=== PATIENT | male | born 1965 | race Caucasian/White ===

== ENCOUNTER 2018-10-16 19:34 | Outpatient (CLI) | payer OTHER | END 2018-10-16 19:35 | disposition short-term general hospital (02) | LOC: EMS 19:34 | PROVIDERS: ATTEND Surgery | DX: R11.2 Nausea with vomiting, unspecified (principal) | CPT/HCPCS: A0425; A0427 ==

== ENCOUNTER 2020-09-17 15:09 | Outpatient (CLI) | payer OTHER | END 2020-09-17 15:10 | disposition home or self-care (01) | LOC: COV 15:09 | PROVIDERS: ATTEND Family Medicine | DX: Z20.822 Contact with and (suspected) exposure to COVID-19 (principal) ==

== ENCOUNTER 2021-08-07 13:48 | Emergency (ER) | payer OTHER ==
--- NOTE | 2021-08-07 14:07 | ED Physician Documentation ---
History of Present Illness - Stated complaint Stated Complaint: N/V, SOA - Chief complaint Chief Complaint: Abd Pain - Additonal information Additional information: Patient is a 55-year-old male presenting to the emergency department with chief complaints of anxiety, shortness of breath, nausea, vomiting. Endorses for history of PTSD. had bad migraine a few days ago. since that time has been feeling increasingly anxious, as though all of his "muscles are tightening up". States that ordinarily he manages his anxiety and PTSD at home with yoga and deep breathing exercises however these have not been working for him. He does report that he follows with a psychiatrist who practices out of [facility] and that he is currently tapering down off a course of antidepressants. has not been able to follow-up with his psychiatrist for the last several weeks because "my doctor had a stroke". Reports also on occasion takes trazodone for insomnia but has not needed this for several weeks. Denies any fever, chills, chest pain, shortness of breath, abdominal pain, use of alcohol, recreational substances, suicidal ideation, homicidal ideation, auditory or visual hallucinations. Review of Systems Constitutional: denies: Fever Eyes: denies: Loss of vision Ears: denies: Loss of hearing Nose: denies: Rhinorrhea / runny nose Throat: denies: Dental pain / toothache Cardiac: denies: Chest pain / pressure Respiratory: denies: Dyspnea : denies: Dysuria Skin: denies: Rash Musculoskeletal: denies: Neck pain Psychiatric: reports: Anxiety, Other (PTSD) PD PAST MEDICAL HISTORY - Allergies Allergies/Adverse Reactions: Allergies Allergy/AdvReac Type Severity Reaction Status Date / Time No Known Drug Allergies Allergy Verified 08/07/21 13:58 PD ED PE NORMAL - Vitals Vital signs reviewed: Yes - General General: Other (Pt with anxious affect, taking gasping heaving breaths. ) - HEENT HEENT: Atraumatic, PERRL, Pharynx benign, Dentition benign - Neck Neck: Supple, no meningeal sign, No JVD, No bruit - Cardiac Cardiac: RRR - Respiratory Respiratory: Clear bilaterally - Abdomen Abdomen: Normal bowel sounds, Soft - Male Male : Deferred - Rectal Rectal: Deferred PD ED PE EXPANDED - Psych Psych: Anxious Results - Vitals Vitals: Vital Signs - 24 hr 08/07/21 08/07/21 13:58 16:25 Temperature 37.0 C Heart Rate 94 69 Respiratory 26 H 14 Rate Blood Pressure 132/87 H 108/66 O2 Saturation 95 100 Oxygen O2 Source Room air - Labs Labs: Laboratory Tests 08/07/21 08/07/21 14:02 14:02 WBC 13.3 H RBC 5.37 Hgb 16.2 Hct 48.5 MCV 90.3 MCH 30.2 MCHC 33.4 RDW 12.6 Plt Count 225 MPV 9.7 Neut # (Auto) 10.3 H Lymph # (Auto) 1.9 Forrest # (Auto) 0.9 Eos # (Auto) 0.0 Baso # (Auto) 0.0 Absolute Nucleated RBC 0.00 Nucleated RBC % 0.0 Sodium 139 Potassium 4.0 Chloride 102 Carbon Dioxide 26 Anion Gap 11.0 BUN 18 Creatinine 1.1 Estimated GFR (MDRD) 70 L Glucose 136 H Calcium 9.9 Total Bilirubin 0.7 AST 42 ALT 49 Alkaline Phosphatase 67 Total Protein 7.0 Albumin 4.5 Globulin 2.5 Albumin/Globulin Ratio 1.8 Lipase 26 PD MEDICAL DECISION MAKING - ED course Complexity details: reviewed results, d/w patient ED course: Patient is 55-year-old male with known history PTSD, anxiety, polysubstance abuse issues that are presenting to the emergency department with acute anxiety. Patient had a low level tachycardia and an obviously anxious affect on arrival to the emergency department. Despite his agitationHe however denied any suicidal or homicidal ideation, auditory visual hallucinations and demonstrated reasonable ability to direct himself. He otherwise showed clear decision-making capacity while in the emergency department. IV access was obtained and he was given Haldol, Benadryl for agitation. I did obtain an EKG which demonstrated a normal QTC as well as some basic labs which are within normal limits are nonactionable. On reevaluation he continued to endorse for feeling somewhat agitated and offered him evaluation with social work however he declined this intervention, stating that he wanted to go home to continue following up with his outpatient psychiatrist and psychologist. At this time he does continue to demonstrate clear decision-making capacity and I will discharge for outpatient with follow-up however he was encouraged to return to the emergency department for any new or worsening symptoms. Departure - Departure Disposition: 01 Home, Self Care Clinical Impression: Anxiety, PTSD (post-traumatic stress disorder) Condition: Fair Instructions: ED Stress React Comments: Minus to care for you today at [facility]. Please continue to work towards follow-up with both your psychiatrist and your psychologist. If it anytime you change your mind and would like to be seen by the mental health nursing home social worker available in our emergency [id number] was welcome to return. If it anytime you develop any new or worsening symptoms or have thoughts of self-harm please do not hesitate to come back. Discharge Date/Time: 08/07/21 16:26
[2021-08-07 14:09] LABS: BASOPHILS % (AUTO) 0.3 %; EOSINOPHILS % (AUTO) 0.2 %; HCT - HEMATOCRIT 48.5 % (42.0-52.0); HGB - HEMOGLOBIN 16.2 g/dL (14.0-18.0); LYMPHOCYTES # (AUTO) 1.9 10^3/uL (1.5-3.5); LYMPHOCYTES % (AUTO) 14.6 %; MEAN CORPUSCULAR HEMOGLOBIN 30.2 pg (27.0-31.0); MEAN CORPUSCULAR HGB CONC 33.4 g/dL (32.0-36.0); MEAN CORPUSCULAR VOLUME 90.3 fL (80.0-94.0); MEAN PLATELET VOLUME 9.7 fL (7.4-11.4); MONOCYTES # (AUTO) 0.9 10^3/uL (0.0-1.0); MONOCYTES % (AUTO) 6.4 %; NEUTROPHILS # (AUTO) 10.3 10^3/uL (1.5-6.6); PLT - PLATELET COUNT 225 10^3/uL (130-450); RED BLOOD COUNT 5.37 10^6/uL (4.70-6.10); RED CELL DISTRIBUTION WIDTH 12.6 % (12.0-15.0); WHITE BLOOD COUNT 13.3 x10^3/uL (4.8-10.8)
[2021-08-07] MEDS: HALOPERIDOL 5 MG/ML VIAL IM STA (14:16)
[2021-08-07] MEDS: diphenhydrAMINE INJ 50 MG/ML VIAL IVP STA (14:16)
[2021-08-07] MEDS: SODIUM CHLORIDE 0.9% 1,000 ML IV STA (14:16)
[2021-08-07 14:23] LABS: ALBUMIN 4.5 g/dL (3.2-5.5); ALBUMIN/GLOBULIN RATIO 1.8 (1.0-2.2); BILIRUBIN,TOTAL 0.7 mg/dL (0.2-1.0); CALCIUM 9.9 mg/dL (8.5-10.3); CREATININE 1.1 mg/dL (0.6-1.2)
[2021-08-07 16:26] VITALS: BP 108/66
== END 2021-08-07 16:26 | disposition home or self-care (01) ==
LOC: ED 13:48
DX: F41.9 Anxiety disorder, unspecified (principal); F43.10 Post-traumatic stress disorder, unspecified
CPT/HCPCS: 36415; 80053; 83690; 85025; 93005; 96361; 96372; 96374; 99284; J1200

== ENCOUNTER 2021-08-16 08:00 | Outpatient (CLI) | payer OTHER | END 2021-08-16 23:59 | disposition home or self-care (01) | LOC: LAB.S 08:00 | PROVIDERS: ATTEND Physician Assistant Medical | DX: R11.2 Nausea with vomiting, unspecified (principal); Z20.822 Contact with and (suspected) exposure to COVID-19 | CPT/HCPCS: 87275; 87276 ==

== ENCOUNTER 2021-08-16 13:14 | Inpatient (IN) | payer OTHER ==
[2021-08-16] MEDS ORDERED: LACTATED RINGERS 2,109.21 ML IV STA (13:33)
[2021-08-16] MEDS ORDERED: HALOPERIDOL 5 MG/ML VIAL IVP ONE (13:34)
--- NOTE | 2021-08-16 13:37 | ED Physician Documentation ---
History of Present Illness - Stated complaint Stated Complaint: FEVER,BODY PX - Chief complaint Chief Complaint: General - History obtained from History obtained from: Patient - Additonal information Additional information: This is a medically healthy 55-year-old gentleman with history of PTSD who was seen last week for panicky symptoms. He was doing well for a few days after that but over the last 3 days or so has had body aches, headache, light sensitivity, neck stiffness, joint aches, vomiting. There is no associated sore throat, runny nose, cough, or diarrhea. No sick contacts. He has been immunized against Covid. He was seen at the urgent care and given some medications which were not too helpful and then came here for further evaluation and treatment. Review of Systems Ten Systems: 10 systems reviewed and negative Constitutional: reports: Fever, Chills, Myalgias, Fatigue Ears: denies: Loss of hearing, Ear pain Nose: denies: Rhinorrhea / runny nose Throat: denies: Sore throat Cardiac: denies: Chest pain / pressure, Palpitations Respiratory: denies: Dyspnea, Cough PD PAST MEDICAL HISTORY - Past Medical History Psych: Anxiety - Allergies Allergies/Adverse Reactions: Allergies Allergy/AdvReac Type Severity Reaction Status Date / Time No Known Drug Allergies Allergy Verified 08/07/21 13:58 - Social History Does the pt smoke?: No Smoking Status: Never smoker Does the pt drink ETOH?: Yes - Immunizations Immunizations are current?: No - POLST Patient has POLST: No PD ED PE NORMAL - Vitals Vital signs reviewed: Yes - General General: Alert and oriented X 3, Other (He is noted to be hypotensive which is repeated on multiple readings in both arms and both arms are equivalent. He is mildly anxious and photophobic. Not septic appearing.) - Neck Neck: Supple, no meningeal sign (There is absolutely no nuchal rigidity.) - Cardiac Cardiac: RRR, No murmur - Respiratory Respiratory: No respiratory distress, Clear bilaterally - Abdomen Abdomen: Normal bowel sounds, Soft, Non tender - Back Back: No CVA TTP, No spinal TTP - Derm Derm: Normal color, Warm and dry, No rash - Extremities Extremities: No edema, No calf tenderness / cord - Neuro Neuro: Alert and oriented X 3, Normal speech Eye Opening: Spontaneous Motor: Obeys Commands Verbal: Oriented GCS Score: 15 - Psych Psych: Normal mood, Normal affect Results - Vitals Vitals: Vital Signs - 24 hr 08/16/21 08/16/21 08/16/21 13:20 13:34 13:45 Temperature 36.6 C Heart Rate 74 67 66 Respiratory 18 12 11 L Rate Blood Pressure 80/40 L 84/51 L 78/54 L O2 Saturation 98 100 100 08/16/21 08/16/21 08/16/21 13:53 14:04 14:27 Temperature Heart Rate 65 63 73 Respiratory 13 16 15 Rate Blood Pressure 84/51 L 80/58 L 92/53 L O2 Saturation 100 100 95 08/16/21 08/16/21 08/16/21 14:30 15:00 15:55 Temperature Heart Rate 66 67 69 Respiratory 11 L 16 10 L Rate Blood Pressure 88/52 L 95/56 L 96/50 L O2 Saturation 99 97 100 08/16/21 08/16/21 08/16/21 16:15 16:57 17:00 Temperature Heart Rate 66 72 70 Respiratory 23 16 14 Rate Blood Pressure 86/49 L 94/55 L 94/53 L O2 Saturation 100 97 96 Oxygen O2 Source Room air - Labs Labs: Microbiology 08/16/21 16:07 CSF Culture - Preliminary Cerebral Spinal Fluid Laboratory Tests 08/16/21 08/16/21 08/16/21 13:28 13:40 13:40 WBC 7.9 RBC 4.53 L Hgb 13.8 L Hct 40.4 L MCV 89.2 MCH 30.5 MCHC 34.2 RDW 12.8 Plt Count 84 L MPV 10.4 Reticulocyte % (Auto) Neut # (Auto) Not Reportable Lymph # (Auto) Not Reportable Gove # (Auto) Not Reportable Eos # (Auto) Not Reportable Baso # (Auto) Not Reportable Absolute Nucleated RBC Not Reportable Total Counted 100 Band Neuts % (Manual) 0 Abnorm Lymph % (Manual) 0 Nucleated RBC % Not Reportable Neutrophils # (Manual) 7.0 H Lymphocytes # (Manual) 0.6 L Monocytes # (Manual) 0.2 Eosinophils # (Manual) 0.1 Basophils # (Manual) 0.0 Differential Comment MANUAL DIFFERENTIAL Manual Slide Review Indicated WBC Morphology NORMAL APPEARANCE Platelet Estimate DECREASED (<130,000) Platelet Morphology NORMAL SONU RBC Morph Micro Appear NORMAL APPEARANCE ESR Absolute Retic PT INR APTT Fibrinogen D-Dimer Sodium 126 L Potassium 3.2 L Chloride 91 L Carbon Dioxide 24 Anion Gap 11.0 BUN 20 Creatinine 1.4 H Estimated GFR (MDRD) 53 L Glucose 145 H Lactic Acid Calcium 8.6 Total Bilirubin 2.1 H Direct Bilirubin Indirect Bilirubin AST 58 H ALT 54 Alkaline Phosphatase 58 Lactate Dehydrogenase Total Creatine Kinase C-Reactive Protein Total Protein 6.3 L Albumin 3.4 Globulin 2.9 Albumin/Globulin Ratio 1.2 TSH Cortisol Urine Color Urine Clarity Urine pH Ur Specific Bellflower Urine Protein Urine Glucose (UA) Urine Ketones Urine Occult Blood Urine Nitrite Urine Bilirubin Urine Urobilinogen Ur Leukocyte Esterase Urine RBC Urine WBC Ur Squamous Epith Cells Urine Bacteria Urine Culture Comments CSF Color CSF Clarity Xanthrochromic CSF WBC CSF RBC CSF Cell Count Tube # CSF Glucose CSF Total Protein Nasal Adenovirus (PCR) NOT DETECTED Nasal B. parapertussis DNA (PCR) NOT DETECTED Nasal Coronavir 229E PCR NOT DETECTED Nasal Coronavir HKU1 PCR NOT DETECTED Nasal Coronavir NL63 PCR NOT DETECTED Nasal Coronavir OC43 PCR NOT DETECTED Nasal Enterovir/Rhinovir PCR NOT DETECTED Nasal Influenza B PCR NOT DETECTED Nasal Influenza A PCR NOT DETECTED Nasal Parainfluen 1 PCR NOT DETECTED Nasal Parainfluen 2 PCR NOT DETECTED Nasal Parainfluen 3 PCR NOT DETECTED Nasal Parainfluen 4 PCR NOT DETECTED Nasal RSV (PCR) NOT DETECTED Nasal B.pertussis DNA PCR NOT DETECTED Nasal C.pneumoniae (PCR) NOT DETECTED Lukas Human Metapneumo PCR NOT DETECTED Nasal M.pneumoniae (PCR) NOT DETECTED Nasal SARS-CoV-2 (PCR) NOT DETECTED Ethyl Alcohol 08/16/21 08/16/21 08/16/21 13:40 13:40 13:40 WBC RBC Hgb Hct MCV MCH MCHC RDW Plt Count MPV Reticulocyte % (Auto) Neut # (Auto) Lymph # (Auto) Gove # (Auto) Eos # (Auto) Baso # (Auto) Absolute Nucleated RBC Total Counted Band Neuts % (Manual) Abnorm Lymph % (Manual) Nucleated RBC % Neutrophils # (Manual) Lymphocytes # (Manual) Monocytes # (Manual) Eosinophils # (Manual) Basophils # (Manual) Differential Comment Manual Slide Review WBC Morphology Platelet Estimate Platelet Morphology RBC Morph Micro Appear ESR Absolute Retic PT INR APTT Fibrinogen D-Dimer Sodium Potassium Chloride Carbon Dioxide Anion Gap BUN Creatinine Estimated GFR (MDRD) Glucose Lactic Acid 2.0 Calcium Total Bilirubin Direct Bilirubin Indirect Bilirubin AST ALT Alkaline Phosphatase Lactate Dehydrogenase Total Creatine Kinase 80 C-Reactive Protein 21.3 H Total Protein Albumin Globulin Albumin/Globulin Ratio TSH 1.17 Cortisol 28.1 Urine Color Urine Clarity Urine pH Ur Specific Bellflower Urine Protein Urine Glucose (UA) Urine Ketones Urine Occult Blood Urine Nitrite Urine Bilirubin Urine Urobilinogen Ur Leukocyte Esterase Urine RBC Urine WBC Ur Squamous Epith Cells Urine Bacteria Urine Culture Comments CSF Color CSF Clarity Xanthrochromic CSF WBC CSF RBC CSF Cell Count Tube # CSF Glucose CSF Total Protein Nasal Adenovirus (PCR) Nasal B. parapertussis DNA (PCR) Nasal Coronavir 229E PCR Nasal Coronavir HKU1 PCR Nasal Coronavir NL63 PCR Nasal Coronavir OC43 PCR Nasal Enterovir/Rhinovir PCR Nasal Influenza B PCR Nasal Influenza A PCR Nasal Parainfluen 1 PCR Nasal Parainfluen 2 PCR Nasal Parainfluen 3 PCR Nasal Parainfluen 4 PCR Nasal RSV (PCR) Nasal B.pertussis DNA PCR Nasal C.pneumoniae (PCR) Lukas Human Metapneumo PCR Nasal M.pneumoniae (PCR) Nasal SARS-CoV-2 (PCR) Ethyl Alcohol 08/16/21 08/16/21 08/16/21 14:26 14:38 14:39 WBC RBC 4.27 L Hgb Hct MCV MCH MCHC RDW Plt Count MPV Reticulocyte % (Auto) 0.73 Neut # (Auto) Lymph # (Auto) Gove # (Auto) Eos # (Auto) Baso # (Auto) Absolute Nucleated RBC Total Counted Band Neuts % (Manual) Abnorm Lymph % (Manual) Nucleated RBC % Neutrophils # (Manual) Lymphocytes # (Manual) Monocytes # (Manual) Eosinophils # (Manual) Basophils # (Manual) Differential Comment Manual Slide Review WBC Morphology Platelet Estimate Platelet Morphology RBC Morph Micro Appear ESR 20 Absolute Retic 0.031 PT INR APTT Fibrinogen D-Dimer Sodium Potassium Chloride Carbon Dioxide Anion Gap BUN Creatinine Estimated GFR (MDRD) Glucose Lactic Acid Calcium Total Bilirubin Direct Bilirubin Indirect Bilirubin AST ALT Alkaline Phosphatase Lactate Dehydrogenase Total Creatine Kinase C-Reactive Protein Total Protein Albumin Globulin Albumin/Globulin Ratio TSH Cortisol Urine Color Urine Clarity Urine pH Ur Specific Bellflower Urine Protein Urine Glucose (UA) Urine Ketones Urine Occult Blood Urine Nitrite Urine Bilirubin Urine Urobilinogen Ur Leukocyte Esterase Urine RBC Urine WBC Ur Squamous Epith Cells Urine Bacteria Urine Culture Comments CSF Color CSF Clarity Xanthrochromic CSF WBC CSF RBC CSF Cell Count Tube # CSF Glucose CSF Total Protein Nasal Adenovirus (PCR) Nasal B. parapertussis DNA (PCR) Nasal Coronavir 229E PCR Nasal Coronavir HKU1 PCR Nasal Coronavir NL63 PCR Nasal Coronavir OC43 PCR Nasal Enterovir/Rhinovir PCR Nasal Influenza B PCR Nasal Influenza A PCR Nasal Parainfluen 1 PCR Nasal Parainfluen 2 PCR Nasal Parainfluen 3 PCR Nasal Parainfluen 4 PCR Nasal RSV (PCR) Nasal B.pertussis DNA PCR Nasal C.pneumoniae (PCR) Lukas Human Metapneumo PCR Nasal M.pneumoniae (PCR) Nasal SARS-CoV-2 (PCR) Ethyl Alcohol < 5.0 08/16/21 08/16/21 08/16/21 14:39 14:39 14:39 WBC RBC Hgb Hct MCV MCH MCHC RDW Plt Count MPV Reticulocyte % (Auto) Neut # (Auto) Lymph # (Auto) Gove # (Auto) Eos # (Auto) Baso # (Auto) Absolute Nucleated RBC Total Counted Band Neuts % (Manual) Abnorm Lymph % (Manual) Nucleated RBC % Neutrophils # (Manual) Lymphocytes # (Manual) Monocytes # (Manual) Eosinophils # (Manual) Basophils # (Manual) Differential Comment Manual Slide Review WBC Morphology Platelet Estimate Platelet Morphology RBC Morph Micro Appear ESR Absolute Retic PT 16.4 H INR 1.5 H APTT 28.6 Fibrinogen 510 H D-Dimer 817.5 H Sodium Potassium Chloride Carbon Dioxide Anion Gap BUN Creatinine Estimated GFR (MDRD) Glucose Lactic Acid Calcium Total Bilirubin 2.0 H Direct Bilirubin 0.4 Indirect Bilirubin 1.6 AST ALT Alkaline Phosphatase Lactate Dehydrogenase 171 Total Creatine Kinase C-Reactive Protein Total Protein Albumin Globulin Albumin/Globulin Ratio TSH Cortisol Urine Color Urine Clarity Urine pH Ur Specific Bellflower Urine Protein Urine Glucose (UA) Urine Ketones Urine Occult Blood Urine Nitrite Urine Bilirubin Urine Urobilinogen Ur Leukocyte Esterase Urine RBC Urine WBC Ur Squamous Epith Cells Urine Bacteria Urine Culture Comments CSF Color CSF Clarity Xanthrochromic CSF WBC CSF RBC CSF Cell Count Tube # CSF Glucose CSF Total Protein Nasal Adenovirus (PCR) Nasal B. parapertussis DNA (PCR) Nasal Coronavir 229E PCR Nasal Coronavir HKU1 PCR Nasal Coronavir NL63 PCR Nasal Coronavir OC43 PCR Nasal Enterovir/Rhinovir PCR Nasal Influenza B PCR Nasal Influenza A PCR Nasal Parainfluen 1 PCR Nasal Parainfluen 2 PCR Nasal Parainfluen 3 PCR Nasal Parainfluen 4 PCR Nasal RSV (PCR) Nasal B.pertussis DNA PCR Nasal C.pneumoniae (PCR) Lukas Human Metapneumo PCR Nasal M.pneumoniae (PCR) Nasal SARS-CoV-2 (PCR) Ethyl Alcohol 08/16/21 08/16/21 15:58 16:07 WBC RBC Hgb Hct MCV MCH MCHC RDW Plt Count MPV Reticulocyte % (Auto) Neut # (Auto) Lymph # (Auto) Gove # (Auto) Eos # (Auto) Baso # (Auto) Absolute Nucleated RBC Total Counted Band Neuts % (Manual) Abnorm Lymph % (Manual) Nucleated RBC % Neutrophils # (Manual) Lymphocytes # (Manual) Monocytes # (Manual) Eosinophils # (Manual) Basophils # (Manual) Differential Comment Manual Slide Review WBC Morphology Platelet Estimate Platelet Morphology RBC Morph Micro Appear ESR Absolute Retic PT INR APTT Fibrinogen D-Dimer Sodium Potassium Chloride Carbon Dioxide Anion Gap BUN Creatinine Estimated GFR (MDRD) Glucose Lactic Acid Calcium Total Bilirubin Direct Bilirubin Indirect Bilirubin AST ALT Alkaline Phosphatase Lactate Dehydrogenase Total Creatine Kinase C-Reactive Protein Total Protein Albumin Globulin Albumin/Globulin Ratio TSH Cortisol Urine Color YELLOW Urine Clarity HAZY Urine pH 6.0 Ur Specific Bellflower 1.020 Urine Protein 30 H Urine Glucose (UA) NEGATIVE Urine Ketones NEGATIVE Urine Occult Blood MODERATE H Urine Nitrite NEGATIVE Urine Bilirubin NEGATIVE Urine Urobilinogen 2 H Ur Leukocyte Esterase NEGATIVE Urine RBC 6-10 H Urine WBC 0-3 Ur Squamous Epith Cells NONE SEEN Urine Bacteria None Seen Urine Culture Comments NOT INDICATED CSF Color COLORLESS CSF Clarity CLEAR Xanthrochromic ABSENT CSF WBC 1 CSF RBC 3 H CSF Cell Count Tube # CSF TUBE# 3 CSF Glucose 78 H CSF Total Protein 40 Nasal Adenovirus (PCR) Nasal B. parapertussis DNA (PCR) Nasal Coronavir 229E PCR Nasal Coronavir HKU1 PCR Nasal Coronavir NL63 PCR Nasal Coronavir OC43 PCR Nasal Enterovir/Rhinovir PCR Nasal Influenza B PCR Nasal Influenza A PCR Nasal Parainfluen 1 PCR Nasal Parainfluen 2 PCR Nasal Parainfluen 3 PCR Nasal Parainfluen 4 PCR Nasal RSV (PCR) Nasal B.pertussis DNA PCR Nasal C.pneumoniae (PCR) Lukas Human Metapneumo PCR Nasal M.pneumoniae (PCR) Nasal SARS-CoV-2 (PCR) Ethyl Alcohol - Rads (name of study) CT of the head, chest PE protocol, and abdomen are all negative Radiology: EMP read contemporaneously Procedures - Lumbar Puncture Position: Laying right side Location: L3-L4, Midline approach Anesthesia: Local lidocaine CSF: Clear Other: Sterile prep and drape, Patient tolerated well, No complications, Bleeding PD MEDICAL DECISION MAKING - ED course ED course: 55-year-old gentleman with what sounds like a viral illness, he is well- appearing and there is no nuchal rigidity. That said he is hypotensive albeit not tachycardic. His medications are reviewed, not on any beta-blockers or other AV nicky blocking agents that would cause blunting of a reflex tachycardia. He remained hypotensive and still without any reflex tachycardia despite 2 L of IV crystalloid. Labs are quite interesting, since being seen here 10 days ago his white count has gone down from 13,002 7000, hemoglobin down from 16,002 13.816-13.8 despite the fact that he should be hemoconcentrated, and platelets have dropped significantly from well into the normal range to 84. His bilirubin is up a bit which was normal at the last visit, this led to consideration for hemolysis, but his LDH is normal. Also led to the thought of DIC and he does have elevated INR, fibrinogen, and D-dimer. CT of the head, angiography of the chest, and abdomen and pelvis were normal. This was followed by an LP which was unremarkable. At that point sed rate, CRP, CK, TSH were added on. Discussed the case with Dr. Kim for observation given persistent hypotension at 5:15 PM. We discussed whether or not to start antibiotics for possible sepsis. His white count is normal but he remains hypotensive with an elevated CRP and he had a fever at home so it seems reasonable to start antibiotics pending cultures. - Critical Care Time(min): 45 Time Includes: Direct patient care, Review records, Reassess patient, Document care, Coordinate care, Medical consult, Family consult for tx dec Data interpretation: Labs, Pulse ox Procedures included in critical care time: Peripheral IV Procedures excluded from critical care time: Lumbar puncture Departure - Departure Disposition: ED Place in Observation Clinical Impression: Fever, KIM (acute kidney injury), Hyponatremia, Hypotension, Thrombocytopenia Condition: Stable Discharge Date/Time: 08/16/21 18:50
[2021-08-16 13:48] LABS: BASOPHILS % (AUTO) 0.3 %; HCT - HEMATOCRIT 40.4 % (42.0-52.0); HGB - HEMOGLOBIN 13.8 g/dL (14.0-18.0); LYMPHOCYTES % (AUTO) 3.8 %; MEAN CORPUSCULAR HEMOGLOBIN 30.5 pg (27.0-31.0); MEAN CORPUSCULAR HGB CONC 34.2 g/dL (32.0-36.0); MEAN CORPUSCULAR VOLUME 89.2 fL (80.0-94.0); MEAN PLATELET VOLUME 10.4 fL (7.4-11.4); MONOCYTES % (AUTO) 3.5 %; NEUTROPHILS % (AUTO) 92.1 %; PLT - PLATELET COUNT 84 10^3/uL (130-450); RED BLOOD COUNT 4.53 10^6/uL (4.70-6.10); RED CELL DISTRIBUTION WIDTH 12.8 % (12.0-15.0); WHITE BLOOD COUNT 7.9 x10^3/uL (4.8-10.8)
[2021-08-16 14:00] LABS: ALBUMIN 3.4 g/dL (3.2-5.5); ALBUMIN/GLOBULIN RATIO 1.2 (1.0-2.2); BILIRUBIN,TOTAL 2.1 mg/dL (0.2-1.0); CALCIUM 8.6 mg/dL (8.5-10.3); CREATININE 1.4 mg/dL (0.6-1.2); POTASSIUM 3.2 mmol/L (3.5-5.0); TOTAL PROTEIN 6.3 g/dL (6.7-8.2)
[2021-08-16 14:42] LABS: SLIDE REVIEW? Indicated
[2021-08-16 14:43] LABS: ABNORMAL LYMPHS % (MANUAL) 0 %; BAND NEUTROPHILS % (MANUAL) 0 %
[2021-08-16 14:43] LABS: B. PARAPERTUSSIS- RESP PCR PAN NOT DETECTED; B. PERTUSSIS- RESP PCR PANEL NOT DETECTED; C. PNEUMONIAE- RESP PCR PANEL NOT DETECTED; CORONAVIRUS 229E-RESP PCR NOT DETECTED; CORONAVIRUS HKU1-RESP PCR NOT DETECTED; CORONAVIRUS NL63-RESP PCR NOT DETECTED; CORONAVIRUS OC43-RESP PCR NOT DETECTED; HUMAN METAPNEUMOVIRUS NOT DETECTED; INFLUENZA A- RESP PCR PANEL NOT DETECTED; INFLUENZA B - RESP PCR PANEL NOT DETECTED; M. PNEUMONIAE- RESP PCR PANEL NOT DETECTED; PARAINFLUENZA VIRUS 1 NOT DETECTED; PARAINFLUENZA VIRUS 2 NOT DETECTED; PARAINFLUENZA VIRUS 3 NOT DETECTED; PARAINFLUENZA VIRUS 4 NOT DETECTED; RHINOVIRUS/ENTEROVIRUS NOT DETECTED; RSV- RESP PCR PANEL NOT DETECTED; SARS-CoV-2 -RESP PCR PANEL NOT DETECTED
[2021-08-16 14:44] LABS: EOSINOPHILS # (MANUAL) 0.1 10^3/uL (0-0.7); LYMPHOCYTES # (MANUAL) 0.6 10^3/uL (1.5-3.5); LYMPHOCYTES % (MANUAL) 7 %; MONOCYTES # (MANUAL) 0.2 10^3/uL (0.0-1.0)
[2021-08-16 14:46] LABS: PLATELET ESTIMATE, MANUAL DECREASED (<130,000) (NORMAL)
[2021-08-16 14:47] LABS: PLATELET MORPHOLOGY NORMAL APP (NORMAL); RBC MORPHOLOGY (MULTIPLE) NORMAL APPEARANCE (NORMAL); WBC MORPHOLOGY (MULTIPLE) NORMAL APPEARANCE (NORMAL)
[2021-08-16 14:48] LABS: DIFFERENTIAL COMMENT MANUAL DIFFERENTIAL
[2021-08-16 14:48] LABS: ABSOLUTE RETICS # AUTO 0.031 10^6/uL (0.020-0.110); RED BLOOD COUNT 4.27 10^6/uL (4.70-6.10); RETICULOCYTE COUNT % (AUTO) 0.73 % (0.5-2.3)
[2021-08-16 14:53] LABS: INR 1.5 (0.8-1.2); PT - PROTHROMBIN TIME 16.4 secs (9.9-12.6)
[2021-08-16 15:00] LABS: BILIRUBIN,DIRECT 0.4 mg/dL (0.1-0.5); BILIRUBIN,INDIRECT 1.6 mg/dL
[2021-08-16] MEDS ORDERED: HYDROmorphone 1 MG/ML CARPUJECT IVP STA (15:04)
[2021-08-16 15:06] LABS: PARTIAL THROMBOPLASTIN TIME 28.6 secs (24.9-33.3)
[2021-08-16] MEDS ORDERED: IOPAMIDOL-300 100 ML VIAL ONE ×2 (15:18→16:08)
[2021-08-16 15:32] LABS: D-DIMER 817.5 ng/mL (200.0-255.0)
[2021-08-16 16:04] LABS: BILIRUBIN,URINE NEGATIVE (NEGATIVE); CLARITY,URINE HAZY (CLEAR); GLUCOSE, URINE (UA) NEGATIVE (NEGATIVE); KETONES,URINE (UA) NEGATIVE (NEGATIVE); LEUKOCYTE ESTERASE, URINE NEGATIVE (NEGATIVE); NITRITE,URINE NEGATIVE (NEGATIVE); OCCULT BLOOD,URINE MODERATE (NEGATIVE); PROTEIN,URINE 30 mg/dL (NEGATIVE); UROBILINOGEN,URINE 2 E.U./dL (NORMAL)
--- NOTE | 2021-08-16 16:07 | CT Report ---
PROCEDURE: HEAD WO INDICATIONS: headache TECHNIQUE: Noncontrast 4.5 mm thick angled axial sections acquired from the foramen magnum to the vertex. For r adiation dose reduction, the following was used: automated exposure control, adjustment of mA and/or kV according to patient size. COMPARISON: None. FINDINGS: Image quality: Excellent. CSF spaces: Basal cisterns are patent. No extra-axial fluid collections. Ventricles are normal in size and shape. Brain: No midline shift. No intracranial masses or hemorrhage. Baldwin-white matter interface is norm al. Skull and face: Calvarium and visualized facial bones are intact, without suspicious lesions. Sinuses: Visualized sinuses and mastoids are clear. IMPRESSION: No acute intracranial abnormality. Reviewed by: Elbert Jackson MD on 08/16/2021 4:06 PM [facility] Approved by: Elbert Jackson MD on 08/16/2021 4:06 PM [facility] Station ID: [id number]
--- NOTE | 2021-08-16 16:08 | XRAY Report ---
PROCEDURE: Chest 1 View X-Ray INDICATIONS: FUO TECHNIQUE: 2 AP views of the chest was acquired. COMPARISON: None. FINDINGS: Surgical changes and devices: None. Lungs and pleura: No pleural effusions or pneumothorax. Lungs are clear. Mediastinum: Mediastinal contours appear normal. Heart size is normal. Bones and chest wall: No suspicious bony lesions. Overlying soft tissues appear unremarkable. IMPRESSION: No acute cardiopulmonary abnormality. Reviewed by: Elbert Jackson MD on 08/16/2021 4:06 PM [facility] Approved by: Elbert Jackson MD on 08/16/2021 4:06 PM [facility] Station ID: [id number]
[2021-08-16 16:11] LABS: BACTERIA,URINE None Seen /HPF (None Seen); SQUAMOUS EPITHELIAL CELL,UR NONE SEEN (<= Few); WBC,URINE 0-3 /HPF (0-3)
--- NOTE | 2021-08-16 16:12 | CT Report ---
PROCEDURE: Abdomen/Pelvis W INDICATIONS: IV only, FUO CONTRAST: IV CONTRAST: Isovue 300 ml: 100 PO CONTRAST: *NO PO CONTRAST TECHNIQUE: After the administration of intravenous contrast, 5 mm thick sections acquired from the diaphragms to the symphysis. 5 mm thick coronal and sagittal reformats were acquired. For radiation dose reducti on, the following was used: automated exposure control, adjustment of mA and/or kV according to rasheed ent size. COMPARISON: None. FINDINGS: Image quality: Excellent. ABDOMEN: Lung bases: Mild atelectasis is seen in the lung bases. Scattered small cysts are seen in the lower l obes. Heart size is normal. Solid organs: Small nonspecific hypodensities are seen in both lobes of the liver that may represent cysts. Gallbladder is unremarkable. Biliary system is non dilated. Pancreas enhances normally. Spl een is within normal limits in size. No adrenal nodules. Kidneys demonstrate normal size and enhance ment, without hydronephrosis. Peritoneum and bowel: Scattered diverticula are seen in the colon without signs of acute diverticulit is. The appendix is not well-visualized, but no acute inflammatory changes are seen near the cecal ti p. Nodes and vessels: No retroperitoneal or mesenteric adenopathy by size criteria. Aorta and inferior vena cava are normal in size. Miscellaneous: No ventral hernias. PELVIS: Genitourinary: Bladder wall thickness is normal. Miscellaneous: No inguinal hernias or adenopathy. Bones: No suspicious bony lesions. No vertebral body compression fractures. IMPRESSION: No acute abnormality identified in the abdomen or pelvis. No source of fever identified. Reviewed by: Elbert Jackson MD on 08/16/2021 4:11 PM PST Approved by: Elbert Jackson MD on 08/16/2021 4:11 PM PST Station ID: [id number]
[2021-08-16 16:25] LABS: CLARITY,CSF CLEAR (CLEAR); COLOR,CSF COLORLESS (COLORLESS); CSF TUBE # CSF TUBE# 3; CSF XANTHOCHROMIA ABSENT (ABSENT); RED BLOOD CELL,CSF 3 /mm^3 (0-1); WHITE BLOOD CELL,CSF 1 /mm^3 (0-5)
[2021-08-16] MEDS ORDERED: IOPAMIDOL-300 100 ML VIAL IVP ONE (16:29)
--- NOTE | 2021-08-16 16:31 | CT Report ---
PROCEDURE: ANGIO CHEST W/WO INDICATIONS: high dimer CONTRAST: IV CONTRAST: Isovue 300 ml: 60 PO CONTRAST: *NO PO CONTRAST TECHNIQUE: After the administration of intravenous contrast, 2 mm axial images were acquired from the pulmonary apices to the posterior costophrenic angles during the arterial phase. In addition, 1 mm lung kernel and 5 mm soft tissue kernel reconstructions were performed. 3-dimensional coronal oblique maximum int ensity projection (MIP) reformats, 8 mm axial MIP, and 5 mm coronal and sagittal MPR reformats were t hen performed through the thorax. For radiation dose reduction, the following was used: automated exp osure control, adjustment of mA and/or kV according to patient size. COMPARISON: Chest radiographs 08/16/2021 FINDINGS: Image quality: Excellent. Pulmonary arteries: Pulmonary arteries are normal in size, and demonstrate no intraluminal filling d efects to suggest central pulmonary embolism. Lungs and pleura: There is mild dependent atelectasis in the lung bases. Small nonspecific cysts are seen in both lungs, predominantly in the lower lobes. No acute consolidation. No pleural effusions or pneumothorax. Central and peripheral airways are patent. Mediastinum: Heart size is normal, without pericardial effusion. No mediastinal or hilar adenopathy . Thoracic aorta is normal in caliber and enhancement. Esophagus is normal in caliber, without hiat al hernia. Bones and chest wall: No suspicious bony lesions. Ribs and thoracic spine appear intact throughout. No axillary or supraclavicular adenopathy. The thyroid is normal in size. Abdomen: Visualized upper abdominal solid organs appear normal in the early arterial phase of enhanc ement. IMPRESSION: 1.No acute pulmonary embolus. 2.No acute abnormality is seen in the chest. Reviewed by: Elbert Jackson MD on 08/16/2021 4:29 PM PST Approved by: Elbert Jackson MD on 08/16/2021 4:29 PM PST Station ID: [id number]
[2021-08-16 16:36] LABS: CSF - GLUCOSE 78 mg/dL (45-70); TOTAL PROTEIN,CSF 40 mg/dL (15-45)
[2021-08-16 17:02] LABS: CORTISOL 28.1 ug/dL
[2021-08-16 17:07] LABS: THYROID STIMULATING HORMONE 1.17 uIU/mL (0.34-5.60)
[2021-08-16 17:10] LABS: CRP - C-REACTIVE PROTEIN 21.3 mg/dL (0-1.0)
[2021-08-16] MEDS ORDERED: cefTRIAXone 2 GM in SODIUM CHLORIDE 0.9% MINIBAG 100 ML IV STA (17:15)
[2021-08-16] MEDS ORDERED: VANCOMYCIN INJ 1.5 GM in SODIUM CHLORIDE 0.9% 500 ML IV STA (17:15)
[2021-08-16] MEDS ORDERED: ONDANSETRON 4 MG/2 ML VIAL IVP PRN (17:21)
[2021-08-16] MEDS ORDERED: POTASSIUM CHLORIDE 20 MEQ TABLET PO STA (17:29)
--- NOTE | 2021-08-16 17:31 | HISTORY & PHYSICAL EXAMINATION ---
Chief Complaint - Chief Complaint Chief Complaint: generalized weakness History of Present Illness - Admitted From Admitted From:: ER - History Obtained From Records Reviewed: [facility] History obtained from: pt and ER notes Exam Limitations: no - History of Present Illness HPI Comment/Other: This is a 55-year-old gentleman with a medical history significant of anxiety, PTSD, panicky symptoms, alcohol abuse and quitted alcohol one year ago who present ER complain of headache, neck pain, whole body ache and feeling of sick ness. He report he had fever at 100.6 with chill at home. He has poor appetite, did not drink enough fluid. over the last 3 days he had body aches, headache behind his bilateral eye, light sensitivity, neck pain, joint aches, nausea, vomiting, malaise. He report he has hx of sepsis without known infection resource. He usually run low blood pressure at home about 100/60. His PCP tried medicated for him for his low blood pressure, but he could not tolerate the medication, he did not remember the medication name. pt report he has no sick contacts. He has been immunized against Covid. Pt denies chest pain, shortness of breath. In ER pt was found to have low blood pressure and Afebrile. Initially his BP is 80/40, after IVF, his BP blood is upto 94/53. WBC and lactic acid is at normal arrange. Because pt complain of headache and neck pain, pt had Lumbar puncture and CSF staining and culture. WBC is 1, and glucose is 78. CSF preliminary culture show no organism found, no WBC. CTA of chest, CT of head and abdomen and CXR all are negative for acute process. ER start with Antibiotics Rocephin and vancomycin and started with intravenous IV fluids 2 liters. Given above medical conditions, medical team was consulted for admission. Discussed the care goal with the patient, patient hope to have full code. History - Past Medical History Psych: reports: Anxiety - Family & Social History Social History Notes: Patient Report he quit alcohol 1 year ago, he denies cigarette smoking or drug issue - POLST Patient has POLST: No Meds/Allgy - Allergies Allergies/Adverse Reactions: Allergies Allergy/AdvReac Type Severity Reaction Status Date / Time No Known Drug Allergies Allergy Verified 08/07/21 13:58 Review of Systems - Constitutional Constitutional: reports: Fatigue, Fever, Chills, Malaise, Weakness, Poor appetite - Eyes Eyes: denies: Pain, Blurred vision, Field loss, Vision loss - Ears, Nose & Throat Ears, Nose & Throat: denies: Ear pain, Sore throat - Cardiovascular Cariovascular: denies: Palpitations, Chest pain, Lightheadedness, Syncope, Exertional dyspnea - Respiratory Respiratory: denies: Cough, Sputum production, SOB at rest, SOB with exertion - Gastrointestinal Gastrointestinal: reports: Diarrhea, Nausea, Vomiting. denies: Abdominal pain - Genitourinary Genitourinary: denies: Dysuria - Musculoskeletal Musculoskeletal: reports: Muscle aches - Integumentary Integumentary: denies: Rash - Neurological Neurological: reports: General weakness, Headache. denies: Focal weakness, Dizziness, Numbness, Abnormal gait, Seizures, Incoordination, Slurred speech - Psychiatric Psychiatric: reports: Anxiety Exam - Vital Signs Vital Signs: Vital Signs x48h Temp Pulse Resp BP Pulse Ox 08/16/21 17:00 70 14 94/53 L 96 08/16/21 16:57 72 16 94/55 L 97 08/16/21 16:15 66 23 86/49 L 100 08/16/21 15:55 69 10 L 96/50 L 100 08/16/21 15:00 67 16 95/56 L 97 08/16/21 14:30 66 11 L 88/52 L 99 08/16/21 14:27 73 15 92/53 L 95 08/16/21 14:04 63 16 80/58 L 100 08/16/21 13:53 65 13 84/51 L 100 08/16/21 13:45 66 11 L 78/54 L 100 08/16/21 13:34 67 12 84/51 L 100 08/16/21 13:20 36.6 C 74 18 80/40 L 98 - Physical Exam General Appearance: positive: Alert, Mild distress. negative: Lethargic Eyes Bilateral: positive: Normal inspection, No lid inflammation ENT: positive: ENT inspection nml. negative: Purulent nasal drainage, Oral lesions Neck: positive: Nml inspection, Trachea midline. negative: Stiff neck, Tracheal deviation Respiratory: positive: Chest non-tender, No respiratory distress, Breath sounds nml. negative: Wheezes Cardiovascular: positive: Regular rate & rhythm. negative: Tachycardia, Bradycardia, Systolic murmur Peripheral Pulses: positive: 2+ Abdomen: positive: Non-tender, Nml bowel sounds, No distention. negative: Tenderness Back: positive: Nml inspection Skin: positive: Color nml, Warm, Dry. negative: Cyanosis Extremities: positive: Non-tender, Full ROM, Nml appearance Neurologic/Psychiatric: positive: Oriented x3, Motor nml, Sensation nml, Mood/affect nml. negative: Weakness, Sensory loss, Facial droop, Slurred/abnml speech, Depressed mood/affect Conclusion/Plan - Problem List (1) Hypotension Conclusion/Plan: Patient had hypotension 80/40 at ER initially, pt report he has lower degree fever and chill at home. Covid is negative. pt had hx of sepsis. pt had CSF preliminary culture and staining done which is negative for infection. CT of head, chest, abdomen and CXR were Unremarkable. Patient had a blood culture done in the ER, ER already started with vancomycin and Rocephin and IVF, will continue until r/o after blood culture. 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 he report his headache is behind of eyes, acute on chronic headache, hx of PTSD, it is likely migraine. we will have sumatriptan once for pt to see if control his headche. CT of head and CSF study are negative for acute process. (3) KIM (acute kidney injury) Conclusion/Plan: creatinine 1.4 today, usually his creatinine is at normal arrange, pt report loss of appetite and did not drink of enough fluid. pt report he had nausea and vomiting at home. IVF and lab monitor. avoid nephrotoxins (4) Hyponatremia Conclusion/Plan: sodium is 126 now. pt report he had N/V at home and did not drink enough fluid. it is likely hypovolumia and hyponatremia, IVF of NS and Na level lab monitor, and slowly raise Na level. (5) PTSD (post-traumatic stress disorder) Conclusion/Plan: pt seem stable, will resume home after his meds are confirmed - Lab Results Fish Bones: 08/16/21 13:40 08/16/21 13:40 Core Measures - Anticipated LOS I expect patient to be DC'd or transferred within 96 hours.: Yes - DVT/VTE - Prophylaxis VTE/DVT Device ordered at admit?: Yes VTE/DVT Prophylaxis med ordered at admit?: Yes
[2021-08-16] MEDS ORDERED: LORazepam 2 MG/ML VIAL IVP STA (17:55)
[2021-08-16] MEDS ORDERED: SODIUM CHLORIDE 0.9% 1,000 ML IV SCH ×2 (18:00)
[2021-08-16] MEDS ORDERED: cefTRIAXone 2 GM VIAL ONE (18:03)
[2021-08-16] MEDS ORDERED: SUMAtriptan 25 MG TABLET PO STA (18:16)
[2021-08-16 18:40] LABS: MUDS CUTOFF CONCENTRATIONS CUTOFF CONC BELOW:
[2021-08-16] MEDS: ACETAMINOPHEN 325 MG TABLET PO PRN (19:01)
[2021-08-16] MEDS: oxyCODONE 5 MG TABLET PO PRN (19:02)
[2021-08-16 19:05] LABS: AMPHETAMINE SCREEN,URINE NEGATIVE (NEGATIVE); BENZODIAZEPINES SCREEN, URINE NEGATIVE (NEGATIVE); COCAINE SCREEN URINE NEGATIVE (NEGATIVE); METHAMPHETAMINES SCREEN, URINE NEGATIVE (NEGATIVE); OPIATE SCREEN, URINE NEGATIVE (NEGATIVE); THC CANNABINOID SCREEN, URINE NEGATIVE (NEGATIVE); TRICYCLIC ANTIDEPRESSANT,URINE NEGATIVE (NEGATIVE)
[2021-08-16 19:06] LABS: BARBITURATE SCREEN,UR NEGATIVE (NEGATIVE); METHADONE SCREEN, URINE NEGATIVE (NEGATIVE); OXYCODONE SCREEN, URINE NEGATIVE (NEGATIVE); PROPOXYPHENE SCREEN, URINE NEGATIVE (NEGATIVE)
[2021-08-16] MEDS ORDERED: VANCOMYCIN 1 GM VIAL ONE (20:02)
[2021-08-16] MEDS ORDERED: HEPARIN 5,000 UNIT/ML VIAL SUBQ SCH (21:00)
[2021-08-16] MEDS ORDERED: SODIUM CHLORIDE 0.9% 500 ML IV ONE (21:54)
[2021-08-16] MEDS ORDERED: SODIUM CHLORIDE 0.9% 1,000 ML IV ONE (22:22)
[2021-08-16] MEDS ORDERED: SODIUM CHLORIDE FLUSH 0.9% 10 ML SYRINGE IVP PRN (22:35)
[2021-08-16 22:40] LABS: BASOPHILS % (AUTO) 0.3 %; EOSINOPHILS % (AUTO) 3.6 %; HCT - HEMATOCRIT 36.7 % (42.0-52.0); HGB - HEMOGLOBIN 12.6 g/dL (14.0-18.0); LYMPHOCYTES % (AUTO) 1.4 %; MEAN CORPUSCULAR HEMOGLOBIN 30.8 pg (27.0-31.0); MEAN CORPUSCULAR HGB CONC 34.3 g/dL (32.0-36.0); MEAN CORPUSCULAR VOLUME 89.7 fL (80.0-94.0); MEAN PLATELET VOLUME 10.1 fL (7.4-11.4); MONOCYTES % (AUTO) 2.7 %; NEUTROPHILS % (AUTO) 91.5 %; PLT - PLATELET COUNT 63 10^3/uL (130-450); RED BLOOD COUNT 4.09 10^6/uL (4.70-6.10); RED CELL DISTRIBUTION WIDTH 12.7 % (12.0-15.0); WHITE BLOOD COUNT 5.9 x10^3/uL (4.8-10.8)
[2021-08-16 22:43] LABS: ABNORMAL LYMPHS % (MANUAL) 0 %
--- NOTE | 2021-08-16 22:44 | PROVIDER PROGRESS NOTE ---
Director Student Union Note - Director Student Union Note Director Student Union Note: It was brought to my attention around 10:30 PM that the patient's blood pressure was in the 90s systolic. A 500 mL bolus of normal saline was ordered. While this was being administered the patient's blood pressure dropped into the 80s. Upon presenting to bedside he is toxic/ ill-appearing. He complains of a generalized malaise, joint aches and diarrhea. He had a temperature of 39.2 C and heart rate of 113. Urine output is low. Suspect sepsis/septic shock. Another 1 L bolus of normal saline was ordered. Patient had received Rocephin at time of admission. Rocephin was discontinued and Zosyn was ordered. The patient had just completed a dose of vancomycin. Repeat labs which included CBC, BMP, troponin and lactic acid was ordered. The patient was then transferred to the ICU. We will continue to monitor him closely.
[2021-08-16] MEDS ORDERED: PIPERACILLIN/TAZOBACTAM 3.375 GM in SODIUM CHLORIDE 0.9% MINIBAG 100 ML IV SCH (23:00)
[2021-08-16 23:09] LABS: BAND NEUTROPHILS % (MANUAL) 27 %; LYMPHOCYTES # (MANUAL) 0.2 10^3/uL (1.5-3.5); LYMPHOCYTES % (MANUAL) 1 %; METAMYELOCYTES % (MANUAL) 1 %; MONOCYTES # (MANUAL) 0.1 10^3/uL (0.0-1.0); NEUTROPHILS # (MANUAL) 5.6 10^3/uL (1.5-6.6); REACTIVE LYMPHS % (MANUAL) 2 %
[2021-08-16 23:10] LABS: DIFFERENTIAL COMMENT MANUAL DIFFERENTIAL; PLATELET ESTIMATE, MANUAL DECREASED (<130,000) (NORMAL); PLATELET MORPHOLOGY NORMAL APPEARANCE (NORMAL); RBC MORPHOLOGY (MULTIPLE) NORMAL APPEARANCE (NORMAL); WBC MORPHOLOGY (MULTIPLE) 2+ VACUOLATION (NORMAL)
[2021-08-16] MEDS: SODIUM CHLORIDE 0.9% 1,000 ML IV SCH (23:46)
[2021-08-17] MEDS: SODIUM CHLORIDE FLUSH 0.9% 10 ML SYRINGE IVP SCH ×6 (00:06→20:15)
[2021-08-17] MEDS: SODIUM CHLORIDE 0.9% 1,000 ML IV SCH ×2 (00:11→06:28)
[2021-08-17] MEDS: oxyCODONE 5 MG TABLET PO PRN ×5 (03:04→22:33)
[2021-08-17] MEDS ORDERED: SODIUM CHLORIDE 0.9% 500 ML IV ONE (03:48)
[2021-08-17] MEDS: SODIUM CHLORIDE 0.9% 500 ML IV PRN (04:13)
[2021-08-17 05:08] LABS: BASOPHILS % (AUTO) 0.5 %; EOSINOPHILS % (AUTO) 0.2 %; HCT - HEMATOCRIT 37.3 % (42.0-52.0); HGB - HEMOGLOBIN 12.8 g/dL (14.0-18.0); LYMPHOCYTES % (AUTO) 1.6 %; MEAN CORPUSCULAR HEMOGLOBIN 31.3 pg (27.0-31.0); MEAN CORPUSCULAR HGB CONC 34.3 g/dL (32.0-36.0); MEAN CORPUSCULAR VOLUME 91.2 fL (80.0-94.0); MEAN PLATELET VOLUME 10.6 fL (7.4-11.4); MONOCYTES % (AUTO) 3.6 %; NEUTROPHILS % (AUTO) 93.8 %; PLT - PLATELET COUNT 60 10^3/uL (130-450); RED BLOOD COUNT 4.09 10^6/uL (4.70-6.10); RED CELL DISTRIBUTION WIDTH 12.8 % (12.0-15.0); WHITE BLOOD COUNT 11.5 x10^3/uL (4.8-10.8)
[2021-08-17 05:09] LABS: ABNORMAL LYMPHS % (MANUAL) 0 %
[2021-08-17 05:29] LABS: BAND NEUTROPHILS % (MANUAL) 28 %; DIFFERENTIAL COMMENT MANUAL DIFFERENTIAL; LYMPHOCYTES # (MANUAL) 0.1 10^3/uL (1.5-3.5); LYMPHOCYTES % (MANUAL) 1 %; MONOCYTES # (MANUAL) 0.5 10^3/uL (0.0-1.0); NEUTROPHILS # (MANUAL) 10.9 10^3/uL (1.5-6.6); PLATELET ESTIMATE, MANUAL DECREASED (<130,000) (NORMAL); PLATELET MORPHOLOGY NORMAL APPEARANCE (NORMAL); RBC MORPHOLOGY (MULTIPLE) NORMAL APPEARANCE (NORMAL); WBC MORPHOLOGY (MULTIPLE) 1+ VACUOLATION (NORMAL)
[2021-08-17 05:31] LABS: CALCIUM 7.3 mg/dL (8.5-10.3); CREATININE 1.2 mg/dL (0.6-1.2); CRP - C-REACTIVE PROTEIN 21.8 mg/dL (0-1.0); PHOSPHORUS 3.5 mg/dL (2.5-4.6); POTASSIUM 3.6 mmol/L (3.5-5.0)
[2021-08-17] MEDS: PIPERACILLIN/TAZOBACTAM 3.375 GM in SODIUM CHLORIDE 0.9% MINIBAG 100 ML IV SCH ×3 (06:30→22:34)
[2021-08-17] MEDS ORDERED: PIPERACILLIN/TAZOBACTAM 3.375 GM in SODIUM CHLORIDE 0.9% MINIBAG 100 ML IV SCH (07:00)
[2021-08-17 07:35] LABS: VBG PH 7.343 (7.31-7.41)
--- NOTE | 2021-08-17 07:35 | PROVIDER PROGRESS NOTE ---
Subjective - Prog Note Date Prog Note Date: 08/17/21 - Subjective Subjective: He still feels pretty terrible overall. Still has an occasional headache neck pain, malaise this body aches. He was happy was able to eat a little bit this morning. Has no dyspnea or abdominal pain. He feels anxious. Current Medications - Current Medications Current Medications: Active Medications Acetaminophen (Acetaminophen 325 Mg Tablet) 650 mg PO Q4HR PRN PRN Reason: Pain 1 to 4 Last Admin: 08/16/21 19:01 Dose: 650 mg Documented by: Vancomycin HCl 1 gm/ Sodium (Chloride) 250 mls @ 167 mls/hr IV Q12H RADHA Piperacillin Sod/Tazobactam (Sod 3.375 gm/ Sodium Chloride) 100 mls @ 200 mls/hr IV ONCE RADHA Stop: 08/17/21 22:59 Last Infusion: 08/17/21 00:18 Dose: Infused Documented by: Piperacillin Sod/Tazobactam (Sod 3.375 gm/ Sodium Chloride) 100 mls @ 25 mls/hr IV Q8H RADHA Last Admin: 08/17/21 06:30 Dose: 25 mls/hr Documented by: Norepinephrine Bitartrate 8 mg (/ Dextrose) 250 mls @ 15 mls/hr IV .[id number] RADHA; Protocol Last Titration: 08/17/21 00:17 Dose: 12 mcg/min, 22.5 mls/hr Documented by: Sodium Chloride (Normal Saline 0.9%) 1,000 mls @ 175 mls/hr IV .[id number] RADHA Stop: 08/17/21 11:01 Last Admin: 08/17/21 06:28 Dose: 175 mls/hr Documented by: Sodium Chloride (Normal Saline 0.9%) 500 mls @ 20 mls/hr IV Q24H PRN PRN Reason: TKO RATE Last Admin: 08/17/21 04:13 Dose: 20 mls/hr Documented by: Ondansetron HCl (Ondansetron 4 Mg/2 Ml Vial) 4 mg IVP Q6HR PRN PRN Reason: Nausea / Vomiting Oxycodone HCl (Oxycodone 5 Mg Tablet) 5 mg PO Q4HR PRN PRN Reason: Pain 5 to 7 Last Admin: 08/17/21 03:04 Dose: 5 mg Documented by: Sodium Chloride (Sodium Chloride Flush 0.9% 10 Ml Syringe) 10 ml IVP PRN PRN PRN Reason: NEEDED PER PROVIDER ORDERS Sodium Chloride (Sodium Chloride Flush 0.9% 10 Ml Syringe) 10 ml IVP 0100,0900,1700 [facility] Last Admin: 08/17/21 00:06 Dose: 10 ml Documented by: Sodium Chloride (Sodium Chloride Flush 0.9% 10 Ml Syringe) 10 ml IVP 0100,0900,1700 [facility] Last Admin: 08/17/21 00:06 Dose: Not Given Documented by: Sodium Chloride (Sodium Chloride Flush 0.9% 10 Ml Syringe) 10 ml IVP PRN PRN PRN Reason: NEEDED PER PROVIDER ORDERS Objective - Vital Signs/Intake & Output Reviewed Vital Signs: Yes Vital Signs: Vital Signs Temp Pulse Pulse Resp BP BP Pulse Ox 08/17/21 07:00 61 11 L 99/66 96 08/17/21 06:00 64 12 86/59 L 95 08/17/21 05:40 57 L 15 08/17/21 05:35 65 16 08/17/21 05:25 77 21 08/17/21 05:20 64 10 L 08/17/21 05:15 64 11 L 08/17/21 05:10 66 11 L 08/17/21 05:05 66 11 L 08/17/21 05:01 68 12 08/17/21 05:00 67 67 12 92/64 92/64 96 08/17/21 04:59 68 11 L 08/17/21 04:55 67 12 08/17/21 04:50 67 13 08/17/21 04:45 68 13 08/17/21 04:40 65 11 L 08/17/21 04:35 67 12 08/17/21 04:30 69 12 08/17/21 04:25 61 12 08/17/21 04:20 41 L 14 08/17/21 04:15 69 14 08/17/21 04:10 67 13 08/17/21 04:05 70 16 08/17/21 04:01 66 16 08/17/21 04:00 36.9 C 70 68 15 91/63 91/63 93 08/17/21 03:59 69 16 08/17/21 03:55 69 16 08/17/21 03:50 71 16 08/17/21 03:45 71 15 08/17/21 03:40 69 16 Intake & Output: Intake & Output 08/14/21 08/15/21 08/16/21 08/17/21 23:59 23:59 23:59 23:59 Intake Total 2809.21 3477.979 Output Total 900 1100 Balance 1909.21 2377.979 - Objective General Appearance: positive: Alert, Mild distress Eyes Bilateral: positive: Normal inspection, PERRL, Conjunctivae nml ENT: positive: ENT inspection nml Neck: positive: Nml inspection Respiratory: positive: No respiratory distress. negative: Wheezes, Rales Cardiovascular: positive: Regular rate & rhythm, No murmur. negative: Tachycardia Abdomen: positive: Non-tender, No distention. negative: Tenderness Skin: positive: Warm, Dry Extremities: positive: No pedal edema Neurologic/Psychiatric: positive: Motor nml. negative: Disoriented to person, Disoriented to place - Lab Results Fish Bones: 08/17/21 04:22 08/17/21 04:22 Other Labs: Lab Results x24hrs 08/17/21 08/17/21 08/17/21 Range/Units 04:22 04:22 00:44 WBC 11.5 H (4.8-10.8) x10^3/uL RBC 4.09 L (4.70-6.10) 10^6/uL Hgb 12.8 L (14.0-18.0) g/dL Hct 37.3 L (42.0-52.0) % MCV 91.2 (80.0-94.0) fL MCH 31.3 H (27.0-31.0) pg MCHC 34.3 (32.0-36.0) g/dL RDW 12.8 (12.0-15.0) % Plt Count 60 L (130-450) 10^3/uL MPV 10.6 (7.4-11.4) fL Reticulocyte % (Auto) (0.5-2.3) % Neut # (Auto) Not Reportable Lymph # (Auto) Not Reportable [place] # (Auto) Not Reportable Eos # (Auto) Not Reportable Baso # (Auto) Not Reportable Absolute Nucleated RBC Not Reportable Total Counted 100 Band Neuts % (Manual) 28 H (0 - 10) % Reactive Lymphs % (Man) % Abnorm Lymph % (Manual) 0 % Metamyelocytes % ( - 0) % Nucleated RBC % Not Reportable Neutrophils # (Manual) 10.9 H (1.5-6.6) 10^3/uL Lymphocytes # (Manual) 0.1 L (1.5-3.5) 10^3/uL Monocytes # (Manual) 0.5 (0.0-1.0) 10^3/uL Eosinophils # (Manual) 0.0 (0-0.7) 10^3/uL Basophils # (Manual) 0.0 (0-0.1) 10^3/uL Differential Comment MANUAL DIFFERENTIAL Manual Slide Review WBC Morphology 1+ VACUOLATION (NORMAL) Platelet Estimate DECREASED (<130,000) (NORMAL) Platelet Morphology NORMAL APPEARANCE (NORMAL) RBC Morph Micro Appear NORMAL APPEARANCE (NORMAL) ESR (0-20) mm/Hr Absolute Retic (0.020-0.110) 10^6/uL PT (9.9-12.6) secs INR (0.8-1.2) APTT (24.9-33.3) secs Fibrinogen (220-496) mg/dL D-Dimer (200.0-255.0) ng/mL Sodium 130 L (135-145) mmol/L Potassium 3.6 (3.5-5.0) mmol/L Chloride 99 L (101-111) mmol/L Carbon Dioxide 22 (21-32) mmol/L Anion Gap 9.0 (6-13) BUN 19 (6-20) mg/dL Creatinine 1.2 (0.6-1.2) mg/dL Estimated GFR (MDRD) 63 L (>89) Glucose 155 H (70-100) mg/dL Lactic Acid (0.5-2.2) mmol/L Calcium 7.3 L (8.5-10.3) mg/dL Phosphorus 3.5 (2.5-4.6) mg/dL Magnesium 2.0 (1.7-2.8) mg/dL Total Bilirubin (0.2-1.0) mg/dL Direct Bilirubin (0.1-0.5) mg/dL Indirect Bilirubin mg/dL AST (10-42) IU/L ALT (10-60) IU/L Alkaline Phosphatase (42-121) IU/L Lactate Dehydrogenase (91-225) IU/L Total Creatine Kinase (22-269) IU/L Troponin I High Sens (2.3-19.7) ng/L C-Reactive Protein 21.8 H (0-1.0) mg/dL Total Protein (6.7-8.2) g/dL Albumin (3.2-5.5) g/dL Globulin (2.1-4.2) g/dL Albumin/Globulin Ratio (1.0-2.2) TSH (0.34-5.60) uIU/mL Cortisol ug/dL Urine Color Urine Clarity (CLEAR) Urine pH (5.0-7.5) PH Ur Specific [place] (1.002-1.030) Urine Protein (NEGATIVE) mg/dL Urine Glucose (UA) (NEGATIVE) mg/dL Urine Ketones (NEGATIVE) mg/dL Urine Occult Blood (NEGATIVE) Urine Nitrite (NEGATIVE) Urine Bilirubin (NEGATIVE) Urine Urobilinogen (NORMAL) E.U./dL Ur Leukocyte Esterase (NEGATIVE) Urine RBC (0-5) /HPF Urine WBC (0-3) /HPF Ur Squamous Epith Cells (<= Few) Urine Bacteria (None Seen) /HPF Urine Culture Comments CSF Color (COLORLESS) CSF Clarity (CLEAR) Xanthrochromic (ABSENT) CSF WBC (0-5) /mm^3 CSF RBC (0-1) /mm^3 CSF Cell Count Tube # CSF Glucose (45-70) mg/dL CSF Total Protein (15-45) mg/dL Nasal Adenovirus (PCR) Nasal B. parapertussis DNA (PCR) Nasal Coronavir 229E PCR Nasal Coronavir HKU1 PCR Nasal Coronavir NL63 PCR Nasal Coronavir OC43 PCR Nasal Enterovir/Rhinovir PCR Nasal Influenza B PCR Nasal Influenza A PCR Nasal Parainfluen 1 PCR Nasal Parainfluen 2 PCR Nasal Parainfluen 3 PCR Nasal Parainfluen 4 PCR Nasal RSV (PCR) Nasal Screen MRSA (PCR) NEGATIVE (NEGATIVE) Nasal B.pertussis DNA PCR Nasal C.pneumoniae (PCR) Lukas Human Metapneumo PCR Nasal M.pneumoniae (PCR) Nasal SARS-CoV-2 (PCR) Urine Opiates Screen (NEGATIVE) Ur Oxycodone Screen (NEGATIVE) Urine Methadone Screen (NEGATIVE) Ur Propoxyphene Screen (NEGATIVE) Ur Barbiturates Screen (NEGATIVE) Ur Tricyclics Screen (NEGATIVE) Ur Phencyclidine Scrn (NEGATIVE) Ur Amphetamine Screen (NEGATIVE) U Methamphetamines Scrn (NEGATIVE) U Benzodiazepines Scrn (NEGATIVE) Urine Cocaine Screen (NEGATIVE) U Cannabinoids Screen (NEGATIVE) Ethyl Alcohol mg/dL 08/16/21 08/16/21 08/16/21 Range/Units 22:30 22:30 22:13 WBC 5.9 (4.8-10.8) x10^3/uL RBC 4.09 L (4.70-6.10) 10^6/uL Hgb 12.6 L (14.0-18.0) g/dL Hct 36.7 L (42.0-52.0) % MCV 89.7 (80.0-94.0) fL MCH 30.8 (27.0-31.0) pg MCHC 34.3 (32.0-36.0) g/dL RDW 12.7 (12.0-15.0) % Plt Count 63 L (130-450) 10^3/uL MPV 10.1 (7.4-11.4) fL Reticulocyte % (Auto) (0.5-2.3) % Neut # (Auto) Not Reportable Lymph # (Auto) Not Reportable [place] # (Auto) Not Reportable Eos # (Auto) Not Reportable Baso # (Auto) Not Reportable Absolute Nucleated RBC Not Reportable Total Counted 100 Band Neuts % (Manual) 27 H (0 - 10) % Reactive Lymphs % (Man) 2 % Abnorm Lymph % (Manual) 0 % Metamyelocytes % 1 H ( - 0) % Nucleated RBC % Not Reportable Neutrophils # (Manual) 5.6 (1.5-6.6) 10^3/uL Lymphocytes # (Manual) 0.2 L (1.5-3.5) 10^3/uL Monocytes # (Manual) 0.1 (0.0-1.0) 10^3/uL Eosinophils # (Manual) 0.0 (0-0.7) 10^3/uL Basophils # (Manual) 0.0 (0-0.1) 10^3/uL Differential Comment MANUAL DIFFERENTIAL Manual Slide Review WBC Morphology 2+ VACUOLATION (NORMAL) Platelet Estimate DECREASED (<130,000) (NORMAL) Platelet Morphology NORMAL APPEARANCE (NORMAL) RBC Morph Micro Appear NORMAL APPEARANCE (NORMAL) ESR (0-20) mm/Hr Absolute Retic (0.020-0.110) 10^6/uL PT (9.9-12.6) secs INR (0.8-1.2) APTT (24.9-33.3) secs Fibrinogen (220-496) mg/dL D-Dimer (200.0-255.0) ng/mL Sodium 126 L (135-145) mmol/L Potassium (3.5-5.0) mmol/L Chloride (101-111) mmol/L Carbon Dioxide (21-32) mmol/L Anion Gap (6-13) BUN (6-20) mg/dL Creatinine (0.6-1.2) mg/dL Estimated GFR (MDRD) (>89) Glucose (70-100) mg/dL Lactic Acid 1.2 (0.5-2.2) mmol/L Calcium (8.5-10.3) mg/dL Phosphorus (2.5-4.6) mg/dL Magnesium (1.7-2.8) mg/dL Total Bilirubin (0.2-1.0) mg/dL Direct Bilirubin (0.1-0.5) mg/dL Indirect Bilirubin mg/dL AST (10-42) IU/L ALT (10-60) IU/L Alkaline Phosphatase (42-121) IU/L Lactate Dehydrogenase (91-225) IU/L Total Creatine Kinase (22-269) IU/L Troponin I High Sens (2.3-19.7) ng/L C-Reactive Protein (0-1.0) mg/dL Total Protein (6.7-8.2) g/dL Albumin (3.2-5.5) g/dL Globulin (2.1-4.2) g/dL Albumin/Globulin Ratio (1.0-2.2) TSH (0.34-5.60) uIU/mL Cortisol ug/dL Urine Color Urine Clarity (CLEAR) Urine pH (5.0-7.5) PH Ur Specific [place] (1.002-1.030) Urine Protein (NEGATIVE) mg/dL Urine Glucose (UA) (NEGATIVE) mg/dL Urine Ketones (NEGATIVE) mg/dL Urine Occult Blood (NEGATIVE) Urine Nitrite (NEGATIVE) Urine Bilirubin (NEGATIVE) Urine Urobilinogen (NORMAL) E.U./dL Ur Leukocyte Esterase (NEGATIVE) Urine RBC (0-5) /HPF Urine WBC (0-3) /HPF Ur Squamous Epith Cells (<= Few) Urine Bacteria (None Seen) /HPF Urine Culture Comments CSF Color (COLORLESS) CSF Clarity (CLEAR) Xanthrochromic (ABSENT) CSF WBC (0-5) /mm^3 CSF RBC (0-1) /mm^3 CSF Cell Count Tube # CSF Glucose (45-70) mg/dL CSF Total Protein (15-45) mg/dL Nasal Adenovirus (PCR) Nasal B. parapertussis DNA (PCR) Nasal Coronavir 229E PCR Nasal Coronavir HKU1 PCR Nasal Coronavir NL63 PCR Nasal Coronavir OC43 PCR Nasal Enterovir/Rhinovir PCR Nasal Influenza B PCR Nasal Influenza A PCR Nasal Parainfluen 1 PCR Nasal Parainfluen 2 PCR Nasal Parainfluen 3 PCR Nasal Parainfluen 4 PCR Nasal RSV (PCR) Nasal Screen MRSA (PCR) (NEGATIVE) Nasal B.pertussis DNA PCR Nasal C.pneumoniae (PCR) Lukas Human Metapneumo PCR Nasal M.pneumoniae (PCR) Nasal SARS-CoV-2 (PCR) Urine Opiates Screen (NEGATIVE) Ur Oxycodone Screen (NEGATIVE) Urine Methadone Screen (NEGATIVE) Ur Propoxyphene Screen (NEGATIVE) Ur Barbiturates Screen (NEGATIVE) Ur Tricyclics Screen (NEGATIVE) Ur Phencyclidine Scrn (NEGATIVE) Ur Amphetamine Screen (NEGATIVE) U Methamphetamines Scrn (NEGATIVE) U Benzodiazepines Scrn (NEGATIVE) Urine Cocaine Screen (NEGATIVE) U Cannabinoids Screen (NEGATIVE) Ethyl Alcohol mg/dL 08/16/21 08/16/21 08/16/21 Range/Units 20:30 16:07 15:58 WBC (4.8-10.8) x10^3/uL RBC (4.70-6.10) 10^6/uL Hgb (14.0-18.0) g/dL Hct (42.0-52.0) % MCV (80.0-94.0) fL MCH (27.0-31.0) pg MCHC (32.0-36.0) g/dL RDW (12.0-15.0) % Plt Count (130-450) 10^3/uL MPV (7.4-11.4) fL Reticulocyte % (Auto) (0.5-2.3) % Neut # (Auto) Lymph # (Auto) [place] # (Auto) Eos # (Auto) Baso # (Auto) Absolute Nucleated RBC Total Counted Band Neuts % (Manual) (0 - 10) % Reactive Lymphs % (Man) % Abnorm Lymph % (Manual) % Metamyelocytes % ( - 0) % Nucleated RBC % Neutrophils # (Manual) (1.5-6.6) 10^3/uL Lymphocytes # (Manual) (1.5-3.5) 10^3/uL Monocytes # (Manual) (0.0-1.0) 10^3/uL Eosinophils # (Manual) (0-0.7) 10^3/uL Basophils # (Manual) (0-0.1) 10^3/uL Differential Comment Manual Slide Review WBC Morphology (NORMAL) Platelet Estimate (NORMAL) Platelet Morphology (NORMAL) RBC Morph Micro Appear (NORMAL) ESR (0-20) mm/Hr Absolute Retic (0.020-0.110) 10^6/uL PT (9.9-12.6) secs INR (0.8-1.2) APTT (24.9-33.3) secs Fibrinogen (220-496) mg/dL D-Dimer (200.0-255.0) ng/mL Sodium (135-145) mmol/L Potassium (3.5-5.0) mmol/L Chloride (101-111) mmol/L Carbon Dioxide (21-32) mmol/L Anion Gap (6-13) BUN (6-20) mg/dL Creatinine (0.6-1.2) mg/dL Estimated GFR (MDRD) (>89) Glucose (70-100) mg/dL Lactic Acid (0.5-2.2) mmol/L Calcium (8.5-10.3) mg/dL Phosphorus (2.5-4.6) mg/dL Magnesium (1.7-2.8) mg/dL Total Bilirubin (0.2-1.0) mg/dL Direct Bilirubin (0.1-0.5) mg/dL Indirect Bilirubin mg/dL AST (10-42) IU/L ALT (10-60) IU/L Alkaline Phosphatase (42-121) IU/L Lactate Dehydrogenase (91-225) IU/L Total Creatine Kinase (22-269) IU/L Troponin I High Sens 11.2 (2.3-19.7) ng/L C-Reactive Protein (0-1.0) mg/dL Total Protein (6.7-8.2) g/dL Albumin (3.2-5.5) g/dL Globulin (2.1-4.2) g/dL Albumin/Globulin Ratio (1.0-2.2) TSH (0.34-5.60) uIU/mL Cortisol ug/dL Urine Color Urine Clarity (CLEAR) Urine pH (5.0-7.5) PH Ur Specific [place] (1.002-1.030) Urine Protein (NEGATIVE) mg/dL Urine Glucose (UA) (NEGATIVE) mg/dL Urine Ketones (NEGATIVE) mg/dL Urine Occult Blood (NEGATIVE) Urine Nitrite (NEGATIVE) Urine Bilirubin (NEGATIVE) Urine Urobilinogen (NORMAL) E.U./dL Ur Leukocyte Esterase (NEGATIVE) Urine RBC (0-5) /HPF Urine WBC (0-3) /HPF Ur Squamous Epith Cells (<= Few) Urine Bacteria (None Seen) /HPF Urine Culture Comments CSF Color COLORLESS (COLORLESS) CSF Clarity CLEAR (CLEAR) Xanthrochromic ABSENT (ABSENT) CSF WBC 1 (0-5) /mm^3 CSF RBC 3 H (0-1) /mm^3 CSF Cell Count Tube # CSF TUBE# 3 CSF Glucose 78 H (45-70) mg/dL CSF Total Protein 40 (15-45) mg/dL Nasal Adenovirus (PCR) Nasal B. parapertussis DNA (PCR) Nasal Coronavir 229E PCR Nasal Coronavir HKU1 PCR Nasal Coronavir NL63 PCR Nasal Coronavir OC43 PCR Nasal Enterovir/Rhinovir PCR Nasal Influenza B PCR Nasal Influenza A PCR Nasal Parainfluen 1 PCR Nasal Parainfluen 2 PCR Nasal Parainfluen 3 PCR Nasal Parainfluen 4 PCR Nasal RSV (PCR) Nasal Screen MRSA (PCR) (NEGATIVE) Nasal B.pertussis DNA PCR Nasal C.pneumoniae (PCR) Lukas Human Metapneumo PCR Nasal M.pneumoniae (PCR) Nasal SARS-CoV-2 (PCR) Urine Opiates Screen NEGATIVE (NEGATIVE) Ur Oxycodone Screen NEGATIVE (NEGATIVE) Urine Methadone Screen NEGATIVE (NEGATIVE) Ur Propoxyphene Screen NEGATIVE (NEGATIVE) Ur Barbiturates Screen NEGATIVE (NEGATIVE) Ur Tricyclics Screen NEGATIVE (NEGATIVE) Ur Phencyclidine Scrn NEGATIVE (NEGATIVE) Ur Amphetamine Screen NEGATIVE (NEGATIVE) U Methamphetamines Scrn NEGATIVE (NEGATIVE) U Benzodiazepines Scrn NEGATIVE (NEGATIVE) Urine Cocaine Screen NEGATIVE (NEGATIVE) U Cannabinoids Screen NEGATIVE (NEGATIVE) Ethyl Alcohol mg/dL 08/16/21 08/16/21 08/16/21 Range/Units 15:58 14:39 14:39 WBC (4.8-10.8) x10^3/uL RBC (4.70-6.10) 10^6/uL Hgb (14.0-18.0) g/dL Hct (42.0-52.0) % MCV (80.0-94.0) fL MCH (27.0-31.0) pg MCHC (32.0-36.0) g/dL RDW (12.0-15.0) % Plt Count (130-450) 10^3/uL MPV (7.4-11.4) fL Reticulocyte % (Auto) (0.5-2.3) % Neut # (Auto) Lymph # (Auto) [place] # (Auto) Eos # (Auto) Baso # (Auto) Absolute Nucleated RBC Total Counted Band Neuts % (Manual) (0 - 10) % Reactive Lymphs % (Man) % Abnorm Lymph % (Manual) % Metamyelocytes % ( - 0) % Nucleated RBC % Neutrophils # (Manual) (1.5-6.6) 10^3/uL Lymphocytes # (Manual) (1.5-3.5) 10^3/uL Monocytes # (Manual) (0.0-1.0) 10^3/uL Eosinophils # (Manual) (0-0.7) 10^3/uL Basophils # (Manual) (0-0.1) 10^3/uL Differential Comment Manual Slide Review WBC Morphology (NORMAL) Platelet Estimate (NORMAL) Platelet Morphology (NORMAL) RBC Morph Micro Appear (NORMAL) ESR (0-20) mm/Hr Absolute Retic (0.020-0.110) 10^6/uL PT (9.9-12.6) secs INR (0.8-1.2) APTT (24.9-33.3) secs Fibrinogen (220-496) mg/dL D-Dimer (200.0-255.0) ng/mL Sodium (135-145) mmol/L Potassium (3.5-5.0) mmol/L Chloride (101-111) mmol/L Carbon Dioxide (21-32) mmol/L Anion Gap (6-13) BUN (6-20) mg/dL Creatinine (0.6-1.2) mg/dL Estimated GFR (MDRD) (>89) Glucose (70-100) mg/dL Lactic Acid (0.5-2.2) mmol/L Calcium (8.5-10.3) mg/dL Phosphorus (2.5-4.6) mg/dL Magnesium (1.7-2.8) mg/dL Total Bilirubin 2.0 H (0.2-1.0) mg/dL Direct Bilirubin 0.4 (0.1-0.5) mg/dL Indirect Bilirubin 1.6 mg/dL AST (10-42) IU/L ALT (10-60) IU/L Alkaline Phosphatase (42-121) IU/L Lactate Dehydrogenase 171 (91-225) IU/L Total Creatine Kinase (22-269) IU/L Troponin I High Sens (2.3-19.7) ng/L C-Reactive Protein (0-1.0) mg/dL Total Protein (6.7-8.2) g/dL Albumin (3.2-5.5) g/dL Globulin (2.1-4.2) g/dL Albumin/Globulin Ratio (1.0-2.2) TSH (0.34-5.60) uIU/mL Cortisol ug/dL Urine Color YELLOW Urine Clarity HAZY (CLEAR) Urine pH 6.0 (5.0-7.5) PH Ur Specific [place] 1.020 (1.002-1.030) Urine Protein 30 H (NEGATIVE) mg/dL Urine Glucose (UA) NEGATIVE (NEGATIVE) mg/dL Urine Ketones NEGATIVE (NEGATIVE) mg/dL Urine Occult Blood MODERATE H (NEGATIVE) Urine Nitrite NEGATIVE (NEGATIVE) Urine Bilirubin NEGATIVE (NEGATIVE) Urine Urobilinogen 2 H (NORMAL) E.U./dL Ur Leukocyte Esterase NEGATIVE (NEGATIVE) Urine RBC 6-10 H (0-5) /HPF Urine WBC 0-3 (0-3) /HPF Ur Squamous Epith Cells NONE SEEN (<= Few) Urine Bacteria None Seen (None Seen) /HPF Urine Culture Comments NOT INDICATED CSF Color (COLORLESS) CSF Clarity (CLEAR) Xanthrochromic (ABSENT) CSF WBC (0-5) /mm^3 CSF RBC (0-1) /mm^3 CSF Cell Count Tube # CSF Glucose (45-70) mg/dL CSF Total Protein (15-45) mg/dL Nasal Adenovirus (PCR) Nasal B. parapertussis DNA (PCR) Nasal Coronavir 229E PCR Nasal Coronavir HKU1 PCR Nasal Coronavir NL63 PCR Nasal Coronavir OC43 PCR Nasal Enterovir/Rhinovir PCR Nasal Influenza B PCR Nasal Influenza A PCR Nasal Parainfluen 1 PCR Nasal Parainfluen 2 PCR Nasal Parainfluen 3 PCR Nasal Parainfluen 4 PCR Nasal RSV (PCR) Nasal Screen MRSA (PCR) (NEGATIVE) Nasal B.pertussis DNA PCR Nasal C.pneumoniae (PCR) Lukas Human Metapneumo PCR Nasal M.pneumoniae (PCR) Nasal SARS-CoV-2 (PCR) Urine Opiates Screen (NEGATIVE) Ur Oxycodone Screen (NEGATIVE) Urine Methadone Screen (NEGATIVE) Ur Propoxyphene Screen (NEGATIVE) Ur Barbiturates Screen (NEGATIVE) Ur Tricyclics Screen (NEGATIVE) Ur Phencyclidine Scrn (NEGATIVE) Ur Amphetamine Screen (NEGATIVE) U Methamphetamines Scrn (NEGATIVE) U Benzodiazepines Scrn (NEGATIVE) Urine Cocaine Screen (NEGATIVE) U Cannabinoids Screen (NEGATIVE) Ethyl Alcohol mg/dL 08/16/21 08/16/21 08/16/21 Range/Units 14:39 14:39 14:38 WBC (4.8-10.8) x10^3/uL RBC 4.27 L (4.70-6.10) 10^6/uL Hgb (14.0-18.0) g/dL Hct (42.0-52.0) % MCV (80.0-94.0) fL MCH (27.0-31.0) pg MCHC (32.0-36.0) g/dL RDW (12.0-15.0) % Plt Count (130-450) 10^3/uL MPV (7.4-11.4) fL Reticulocyte % (Auto) 0.73 (0.5-2.3) % Neut # (Auto) Lymph # (Auto) [place] # (Auto) Eos # (Auto) Baso # (Auto) Absolute Nucleated RBC Total Counted Band Neuts % (Manual) (0 - 10) % Reactive Lymphs % (Man) % Abnorm Lymph % (Manual) % Metamyelocytes % ( - 0) % Nucleated RBC % Neutrophils # (Manual) (1.5-6.6) 10^3/uL Lymphocytes # (Manual) (1.5-3.5) 10^3/uL Monocytes # (Manual) (0.0-1.0) 10^3/uL Eosinophils # (Manual) (0-0.7) 10^3/uL Basophils # (Manual) (0-0.1) 10^3/uL Differential Comment Manual Slide Review WBC Morphology (NORMAL) Platelet Estimate (NORMAL) Platelet Morphology (NORMAL) RBC Morph Micro Appear (NORMAL) ESR 20 (0-20) mm/Hr Absolute Retic 0.031 (0.020-0.110) 10^6/uL PT 16.4 H (9.9-12.6) secs INR 1.5 H (0.8-1.2) APTT 28.6 (24.9-33.3) secs Fibrinogen 510 H (220-496) mg/dL D-Dimer 817.5 H (200.0-255.0) ng/mL Sodium (135-145) mmol/L Potassium (3.5-5.0) mmol/L Chloride (101-111) mmol/L Carbon Dioxide (21-32) mmol/L Anion Gap (6-13) BUN (6-20) mg/dL Creatinine (0.6-1.2) mg/dL Estimated GFR (MDRD) (>89) Glucose (70-100) mg/dL Lactic Acid (0.5-2.2) mmol/L Calcium (8.5-10.3) mg/dL Phosphorus (2.5-4.6) mg/dL Magnesium (1.7-2.8) mg/dL Total Bilirubin (0.2-1.0) mg/dL Direct Bilirubin (0.1-0.5) mg/dL Indirect Bilirubin mg/dL AST (10-42) IU/L ALT (10-60) IU/L Alkaline Phosphatase (42-121) IU/L Lactate Dehydrogenase (91-225) IU/L Total Creatine Kinase (22-269) IU/L Troponin I High Sens (2.3-19.7) ng/L C-Reactive Protein (0-1.0) mg/dL Total Protein (6.7-8.2) g/dL Albumin (3.2-5.5) g/dL Globulin (2.1-4.2) g/dL Albumin/Globulin Ratio (1.0-2.2) TSH (0.34-5.60) uIU/mL Cortisol ug/dL Urine Color Urine Clarity (CLEAR) Urine pH (5.0-7.5) PH Ur Specific [place] (1.002-1.030) Urine Protein (NEGATIVE) mg/dL Urine Glucose (UA) (NEGATIVE) mg/dL Urine Ketones (NEGATIVE) mg/dL Urine Occult Blood (NEGATIVE) Urine Nitrite (NEGATIVE) Urine Bilirubin (NEGATIVE) Urine Urobilinogen (NORMAL) E.U./dL Ur Leukocyte Esterase (NEGATIVE) Urine RBC (0-5) /HPF Urine WBC (0-3) /HPF Ur Squamous Epith Cells (<= Few) Urine Bacteria (None Seen) /HPF Urine Culture Comments CSF Color (COLORLESS) CSF Clarity (CLEAR) Xanthrochromic (ABSENT) CSF WBC (0-5) /mm^3 CSF RBC (0-1) /mm^3 CSF Cell Count Tube # CSF Glucose (45-70) mg/dL CSF Total Protein (15-45) mg/dL Nasal Adenovirus (PCR) Nasal B. parapertussis DNA (PCR) Nasal Coronavir 229E PCR Nasal Coronavir HKU1 PCR Nasal Coronavir NL63 PCR Nasal Coronavir OC43 PCR Nasal Enterovir/Rhinovir PCR Nasal Influenza B PCR Nasal Influenza A PCR Nasal Parainfluen 1 PCR Nasal Parainfluen 2 PCR Nasal Parainfluen 3 PCR Nasal Parainfluen 4 PCR Nasal RSV (PCR) Nasal Screen MRSA (PCR) (NEGATIVE) Nasal B.pertussis DNA PCR Nasal C.pneumoniae (PCR) [place] Human Metapneumo PCR Nasal M.pneumoniae (PCR) Nasal SARS-CoV-2 (PCR) Urine Opiates Screen (NEGATIVE) Ur Oxycodone Screen (NEGATIVE) Urine Methadone Screen (NEGATIVE) Ur Propoxyphene Screen (NEGATIVE) Ur Barbiturates Screen (NEGATIVE) Ur Tricyclics Screen (NEGATIVE) Ur Phencyclidine Scrn (NEGATIVE) Ur Amphetamine Screen (NEGATIVE) U Methamphetamines Scrn (NEGATIVE) U Benzodiazepines Scrn (NEGATIVE) Urine Cocaine Screen (NEGATIVE) U Cannabinoids Screen (NEGATIVE) Ethyl Alcohol mg/dL 08/16/21 08/16/21 08/16/21 Range/Units 14:26 13:40 13:40 WBC (4.8-10.8) x10^3/uL RBC (4.70-6.10) 10^6/uL Hgb (14.0-18.0) g/dL Hct (42.0-52.0) % MCV (80.0-94.0) fL MCH (27.0-31.0) pg MCHC (32.0-36.0) g/dL RDW (12.0-15.0) % Plt Count (130-450) 10^3/uL MPV (7.4-11.4) fL Reticulocyte % (Auto) (0.5-2.3) % Neut # (Auto) Lymph # (Auto) [place] # (Auto) Eos # (Auto) Baso # (Auto) Absolute Nucleated RBC Total Counted Band Neuts % (Manual) (0 - 10) % Reactive Lymphs % (Man) % Abnorm Lymph % (Manual) % Metamyelocytes % ( - 0) % Nucleated RBC % Neutrophils # (Manual) (1.5-6.6) 10^3/uL Lymphocytes # (Manual) (1.5-3.5) 10^3/uL Monocytes # (Manual) (0.0-1.0) 10^3/uL Eosinophils # (Manual) (0-0.7) 10^3/uL Basophils # (Manual) (0-0.1) 10^3/uL Differential Comment Manual Slide Review WBC Morphology (NORMAL) Platelet Estimate (NORMAL) Platelet Morphology (NORMAL) RBC Morph Micro Appear (NORMAL) ESR (0-20) mm/Hr Absolute Retic (0.020-0.110) 10^6/uL PT (9.9-12.6) secs INR (0.8-1.2) APTT (24.9-33.3) secs Fibrinogen (220-496) mg/dL D-Dimer (200.0-255.0) ng/mL Sodium (135-145) mmol/L Potassium (3.5-5.0) mmol/L Chloride (101-111) mmol/L Carbon Dioxide (21-32) mmol/L Anion Gap (6-13) BUN (6-20) mg/dL Creatinine (0.6-1.2) mg/dL Estimated GFR (MDRD) (>89) Glucose (70-100) mg/dL Lactic Acid (0.5-2.2) mmol/L Calcium (8.5-10.3) mg/dL Phosphorus (2.5-4.6) mg/dL Magnesium (1.7-2.8) mg/dL Total Bilirubin (0.2-1.0) mg/dL Direct Bilirubin (0.1-0.5) mg/dL Indirect Bilirubin mg/dL AST (10-42) IU/L ALT (10-60) IU/L Alkaline Phosphatase (42-121) IU/L Lactate Dehydrogenase (91-225) IU/L Total Creatine Kinase 80 (22-269) IU/L Troponin I High Sens (2.3-19.7) ng/L C-Reactive Protein 21.3 H (0-1.0) mg/dL Total Protein (6.7-8.2) g/dL Albumin (3.2-5.5) g/dL Globulin (2.1-4.2) g/dL Albumin/Globulin Ratio (1.0-2.2) TSH 1.17 (0.34-5.60) uIU/mL Cortisol 28.1 ug/dL Urine Color Urine Clarity (CLEAR) Urine pH (5.0-7.5) PH Ur Specific [place] (1.002-1.030) Urine Protein (NEGATIVE) mg/dL Urine Glucose (UA) (NEGATIVE) mg/dL Urine Ketones (NEGATIVE) mg/dL Urine Occult Blood (NEGATIVE) Urine Nitrite (NEGATIVE) Urine Bilirubin (NEGATIVE) Urine Urobilinogen (NORMAL) E.U./dL Ur Leukocyte Esterase (NEGATIVE) Urine RBC (0-5) /HPF Urine WBC (0-3) /HPF Ur Squamous Epith Cells (<= Few) Urine Bacteria (None Seen) /HPF Urine Culture Comments CSF Color (COLORLESS) CSF Clarity (CLEAR) Xanthrochromic (ABSENT) CSF WBC (0-5) /mm^3 CSF RBC (0-1) /mm^3 CSF Cell Count Tube # CSF Glucose (45-70) mg/dL CSF Total Protein (15-45) mg/dL Nasal Adenovirus (PCR) Nasal B. parapertussis DNA (PCR) Nasal Coronavir 229E PCR Nasal Coronavir HKU1 PCR Nasal Coronavir NL63 PCR Nasal Coronavir OC43 PCR Nasal Enterovir/Rhinovir PCR Nasal Influenza B PCR Nasal Influenza A PCR Nasal Parainfluen 1 PCR Nasal Parainfluen 2 PCR Nasal Parainfluen 3 PCR Nasal Parainfluen 4 PCR Nasal RSV (PCR) Nasal Screen MRSA (PCR) (NEGATIVE) Nasal B.pertussis DNA PCR Nasal C.pneumoniae (PCR) Lukas Human Metapneumo PCR Nasal M.pneumoniae (PCR) Nasal SARS-CoV-2 (PCR) Urine Opiates Screen (NEGATIVE) Ur Oxycodone Screen (NEGATIVE) Urine Methadone Screen (NEGATIVE) Ur Propoxyphene Screen (NEGATIVE) Ur Barbiturates Screen (NEGATIVE) Ur Tricyclics Screen (NEGATIVE) Ur Phencyclidine Scrn (NEGATIVE) Ur Amphetamine Screen (NEGATIVE) U Methamphetamines Scrn (NEGATIVE) U Benzodiazepines Scrn (NEGATIVE) Urine Cocaine Screen (NEGATIVE) U Cannabinoids Screen (NEGATIVE) Ethyl Alcohol < 5.0 mg/dL 08/16/21 08/16/21 08/16/21 Range/Units 13:40 13:40 13:40 WBC 7.9 (4.8-10.8) x10^3/uL RBC 4.53 L (4.70-6.10) 10^6/uL Hgb 13.8 L (14.0-18.0) g/dL Hct 40.4 L (42.0-52.0) % MCV 89.2 (80.0-94.0) fL MCH 30.5 (27.0-31.0) pg MCHC 34.2 (32.0-36.0) g/dL RDW 12.8 (12.0-15.0) % Plt Count 84 L (130-450) 10^3/uL MPV 10.4 (7.4-11.4) fL Reticulocyte % (Auto) (0.5-2.3) % Neut # (Auto) Not Reportable Lymph # (Auto) Not Reportable [place] # (Auto) Not Reportable Eos # (Auto) Not Reportable Baso # (Auto) Not Reportable Absolute Nucleated RBC Not Reportable Total Counted 100 Band Neuts % (Manual) 0 (0 - 10) % Reactive Lymphs % (Man) % Abnorm Lymph % (Manual) 0 % Metamyelocytes % ( - 0) % Nucleated RBC % Not Reportable Neutrophils # (Manual) 7.0 H (1.5-6.6) 10^3/uL Lymphocytes # (Manual) 0.6 L (1.5-3.5) 10^3/uL Monocytes # (Manual) 0.2 (0.0-1.0) 10^3/uL Eosinophils # (Manual) 0.1 (0-0.7) 10^3/uL Basophils # (Manual) 0.0 (0-0.1) 10^3/uL Differential Comment MANUAL DIFFERENTIAL Manual Slide Review Indicated WBC Morphology NORMAL APPEARANCE (NORMAL) Platelet Estimate DECREASED (<130,000) (NORMAL) Platelet Morphology NORMAL SONU (NORMAL) RBC Morph Micro Appear NORMAL APPEARANCE (NORMAL) ESR (0-20) mm/Hr Absolute Retic (0.020-0.110) 10^6/uL PT (9.9-12.6) secs INR (0.8-1.2) APTT (24.9-33.3) secs Fibrinogen (220-496) mg/dL D-Dimer (200.0-255.0) ng/mL Sodium 126 L (135-145) mmol/L Potassium 3.2 L (3.5-5.0) mmol/L Chloride 91 L (101-111) mmol/L Carbon Dioxide 24 (21-32) mmol/L Anion Gap 11.0 (6-13) BUN 20 (6-20) mg/dL Creatinine 1.4 H (0.6-1.2) mg/dL Estimated GFR (MDRD) 53 L (>89) Glucose 145 H (70-100) mg/dL Lactic Acid 2.0 (0.5-2.2) mmol/L Calcium 8.6 (8.5-10.3) mg/dL Phosphorus (2.5-4.6) mg/dL Magnesium (1.7-2.8) mg/dL Total Bilirubin 2.1 H (0.2-1.0) mg/dL Direct Bilirubin (0.1-0.5) mg/dL Indirect Bilirubin mg/dL AST 58 H (10-42) IU/L ALT 54 (10-60) IU/L Alkaline Phosphatase 58 (42-121) IU/L Lactate Dehydrogenase (91-225) IU/L Total Creatine Kinase (22-269) IU/L Troponin I High Sens (2.3-19.7) ng/L C-Reactive Protein (0-1.0) mg/dL Total Protein 6.3 L (6.7-8.2) g/dL Albumin 3.4 (3.2-5.5) g/dL Globulin 2.9 (2.1-4.2) g/dL Albumin/Globulin Ratio 1.2 (1.0-2.2) TSH (0.34-5.60) uIU/mL Cortisol ug/dL Urine Color Urine Clarity (CLEAR) Urine pH (5.0-7.5) PH Ur Specific [place] (1.002-1.030) Urine Protein (NEGATIVE) mg/dL Urine Glucose (UA) (NEGATIVE) mg/dL Urine Ketones (NEGATIVE) mg/dL Urine Occult Blood (NEGATIVE) Urine Nitrite (NEGATIVE) Urine Bilirubin (NEGATIVE) Urine Urobilinogen (NORMAL) E.U./dL Ur Leukocyte Esterase (NEGATIVE) Urine RBC (0-5) /HPF Urine WBC (0-3) /HPF Ur Squamous Epith Cells (<= Few) Urine Bacteria (None Seen) /HPF Urine Culture Comments CSF Color (COLORLESS) CSF Clarity (CLEAR) Xanthrochromic (ABSENT) CSF WBC (0-5) /mm^3 CSF RBC (0-1) /mm^3 CSF Cell Count Tube # CSF Glucose (45-70) mg/dL CSF Total Protein (15-45) mg/dL Nasal Adenovirus (PCR) Nasal B. parapertussis DNA (PCR) Nasal Coronavir 229E PCR Nasal Coronavir HKU1 PCR Nasal Coronavir NL63 PCR Nasal Coronavir OC43 PCR Nasal Enterovir/Rhinovir PCR Nasal Influenza B PCR Nasal Influenza A PCR Nasal Parainfluen 1 PCR Nasal Parainfluen 2 PCR Nasal Parainfluen 3 PCR Nasal Parainfluen 4 PCR Nasal RSV (PCR) Nasal Screen MRSA (PCR) (NEGATIVE) Nasal B.pertussis DNA PCR Nasal C.pneumoniae (PCR) Lukas Human Metapneumo PCR Nasal M.pneumoniae (PCR) Nasal SARS-CoV-2 (PCR) Urine Opiates Screen (NEGATIVE) Ur Oxycodone Screen (NEGATIVE) Urine Methadone Screen (NEGATIVE) Ur Propoxyphene Screen (NEGATIVE) Ur Barbiturates Screen (NEGATIVE) Ur Tricyclics Screen (NEGATIVE) Ur Phencyclidine Scrn (NEGATIVE) Ur Amphetamine Screen (NEGATIVE) U Methamphetamines Scrn (NEGATIVE) U Benzodiazepines Scrn (NEGATIVE) Urine Cocaine Screen (NEGATIVE) U Cannabinoids Screen (NEGATIVE) Ethyl Alcohol mg/dL 08/16/21 Range/Units 13:28 WBC (4.8-10.8) x10^3/uL RBC (4.70-6.10) 10^6/uL Hgb (14.0-18.0) g/dL Hct (42.0-52.0) % MCV (80.0-94.0) fL MCH (27.0-31.0) pg MCHC (32.0-36.0) g/dL RDW (12.0-15.0) % Plt Count (130-450) 10^3/uL MPV (7.4-11.4) fL Reticulocyte % (Auto) (0.5-2.3) % Neut # (Auto) Lymph # (Auto) [place] # (Auto) Eos # (Auto) Baso # (Auto) Absolute Nucleated RBC Total Counted Band Neuts % (Manual) (0 - 10) % Reactive Lymphs % (Man) % Abnorm Lymph % (Manual) % Metamyelocytes % ( - 0) % Nucleated RBC % Neutrophils # (Manual) (1.5-6.6) 10^3/uL Lymphocytes # (Manual) (1.5-3.5) 10^3/uL Monocytes # (Manual) (0.0-1.0) 10^3/uL Eosinophils # (Manual) (0-0.7) 10^3/uL Basophils # (Manual) (0-0.1) 10^3/uL Differential Comment Manual Slide Review WBC Morphology (NORMAL) Platelet Estimate (NORMAL) Platelet Morphology (NORMAL) RBC Morph Micro Appear (NORMAL) ESR (0-20) mm/Hr Absolute Retic (0.020-0.110) 10^6/uL PT (9.9-12.6) secs INR (0.8-1.2) APTT (24.9-33.3) secs Fibrinogen (220-496) mg/dL D-Dimer (200.0-255.0) ng/mL Sodium (135-145) mmol/L Potassium (3.5-5.0) mmol/L Chloride (101-111) mmol/L Carbon Dioxide (21-32) mmol/L Anion Gap (6-13) BUN (6-20) mg/dL Creatinine (0.6-1.2) mg/dL Estimated GFR (MDRD) (>89) Glucose (70-100) mg/dL Lactic Acid (0.5-2.2) mmol/L Calcium (8.5-10.3) mg/dL Phosphorus (2.5-4.6) mg/dL Magnesium (1.7-2.8) mg/dL Total Bilirubin (0.2-1.0) mg/dL Direct Bilirubin (0.1-0.5) mg/dL Indirect Bilirubin mg/dL AST (10-42) IU/L ALT (10-60) IU/L Alkaline Phosphatase (42-121) IU/L Lactate Dehydrogenase (91-225) IU/L Total Creatine Kinase (22-269) IU/L Troponin I High Sens (2.3-19.7) ng/L C-Reactive Protein (0-1.0) mg/dL Total Protein (6.7-8.2) g/dL Albumin (3.2-5.5) g/dL Globulin (2.1-4.2) g/dL Albumin/Globulin Ratio (1.0-2.2) TSH (0.34-5.60) uIU/mL Cortisol ug/dL Urine Color Urine Clarity (CLEAR) Urine pH (5.0-7.5) PH Ur Specific [place] (1.002-1.030) Urine Protein (NEGATIVE) mg/dL Urine Glucose (UA) (NEGATIVE) mg/dL Urine Ketones (NEGATIVE) mg/dL Urine Occult Blood (NEGATIVE) Urine Nitrite (NEGATIVE) Urine Bilirubin (NEGATIVE) Urine Urobilinogen (NORMAL) E.U./dL Ur Leukocyte Esterase (NEGATIVE) Urine RBC (0-5) /HPF Urine WBC (0-3) /HPF Ur Squamous Epith Cells (<= Few) Urine Bacteria (None Seen) /HPF Urine Culture Comments CSF Color (COLORLESS) CSF Clarity (CLEAR) Xanthrochromic (ABSENT) CSF WBC (0-5) /mm^3 CSF RBC (0-1) /mm^3 CSF Cell Count Tube # CSF Glucose (45-70) mg/dL CSF Total Protein (15-45) mg/dL Nasal Adenovirus (PCR) NOT DETECTED Nasal B. parapertussis DNA (PCR) NOT DETECTED Nasal Coronavir 229E PCR NOT DETECTED Nasal Coronavir HKU1 PCR NOT DETECTED Nasal Coronavir NL63 PCR NOT DETECTED Nasal Coronavir OC43 PCR NOT DETECTED Nasal Enterovir/Rhinovir PCR NOT DETECTED Nasal Influenza B PCR NOT DETECTED Nasal Influenza A PCR NOT DETECTED Nasal Parainfluen 1 PCR NOT DETECTED Nasal Parainfluen 2 PCR NOT DETECTED Nasal Parainfluen 3 PCR NOT DETECTED Nasal Parainfluen 4 PCR NOT DETECTED Nasal RSV (PCR) NOT DETECTED Nasal Screen MRSA (PCR) (NEGATIVE) Nasal B.pertussis DNA PCR NOT DETECTED Nasal C.pneumoniae (PCR) NOT DETECTED Lukas Human Metapneumo PCR NOT DETECTED Nasal M.pneumoniae (PCR) NOT DETECTED Nasal SARS-CoV-2 (PCR) NOT DETECTED Urine Opiates Screen (NEGATIVE) Ur Oxycodone Screen (NEGATIVE) Urine Methadone Screen (NEGATIVE) Ur Propoxyphene Screen (NEGATIVE) Ur Barbiturates Screen (NEGATIVE) Ur Tricyclics Screen (NEGATIVE) Ur Phencyclidine Scrn (NEGATIVE) Ur Amphetamine Screen (NEGATIVE) U Methamphetamines Scrn (NEGATIVE) U Benzodiazepines Scrn (NEGATIVE) Urine Cocaine Screen (NEGATIVE) U Cannabinoids Screen (NEGATIVE) Ethyl Alcohol mg/dL Sepsis Event Note (H) - Evaluation Current Stage of Sepsis: Septic shock Possible source of Sepsis: positive: Unknown - Sepsis Criteria Sepsis Criteria: WBC count greater than 10% bands, SBP drop more than 40mHg, SBP less than 90 mmHg, Renal: urine output less than 0.5ml/kg/hr for 2 hours or creatinine gr, Hematologic: platelets < 100,000; INR > 1.5, or a PTT>60 seconds Assessment/Plan - Problem List (1) Septic shock Impression: The concern is for septic shock although there has not been an obvious source of infection. He is hypotensive requiring norepinephrine and his white count is increased today but more significantly, he has nearly 30% bands. There has been no obvious source of infection. Lumbar puncture was unremarkable. Imaging also revealed no obvious source of infection. His did tell the emergency department physician last night he has had episodes of bacteremia in the past of unclear etiology so this is most definitely the concern at this time. We will keep him on vancomycin and Zosyn IV. Continue norepinephrine for goal mean arterial pressure greater than 65 mmHg. Continue with IV hydration. Follow-up blood cultures. Given his hypotension, he'll be made inpatient status. (2) KIM (acute kidney injury) Impression: This is likely prerenal in nature. His creatinine was 1.4 on admission has improved to 1.2 today. Likely due to decreased oral intake and dehydration. Continue IV hydration. (3) Hyponatremia Impression: This is likely hypovolemic hyponatremia due to decreased oral intake. His sodium was 126 on admission and has improved to 130. Continue IV fluids. Monitor BMP. (4) Thrombocytopenia Impression: His blood count continues to decrease and is now in the 60s. His LDH is normal so we doubt there is hemolysis or TTP. I suspect his thrombocytopenia, which is acute in nature given it was normal just 1 week ago, is likely due to the underlying suspected sepsis and infection. We will use SCDs for DVT prophylaxis and hold off on heparin/Lovenox. Daily CBC. (5) Headache Impression: This is likely secondary to his fevers and underlying suspected infection. LP did not reveal a source of infection and his CT was unremarkable. We will continue with Tylenol as needed as we attempt to identify the source of the suspected infection. (6) PTSD (post-traumatic stress disorder) Impression: He is a little anxious right now and we will start him on hydroxyzine as needed.
[2021-08-17 07:36] LABS: CALCIUM, IONIZED 1.07 mmol/L (1.15-1.33)
[2021-08-17] MEDS ORDERED: POTASSIUM CHLORIDE 20 MEQ TABLET PO ONE (07:40)
[2021-08-17] MEDS ORDERED: cefTRIAXone 1 GM in SODIUM CHLORIDE 0.9% MINIBAG 100 ML IV SCH (09:00)
[2021-08-17] MEDS ORDERED: cefTRIAXone 1 GM VIAL IVP SCH (09:00)
[2021-08-17] MEDS: VANCOMYCIN INJ 1 GM in SODIUM CHLORIDE 0.9% 250 ML IV SCH ×2 (09:12→20:14)
--- NOTE | 2021-08-17 09:16 | PHARMACY PROGRESS NOTE ---
- Best Possible Medication History Admit Date and Time: 08/16/21 1721 Processed by: Pharmacy Medication History completed: Yes Patient Interview: Pt unable to participate Secondary Source(s): Physician records, Insurance records As the person ultimately responsible for medication therapy, providers are able to order a medication from an existing home medication list in [facility] via the "Reconcile Routine" prior to Confirmation of that medication by customer support executive. Such practice is discouraged except when the physician, in their clinical judgment, deems that a medical need exists for a medication without regard to previous use.
[2021-08-17] MEDS: hydrOXYzine PAMOATE 25 MG CAPSULE PO PRN ×3 (10:34→22:33)
--- NOTE | 2021-08-17 12:49 | XRAY Report ---
PROCEDURE: Chest for Line Placement INDICATIONS: line placed TECHNIQUE: One view of the chest was acquired. COMPARISON: CT angiogram chest 08/16/2021 FINDINGS: Surgical changes and devices: Right IJ central line terminates in the mid SVC. Lungs and pleura: No pleural effusions or pneumothorax. Lungs are clear. Mediastinum: Mediastinal contours appear normal. Heart size is normal. Bones and chest wall: No suspicious bony lesions. Overlying soft tissues appear unremarkable. IMPRESSION: Appropriate position of right IJ central catheter. Reviewed by: Gabriele Starks MD on 08/17/2021 12:48 PM PST Approved by: Gabriele Starks MD on 08/17/2021 12:48 PM PST Station ID: [id number]
--- NOTE | 2021-08-17 13:19 | ANESTHESIA PROCEDURE NOTE ---
Anesth Central Line Template - Central Line Central Line Preparation: Consent Obtained, Time out completed, Ultrasound used, Sterile prep and drape Central line location: Right IJ Central line type: Triple lumen Central line catheter tip site resides: Superior vena cava (SVC) Central line aftercare: Chlorhexidine disc placed, Secured (suturex1), Placement confirmed, No pneumothorax, No complications, Bundle checklist complete, Pt tolerated well
[2021-08-17] MEDS: CALCIUM CARBONATE CHEW 500 MG TABLET PO SCH ×2 (17:25→20:14)
[2021-08-17] MEDS: ACETAMINOPHEN 325 MG TABLET PO PRN ×2 (17:29→22:33)
[2021-08-17] MEDS ORDERED: VANCOMYCIN IV SCH (20:00)
[2021-08-17] MEDS ORDERED: SODIUM CHLORIDE 0.9% IV SCH (20:00)
[2021-08-18] MEDS: SODIUM CHLORIDE FLUSH 0.9% 10 ML SYRINGE IVP SCH ×8 (00:08→23:04)
[2021-08-18] MEDS: oxyCODONE 5 MG TABLET PO PRN ×5 (03:23→20:39)
[2021-08-18] MEDS: ACETAMINOPHEN 325 MG TABLET PO PRN ×4 (03:23→20:39)
[2021-08-18 05:14] LABS: CALCIUM, IONIZED 1.13 mmol/L (1.15-1.33); VBG PH 7.408 (7.31-7.41)
[2021-08-18 05:16] LABS: BASOPHILS % (AUTO) 0.6 %; HCT - HEMATOCRIT 36.5 % (42.0-52.0); HGB - HEMOGLOBIN 12.8 g/dL (14.0-18.0); LYMPHOCYTES % (AUTO) 14.1 %; MEAN CORPUSCULAR HEMOGLOBIN 31.4 pg (27.0-31.0); MEAN CORPUSCULAR HGB CONC 35.1 g/dL (32.0-36.0); MEAN CORPUSCULAR VOLUME 89.7 fL (80.0-94.0); MONOCYTES % (AUTO) 7.7 %; NEUTROPHILS % (AUTO) 76.2 %; PLT - PLATELET COUNT 61 10^3/uL (130-450); RED BLOOD COUNT 4.07 10^6/uL (4.70-6.10); RED CELL DISTRIBUTION WIDTH 12.9 % (12.0-15.0)
[2021-08-18 05:17] LABS: ABNORMAL LYMPHS % (MANUAL) 0 %
[2021-08-18] MEDS: PIPERACILLIN/TAZOBACTAM 3.375 GM in SODIUM CHLORIDE 0.9% MINIBAG 100 ML IV SCH ×3 (05:20→22:22)
[2021-08-18 05:22] LABS: CALCIUM 7.8 mg/dL (8.5-10.3); CREATININE 0.9 mg/dL (0.6-1.2); CRP - C-REACTIVE PROTEIN 18.8 mg/dL (0-1.0); MAGNESIUM 1.8 mg/dL (1.7-2.8); PHOSPHORUS 1.4 mg/dL (2.5-4.6)
[2021-08-18 05:38] LABS: BAND NEUTROPHILS % (MANUAL) 25 %; DIFFERENTIAL COMMENT MANUAL DIFFERENTIAL; EOSINOPHILS # (MANUAL) 0.1 10^3/uL (0-0.7); LYMPHOCYTES # (MANUAL) 1.1 10^3/uL (1.5-3.5); LYMPHOCYTES % (MANUAL) 15 %; METAMYELOCYTES % (MANUAL) 1 %; MONOCYTES # (MANUAL) 0.4 10^3/uL (0.0-1.0); NEUTROPHILS # (MANUAL) 5.5 10^3/uL (1.5-6.6); PLATELET ESTIMATE, MANUAL DECREASED (<130,000) (NORMAL); PLATELET MORPHOLOGY NORMAL APPEARANCE (NORMAL); RBC MORPHOLOGY (MULTIPLE) NORMAL APPEARANCE (NORMAL); WBC MORPHOLOGY (MULTIPLE) 1+ VACUOLATION (NORMAL)
[2021-08-18] MEDS ORDERED: MAGNESIUM SULFATE 2 GRAM 2 GM/50 ML BAG IV ONE (06:07)
[2021-08-18] MEDS: hydrOXYzine PAMOATE 25 MG CAPSULE PO PRN ×3 (06:40→22:22)
[2021-08-18] MEDS ORDERED: POTASSIUM CHLOR 20 MEQ/100 ML 20 MEQ/100 ML BAG IV SCH (07:00)
[2021-08-18] MEDS ORDERED: POTASSIUM PHOSPHATE 21 MMOL in SODIUM CHLORIDE 0.9% 250 ML IV ONE (08:00)
[2021-08-18] MEDS: VANCOMYCIN INJ 1 GM in SODIUM CHLORIDE 0.9% 250 ML IV SCH ×2 (08:10→20:39)
[2021-08-18] MEDS ORDERED: LACTATED RINGERS 1,000 ML IV ONE (08:23)
[2021-08-18 08:27] LABS: ALBUMIN 2.4 g/dL (3.2-5.5); BILIRUBIN,DIRECT 0.5 mg/dL (0.1-0.5); BILIRUBIN,TOTAL 1.3 mg/dL (0.2-1.0); TOTAL PROTEIN 4.8 g/dL (6.7-8.2)
--- NOTE | 2021-08-18 08:39 | PROVIDER PROGRESS NOTE ---
Subjective - Prog Note Date Prog Note Date: 08/18/21 - Subjective Subjective: He still feels quite fatigued and still has a headache. Still complains of neck pain. No chest pain or dyspnea. He just feels uncomfortable and is just so tired. He denies any recent animal or insect bites. He is okay with being tested for HIV. Current Medications - Current Medications Current Medications: Active Medications Acetaminophen (Acetaminophen 325 Mg Tablet) 650 mg PO Q4HR PRN PRN Reason: Pain 1 to 4 Last Admin: 08/18/21 08:08 Dose: 650 mg Documented by: Hydroxyzine Pamoate (Hydroxyzine Pamoate 25 Mg Capsule) 25 mg PO Q6HR PRN PRN Reason: Anxiety Last Admin: 08/18/21 06:40 Dose: 25 mg Documented by: Vancomycin HCl 1 gm/ Sodium (Chloride) 250 mls @ 167 mls/hr IV Q12H [facility] Last Admin: 08/18/21 08:10 Dose: 167 mls/hr Documented by: Piperacillin Sod/Tazobactam (Sod 3.375 gm/ Sodium Chloride) 100 mls @ 25 mls/hr IV Q8H [facility] Last Admin: 08/18/21 05:20 Dose: 25 mls/hr Documented by: Norepinephrine Bitartrate 8 mg (/ Dextrose) 250 mls @ 15 mls/hr IV .[id number] [facility]; Protocol Last Titration: 08/17/21 23:07 Dose: 14 mcg/min, 26.25 mls/hr Documented by: Sodium Chloride (Normal Saline 0.9%) 500 mls @ 20 mls/hr IV Q24H PRN PRN Reason: TKO RATE Last Infusion: 08/18/21 06:36 Dose: Infused Documented by: Potassium Phosphate 21 mmol/ (Sodium Chloride) 257 mls @ 64 mls/hr IV ONCE ONE; Protocol Stop: 08/18/21 12:00 Lactated Ringer's (Lr) 1,000 mls @ 999 mls/hr IV ONCE ONE Stop: 08/18/21 09:23 Ondansetron HCl (Ondansetron 4 Mg/2 Ml Vial) 4 mg IVP Q6HR PRN PRN Reason: Nausea / Vomiting Oxycodone HCl (Oxycodone 5 Mg Tablet) 5 mg PO Q4HR PRN PRN Reason: Pain 5 to 7 Last Admin: 08/18/21 08:08 Dose: 5 mg Documented by: Sodium Chloride (Sodium Chloride Flush 0.9% 10 Ml Syringe) 10 ml IVP PRN PRN PRN Reason: NEEDED PER PROVIDER ORDERS Sodium Chloride (Sodium Chloride Flush 0.9% 10 Ml Syringe) 10 ml IVP 0100,0900,1700 [facility] Last Admin: 08/18/21 00:08 Dose: 10 ml Documented by: Sodium Chloride (Sodium Chloride Flush 0.9% 10 Ml Syringe) 10 ml IVP 0100,0900,1700 [facility] Last Admin: 08/18/21 00:08 Dose: 10 ml Documented by: Sodium Chloride (Sodium Chloride Flush 0.9% 10 Ml Syringe) 10 ml IVP PRN PRN PRN Reason: NEEDED PER PROVIDER ORDERS DULoxetine [Cymbalta] 30 mg PO DAILY 08/17/21 Ondansetron Odt [Zofran Odt] 4 mg TL Q6H PRN 08/17/21 Sumatriptan Succinate [Imitrex] 100 mg PO DAILY PRN 08/17/21 Trazodone HCl 100 mg PO QPM PRN 08/17/21 Objective - Vital Signs/Intake & Output Reviewed Vital Signs: Yes Vital Signs: Vital Signs Temp Pulse Resp BP Pulse Ox 08/18/21 08:00 36.6 C 51 L 14 94/60 97 08/18/21 07:00 48 L 12 106/75 96 08/18/21 06:00 48 L 11 L 102/58 L 95 08/18/21 05:00 49 L 11 L 117/65 94 Intake & Output: Intake & Output 08/15/21 08/16/21 08/17/21 08/18/21 23:59 23:59 23:59 23:59 Intake Total 2809.21 6878.292 600 Output Total 900 1600 500 Balance 1909.21 5278.292 100 - Objective General Appearance: positive: Alert, Mild distress Eyes Bilateral: positive: Normal inspection, PERRL, Conjunctivae nml ENT: positive: ENT inspection nml Neck: positive: Nml inspection Respiratory: positive: No respiratory distress. negative: Wheezes, Rales Cardiovascular: positive: Regular rate & rhythm, No murmur. negative: T achycardia Abdomen: positive: Non-tender, No distention. negative: Tenderness Skin: positive: Warm, Dry Extremities: positive: No pedal edema Neurologic/Psychiatric: positive: Motor nml. negative: Disoriented to person, Disoriented to place, Disoriented to time - Lab Results Fish Bones: 08/18/21 04:45 08/18/21 04:45 Other Labs: Lab Results x24hrs 08/18/21 08/18/21 08/18/21 Range/Units 04:45 04:45 04:45 WBC (4.8-10.8) x10^3/uL RBC (4.70-6.10) 10^6/uL Hgb (14.0-18.0) g/dL Hct (42.0-52.0) % MCV (80.0-94.0) fL MCH (27.0-31.0) pg MCHC (32.0-36.0) g/dL RDW (12.0-15.0) % Plt Count (130-450) 10^3/uL MPV (7.4-11.4) fL Neut # (Auto) Lymph # (Auto) White # (Auto) Eos # (Auto) Baso # (Auto) Absolute Nucleated RBC Total Counted Band Neuts % (Manual) (0 - 10) % Abnorm Lymph % (Manual) % Metamyelocytes % ( - 0) % Nucleated RBC % Neutrophils # (Manual) (1.5-6.6) 10^3/uL Lymphocytes # (Manual) (1.5-3.5) 10^3/uL Monocytes # (Manual) (0.0-1.0) 10^3/uL Eosinophils # (Manual) (0-0.7) 10^3/uL Basophils # (Manual) (0-0.1) 10^3/uL Differential Comment WBC Morphology (NORMAL) Platelet Estimate (NORMAL) Platelet Morphology (NORMAL) RBC Morph Micro Appear (NORMAL) VBG pH 7.408 (7.31-7.41) Ionized Calcium 1.13 L (1.15-1.33) mmol/L Sodium 135 (135-145) mmol/L Potassium 3.0 L (3.5-5.0) mmol/L Chloride 101 (101-111) mmol/L Carbon Dioxide 27 (21-32) mmol/L Anion Gap 7.0 (6-13) BUN 12 (6-20) mg/dL Creatinine 0.9 (0.6-1.2) mg/dL Estimated GFR (MDRD) 88 L (>89) Glucose 150 H (70-100) mg/dL Calcium 7.8 L (8.5-10.3) mg/dL Phosphorus 1.4 L (2.5-4.6) mg/dL Magnesium 1.8 (1.7-2.8) mg/dL Total Bilirubin 1.3 H (0.2-1.0) mg/dL Direct Bilirubin 0.5 (0.1-0.5) mg/dL AST 63 H (10-42) IU/L ALT 51 (10-60) IU/L Alkaline Phosphatase 97 (42-121) IU/L C-Reactive Protein 18.8 H (0-1.0) mg/dL Total Protein 4.8 L (6.7-8.2) g/dL Albumin 2.4 L (3.2-5.5) g/dL Globulin 2.4 (2.1-4.2) g/dL 08/18/21 Range/Units 04:45 WBC 7.0 (4.8-10.8) x10^3/uL RBC 4.07 L (4.70-6.10) 10^6/uL Hgb 12.8 L (14.0-18.0) g/dL Hct 36.5 L (42.0-52.0) % MCV 89.7 (80.0-94.0) fL MCH 31.4 H (27.0-31.0) pg MCHC 35.1 (32.0-36.0) g/dL RDW 12.9 (12.0-15.0) % Plt Count 61 L (130-450) 10^3/uL MPV 11.0 (7.4-11.4) fL Neut # (Auto) Not Reportable Lymph # (Auto) Not Reportable White # (Auto) Not Reportable Eos # (Auto) Not Reportable Baso # (Auto) Not Reportable Absolute Nucleated RBC Not Reportable Total Counted 100 Band Neuts % (Manual) 25 H (0 - 10) % Abnorm Lymph % (Manual) 0 % Metamyelocytes % 1 H ( - 0) % Nucleated RBC % Not Reportable Neutrophils # (Manual) 5.5 (1.5-6.6) 10^3/uL Lymphocytes # (Manual) 1.1 L (1.5-3.5) 10^3/uL Monocytes # (Manual) 0.4 (0.0-1.0) 10^3/uL Eosinophils # (Manual) 0.1 (0-0.7) 10^3/uL Basophils # (Manual) 0.0 (0-0.1) 10^3/uL Differential Comment MANUAL DIFFERENTIAL WBC Morphology 1+ VACUOLATION (NORMAL) Platelet Estimate DECREASED (<130,000) (NORMAL) Platelet Morphology NORMAL APPEARANCE (NORMAL) RBC Morph Micro Appear NORMAL APPEARANCE (NORMAL) VBG pH (7.31-7.41) Ionized Calcium (1.15-1.33) mmol/L Sodium (135-145) mmol/L Potassium (3.5-5.0) mmol/L Chloride (101-111) mmol/L Carbon Dioxide (21-32) mmol/L Anion Gap (6-13) BUN (6-20) mg/dL Creatinine (0.6-1.2) mg/dL Estimated GFR (MDRD) (>89) Glucose (70-100) mg/dL Calcium (8.5-10.3) mg/dL Phosphorus (2.5-4.6) mg/dL Magnesium (1.7-2.8) mg/dL Total Bilirubin (0.2-1.0) mg/dL Direct Bilirubin (0.1-0.5) mg/dL AST (10-42) IU/L ALT (10-60) IU/L Alkaline Phosphatase (42-121) IU/L C-Reactive Protein (0-1.0) mg/dL Total Protein (6.7-8.2) g/dL Albumin (3.2-5.5) g/dL Globulin (2.1-4.2) g/dL Sepsis Event Note (H) - Evaluation Current Stage of Sepsis: Septic shock Possible source of Sepsis: positive: Unknown - Sepsis Criteria Sepsis Criteria: WBC count greater than 10% bands, SBP drop more than 40mHg, SBP less than 90 mmHg, Renal: urine output less than 0.5ml/kg/hr for 2 hours or creatinine gr, Hematologic: platelets < 100,000; INR > 1.5, or a PTT>60 seconds Assessment/Plan - Problem List (1) Septic shock Impression: The concerns for septic shock given the hypotension requiring vasopressors as well as the nearly 30% bands and thrombocytopenia. There has been no obvious source of infection. Imaging has been unremarkable and blood cultures have been negative to date. He does not appear to be in cardiogenic shock given the normal troponins. Unfortunately do not have echocardiogram available for the next few days but if he remains hypotensive we may need to consider transfer for an echocardiogram. Imaging did not reveal a pericardial effusion to suggest tamponade as a cause of his hypotension. At this time, we will continue vancomycin and Zosyn IV empirically. Follow-up cultures. Continue norepinephrine for goal mean arterial pressure greater than 65 mmHg. We will give him another liter of lactated Ringer's today. We will also check HIV, GGT, ferritin, lipid panel to light for potential other causes of his shock such as HLH. If all this is unremarkable then we will look to discuss with infectious disease for further recommendations. (2) KIM (acute kidney injury) Impression: This has resolved and was likely prerenal in nature due to decreased oral intake. Renal function is back to baseline we will continue to monitor. (3) Hyponatremia Impression: This was hypovolemic hyponatremia and has since resolved after receiving IV fluids. (4) Thrombocytopenia Impression: This is stable but ongoing. His platelet count is approximately 60. Suspect this is secondary to sepsis given the acute drop in his platelet count compared to labs from about 10 days ago. LDH is within normal limits so we doubt hemolysis. (5) Headache Impression: Suspect this has been secondary to subjective fevers and likely infection. LP and imaging were unremarkable. Continue Tylenol as needed. (6) PTSD (post-traumatic stress disorder) Impression: We will resume his home Cymbalta and continue with hydroxyzine as needed for his anxiety.
[2021-08-18] MEDS ORDERED: NEUTRA-PHOS 250 MG TABLET PO SCH (09:00)
[2021-08-18 09:38] LABS: INR 1.2 (0.8-1.2); PT - PROTHROMBIN TIME 13.7 secs (9.9-12.6)
[2021-08-18] MEDS: DULoxetine 30 MG CAPSULE PO SCH (09:50)
[2021-08-18 10:03] LABS: FREE T4 (FREE THYROXINE) 1.68 ng/dL (0.58-1.64)
[2021-08-18 10:05] LABS: FERRITIN 1034.6 ng/mL (23.9-336.2)
[2021-08-18 10:09] LABS: % IRON SATURATION 28 % (20-50); IRON 51 ug/dL (45-182); TOTAL IRON BINDING CAPACITY 185 ug/dL (250-450); TRANSFERRIN 132 mg/dL (180-329)
[2021-08-18 10:12] LABS: CHOL/HDL RATIO 14.9 (<5.0); CHOLESTEROL 134 mg/dL; GAMMA GLUTAMYL TRANSPEPTIDASE 79 IU/L (8-55); HDL CHOLESTEROL 9 mg/dL; LDL CHOLESTEROL,CALCULATED 83 mg/dL; LDL/HDL RATIO 9.2 (<3.6); TRIGLYCERIDES 212 mg/dL; VLDL CHOLESTEROL 42 mg/dL
[2021-08-18 10:26] LABS: HIV RAPID SCREEN NEGATIVE (NEGATIVE)
[2021-08-18 12:48] LABS: HEMOGLOBIN TOTAL, VENOUS WB 12.9 g/dL (12.0-18.0)
[2021-08-18 12:49] LABS: CARBOXYHEMOGLOBIN VENOUS 1.3 % (0-1.5); METHEMOGLOBIN VENOUS 0.3 % (0-1.5)
[2021-08-18] MEDS: traZODone 50 MG TABLET PO PRN (23:04)
[2021-08-19] MEDS: PIPERACILLIN/TAZOBACTAM 3.375 GM in SODIUM CHLORIDE 0.9% MINIBAG 100 ML IV SCH ×3 (06:09→21:39)
[2021-08-19] MEDS: ACETAMINOPHEN 325 MG TABLET PO PRN ×4 (06:20→20:13)
[2021-08-19] MEDS: oxyCODONE 5 MG TABLET PO PRN ×4 (06:20→20:13)
[2021-08-19 06:25] LABS: CALCIUM, IONIZED 1.13 mmol/L (1.15-1.33); VBG PH 7.435 (7.31-7.41)
[2021-08-19 06:27] LABS: BASOPHILS % (AUTO) 0.6 %; EOSINOPHILS % (AUTO) 2.4 %; HCT - HEMATOCRIT 34.2 % (42.0-52.0); HGB - HEMOGLOBIN 11.7 g/dL (14.0-18.0); LYMPHOCYTES % (AUTO) 28.5 %; MEAN CORPUSCULAR HEMOGLOBIN 30.8 pg (27.0-31.0); MEAN CORPUSCULAR HGB CONC 34.2 g/dL (32.0-36.0); MEAN PLATELET VOLUME 10.3 fL (7.4-11.4); MONOCYTES % (AUTO) 8.5 %; NEUTROPHILS % (AUTO) 59.6 %; PLT - PLATELET COUNT 42 10^3/uL (130-450); WHITE BLOOD COUNT 4.9 x10^3/uL (4.8-10.8)
[2021-08-19 06:35] LABS: CALCIUM 7.8 mg/dL (8.5-10.3)
[2021-08-19 06:42] LABS: ABNORMAL LYMPHS % (MANUAL) 4 %; BAND NEUTROPHILS % (MANUAL) 1 %; BASOPHILS % (MANUAL) 1 %; DIFFERENTIAL COMMENT MANUAL DIFFERENTIAL; EOSINOPHILS # (MANUAL) 0.1 10^3/uL (0-0.7); LYMPHOCYTES # (MANUAL) 1.4 10^3/uL (1.5-3.5); LYMPHOCYTES % (MANUAL) 25 %; MONOCYTES # (MANUAL) 0.3 10^3/uL (0.0-1.0); PLATELET ESTIMATE, MANUAL DECREASED (<130,000) (NORMAL); PLATELET MORPHOLOGY NORMAL APPEARANCE (NORMAL); RBC MORPHOLOGY (MULTIPLE) NORMAL APPEARANCE (NORMAL); WBC MORPHOLOGY (MULTIPLE) NORMAL APPEARANCE (NORMAL)
[2021-08-19] MEDS ORDERED: SODIUM CHLORIDE 0.65% NASAL SPRAY NAS PRN (06:55)
[2021-08-19 07:01] LABS: VANCOMYCIN,TROUGH 11.2 ug/mL (10.0-20.0)
[2021-08-19 07:06] LABS: CREATININE 0.9 mg/dL (0.6-1.2); CRP - C-REACTIVE PROTEIN 9.8 mg/dL (0-1.0); MAGNESIUM 1.8 mg/dL (1.7-2.8); PHOSPHORUS 2.7 mg/dL (2.5-4.6)
[2021-08-19] MEDS: hydrOXYzine PAMOATE 25 MG CAPSULE PO PRN ×2 (07:44→15:55)
[2021-08-19] MEDS: POTASSIUM CHLORIDE 20 MEQ TABLET PO SCH ×2 (07:44→10:18)
[2021-08-19] MEDS: VANCOMYCIN INJ 1 GM in SODIUM CHLORIDE 0.9% 250 ML IV SCH ×2 (07:45→16:01)
--- NOTE | 2021-08-19 08:06 | XRAY Report ---
PROCEDURE: Chest 1 View X-Ray INDICATIONS: Hypoxia. Hypotension. TECHNIQUE: One view of the chest was acquired. COMPARISON: Chest x-ray 08/16/2021, CT chest 08/16/2021 FINDINGS: Surgical changes and devices: Right-sided catheter is present distal tip projecting over the proximal SVC. Lungs and pleura: In interval since the prior exam, there is blunting of the left costophrenic angle. In addition, hazy opacities are noted within the bases bilaterally. Mediastinum: Mediastinal contours appear normal. Heart size is normal. Bones and chest wall: No suspicious bony lesions. Overlying soft tissues appear unremarkable. IMPRESSION: Interval blunting of the left costophrenic angle suggestive of effusion. Interval bibasilar opacities suggestive of developing airspace disease such as atelectasis and/or pneumonia. Reviewed by: Martina Saldana MD on 08/19/2021 8:05 AM PST Approved by: Martina Saldana MD on 08/19/2021 8:05 AM PST Station ID: [id number]
[2021-08-19] MEDS: DULoxetine 30 MG CAPSULE PO SCH (08:47)
[2021-08-19] MEDS: SODIUM CHLORIDE FLUSH 0.9% 10 ML SYRINGE IVP SCH ×5 (08:48→21:40)
--- NOTE | 2021-08-19 11:56 | PHARMACY PROGRESS NOTE ---
- Therapy Status Therapy status: Trough subtherapeutic Basis for treatment: Empirical Treatment indication: Sepsis Trough goal: 15-20 Concurrent antibiotics: Zosyn - KIM Risk Risk level for Acute Kidney Injury: High Acute Kidney Injury risk factors: Piperacillin/Tozobactam, Goal trough >15, Admission to ICU, Sepsis - Monitoring and Recommendation Clinical response to treatment: I&O Previous 24 hours 08/17/21 08/18/21 08/19/21 23:59 23:59 23:59 Intake Total 6878.292 4811.812 1271.938 Output Total 1600 3100 350 Balance 5278.292 1711.812 921.938 Lab Results 08/19/21 08/18/21 08/17/21 06:15 04:45 04:22 ESR BUN 9 12 19 Creatinine 0.9 0.9 1.2 Estimated GFR (MDRD) 88 L 88 L 63 L 08/16/21 08/16/21 14:38 13:40 ESR 20 BUN 20 Creatinine 1.4 H Estimated GFR (MDRD) 53 L Vancomycin Monitoring 08/19/21 06:15 Vancomycin Trough 11.2 Cultures 08/16/21 16:07 Cerebral Spinal Fluid CSF Culture - Final 08/16/21 13:45 Blood Blood Culture - Preliminary NO GROWTH AFTER 2 DAYS 08/16/21 13:40 Blood Blood Culture - Preliminary NO GROWTH AFTER 2 DAYS Monitoring plan: Daily serum creatinine, Suggest ongoing fluid replacement Areas for additional monitoring: Therapy de-escalation based on culture results Pharmacy recommendation: Increase dose (Increase vancomycin to 1 gm IV q8h for estimated trough of ~15)
--- NOTE | 2021-08-19 18:51 | PROVIDER PROGRESS NOTE ---
Subjective - Prog Note Date Prog Note Date: 08/19/21 - Subjective Subjective: He still feels like he has a headache and occasional neck pain. He just feels anxious overall. He has been able to walk around the ICU. Current Medications - Current Medications Current Medications: Active Medications Acetaminophen (Acetaminophen 325 Mg Tablet) 650 mg PO Q4HR PRN PRN Reason: Pain 1 to 4 Last Admin: 08/19/21 14:05 Dose: 650 mg Documented by: Duloxetine HCl (Duloxetine 30 Mg Capsule) 30 mg PO DAILY [facility] Last Admin: 08/19/21 08:47 Dose: 30 mg Documented by: Hydroxyzine Pamoate (Hydroxyzine Pamoate 25 Mg Capsule) 25 mg PO Q6HR PRN PRN Reason: Anxiety Last Admin: 08/19/21 15:55 Dose: 25 mg Documented by: Piperacillin Sod/Tazobactam (Sod 3.375 gm/ Sodium Chloride) 100 mls @ 25 mls/hr IV Q8H [facility] Last Infusion: 08/19/21 17:53 Dose: Infused Documented by: Norepinephrine Bitartrate 8 mg (/ Dextrose) 250 mls @ 15 mls/hr IV .[id number] [facility]; Protocol Last Titration: 08/19/21 17:00 Dose: 0 mcg/min, 0 mls/hr Documented by: Sodium Chloride (Normal Saline 0.9%) 500 mls @ 20 mls/hr IV Q24H PRN PRN Reason: TKO RATE Last Infusion: 08/18/21 06:36 Dose: Infused Documented by: Vancomycin HCl 1 gm/ Sodium (Chloride) 250 mls @ 167 mls/hr IV Q8H [facility] Last Infusion: 08/19/21 17:53 Dose: Infused Documented by: Ondansetron HCl (Ondansetron 4 Mg/2 Ml Vial) 4 mg IVP Q6HR PRN PRN Reason: Nausea / Vomiting Oxycodone HCl (Oxycodone 5 Mg Tablet) 5 mg PO Q4HR PRN PRN Reason: Pain 5 to 7 Last Admin: 08/19/21 14:05 Dose: 5 mg Documented by: Sodium Chloride (Sodium Chloride Flush 0.9% 10 Ml Syringe) 10 ml IVP PRN PRN PRN Reason: NEEDED PER PROVIDER ORDERS Sodium Chloride (Sodium Chloride Flush 0.9% 10 Ml Syringe) 10 ml IVP 0100,0900,1700 [facility] Last Admin: 08/19/21 16:03 Dose: 10 ml Documented by: Sodium Chloride (Sodium Chloride Flush 0.9% 10 Ml Syringe) 10 ml IVP 0100,0900,1700 [facility] Last Admin: 08/19/21 16:03 Dose: 10 ml Documented by: Sodium Chloride (Sodium Chloride Flush 0.9% 10 Ml Syringe) 10 ml IVP PRN PRN PRN Reason: NEEDED PER PROVIDER ORDERS Sodium Chloride (Sodium Chloride 0.65% Nasal [place]) 2 sprays ERVIN Q4HR PRN PRN Reason: Nasal Congestion Last Admin: 08/19/21 11:09 Dose: 2 sprays Documented by: Trazodone HCl (Trazodone 50 Mg Tablet) 100 mg PO QPM PRN PRN Reason: Insomnia Last Admin: 08/18/21 23:04 Dose: 100 mg Documented by: DULoxetine [Cymbalta] 30 mg PO DAILY 08/17/21 Ondansetron Odt [Zofran Odt] 4 mg TL Q6H PRN 08/17/21 Sumatriptan Succinate [Imitrex] 100 mg PO DAILY PRN 08/17/21 Trazodone HCl 100 mg PO QPM PRN 08/17/21 Objective - Vital Signs/Intake & Output Reviewed Vital Signs: Yes Vital Signs: Vital Signs Temp Pulse Resp BP Pulse Ox 08/19/21 17:00 59 L 15 96/65 96 08/19/21 16:00 37.1 C 52 L 13 93/63 94 08/19/21 15:00 59 L 12 88/59 L 95 Intake & Output: Intake & Output 08/16/21 08/17/21 08/18/21 08/19/21 23:59 23:59 23:59 23:59 Intake Total 2809.21 6878.292 4811.812 2845.813 Output Total 900 1600 3100 1500 Balance 1909.21 5278.292 4435.039 9118.813 - Objective General Appearance: positive: No acute distress, Alert Eyes Bilateral: positive: Normal inspection, Conjunctivae nml ENT: positive: ENT inspection nml Neck: positive: Nml inspection Respiratory: positive: No respiratory distress. negative: Wheezes, Rales Cardiovascular: positive: Regular rate & rhythm. negative: Tachycardia Abdomen: positive: Non-tender, No distention. negative: Tenderness Skin: positive: Warm, Dry Extremities: positive: No pedal edema Neurologic/Psychiatric: negative: Disoriented to person, Disoriented to place - Lab Results Fish Bones: 08/19/21 06:15 08/19/21 06:15 Other Labs: Lab Results x24hrs 08/19/21 08/19/21 08/19/21 Range/Units 06:15 06:15 06:15 WBC (4.8-10.8) x10^3/uL RBC (4.70-6.10) 10^6/uL Hgb (14.0-18.0) g/dL Hct (42.0-52.0) % MCV (80.0-94.0) fL MCH (27.0-31.0) pg MCHC (32.0-36.0) g/dL RDW (12.0-15.0) % Plt Count (130-450) 10^3/uL MPV (7.4-11.4) fL Neut # (Auto) Lymph # (Auto) [place] # (Auto) Eos # (Auto) Baso # (Auto) Absolute Nucleated RBC Total Counted Band Neuts % (Manual) (0 - 10) % Abnorm Lymph % (Manual) % Nucleated RBC % Neutrophils # (Manual) (1.5-6.6) 10^3/uL Lymphocytes # (Manual) (1.5-3.5) 10^3/uL Monocytes # (Manual) (0.0-1.0) 10^3/uL Eosinophils # (Manual) (0-0.7) 10^3/uL Basophils # (Manual) (0-0.1) 10^3/uL Differential Comment WBC Morphology (NORMAL) Platelet Estimate (NORMAL) Platelet Morphology (NORMAL) RBC Morph Micro Appear (NORMAL) VBG pH 7.435 H (7.31-7.41) Ionized Calcium 1.13 L (1.15-1.33) mmol/L Sodium 139 (135-145) mmol/L Potassium 3.0 L (3.5-5.0) mmol/L Chloride 105 (101-111) mmol/L Carbon Dioxide 28 (21-32) mmol/L Anion Gap 6.0 (6-13) BUN 9 (6-20) mg/dL Creatinine 0.9 (0.6-1.2) mg/dL Estimated GFR (MDRD) 88 L (>89) Glucose 97 (70-100) mg/dL Calcium 7.8 L (8.5-10.3) mg/dL Phosphorus 2.7 (2.5-4.6) mg/dL Magnesium 1.8 (1.7-2.8) mg/dL C-Reactive Protein 9.8 H (0-1.0) mg/dL Last Dose Date 08/18 Last Dose Time 2339 Vancomycin Trough 11.2 (10.0-20.0) ug/mL 08/19/21 Range/Units 06:15 WBC 4.9 (4.8-10.8) x10^3/uL RBC 3.80 L (4.70-6.10) 10^6/uL Hgb 11.7 L (14.0-18.0) g/dL Hct 34.2 L (42.0-52.0) % MCV 90.0 (80.0-94.0) fL MCH 30.8 (27.0-31.0) pg MCHC 34.2 (32.0-36.0) g/dL RDW 13.0 (12.0-15.0) % Plt Count 42 L (130-450) 10^3/uL MPV 10.3 (7.4-11.4) fL Neut # (Auto) Not Reportable Lymph # (Auto) Not Reportable [place] # (Auto) Not Reportable Eos # (Auto) Not Reportable Baso # (Auto) Not Reportable Absolute Nucleated RBC Not Reportable Total Counted 100 Band Neuts % (Manual) 1 (0 - 10) % Abnorm Lymph % (Manual) 4 % Nucleated RBC % Not Reportable Neutrophils # (Manual) 3.0 (1.5-6.6) 10^3/uL Lymphocytes # (Manual) 1.4 L (1.5-3.5) 10^3/uL Monocytes # (Manual) 0.3 (0.0-1.0) 10^3/uL Eosinophils # (Manual) 0.1 (0-0.7) 10^3/uL Basophils # (Manual) 0.0 (0-0.1) 10^3/uL Differential Comment MANUAL DIFFERENTIAL WBC Morphology NORMAL APPEARANCE (NORMAL) Platelet Estimate DECREASED (<130,000) (NORMAL) Platelet Morphology NORMAL APPEARANCE (NORMAL) RBC Morph Micro Appear NORMAL APPEARANCE (NORMAL) VBG pH (7.31-7.41) Ionized Calcium (1.15-1.33) mmol/L Sodium (135-145) mmol/L Potassium (3.5-5.0) mmol/L Chloride (101-111) mmol/L Carbon Dioxide (21-32) mmol/L Anion Gap (6-13) BUN (6-20) mg/dL Creatinine (0.6-1.2) mg/dL Estimated GFR (MDRD) (>89) Glucose (70-100) mg/dL Calcium (8.5-10.3) mg/dL Phosphorus (2.5-4.6) mg/dL Magnesium (1.7-2.8) mg/dL C-Reactive Protein (0-1.0) mg/dL Last Dose Date Last Dose Time Vancomycin Trough (10.0-20.0) ug/mL Sepsis Event Note (H) - Evaluation Current Stage of Sepsis: Septic shock Possible source of Sepsis: positive: Unknown - Sepsis Criteria Sepsis Criteria: WBC count greater than 10% bands, SBP drop more than 40mHg, SBP less than 90 mmHg, Renal: urine output less than 0.5ml/kg/hr for 2 hours or creatinine gr, Hematologic: platelets < 100,000; INR > 1.5, or a PTT>60 seconds Assessment/Plan - Problem List (1) Septic shock Impression: The current concern still remains for septic shock given he had nearly 3% bands, thrombocytopenia, and hypotension requiring vasopressors. He has been on vancomycin and Zosyn. There has been no obvious source of infection. I did repeat a chest x-ray today which was concerning for potential pneumonia or atelectasis but clinically he does not appear to have pneumonia. His norepinephrine requirements are decreasing which is nice to see given he had increasing requirements just over 24 hours ago. I am hopeful he can be weaned off of norepinephrine by this evening. I spoke with infectious disease at [facility] in [place] and they agree that he should be transferred for further work-up which may include a bone marrow biopsy. They asked me to order the cryptococcal antigen which has been done. The patient remain on IV antibiotics for the time being. Once a bed is available at [facility] in [place] then he will be transferred there. (2) KIM (acute kidney injury) Impression: This is resolved. Renal function is back to baseline. (3) Hyponatremia Impression: This was hypovolemic hyponatremia and has resolved. (4) Thrombocytopenia Impression: Ongoing and worsening. Suspect to be secondary to sepsis. Platelet count is now in the 40s. We will continue to monitor and treat the underlying cause which is suspected to be infection. (5) Headache Impression: Improved but ongoing. LP was unremarkable. Suspect likely due to the underlying sepsis and infection. Continue with Tylenol as needed. (6) PTSD (post-traumatic stress disorder) Impression: Continue Cymbalta and hydroxyzine as needed.
[2021-08-19] MEDS: SODIUM CHLORIDE 0.9% 500 ML IV PRN (21:39)
[2021-08-19] MEDS: SODIUM CHLORIDE FLUSH 0.9% 10 ML SYRINGE IVP PRN (21:40)
[2021-08-19] MEDS: traZODone 50 MG TABLET PO PRN (23:06)
[2021-08-20] MEDS: VANCOMYCIN INJ 1 GM in SODIUM CHLORIDE 0.9% 250 ML IV SCH ×3 (00:05→16:42)
[2021-08-20] MEDS: SODIUM CHLORIDE FLUSH 0.9% 10 ML SYRINGE IVP SCH ×6 (00:07→17:04)
[2021-08-20] MEDS: oxyCODONE 5 MG TABLET PO PRN ×4 (05:48→19:49)
[2021-08-20] MEDS: PIPERACILLIN/TAZOBACTAM 3.375 GM in SODIUM CHLORIDE 0.9% MINIBAG 100 ML IV SCH ×3 (05:48→22:05)
[2021-08-20] MEDS: ACETAMINOPHEN 325 MG TABLET PO PRN ×4 (05:48→19:49)
[2021-08-20] MEDS: SODIUM CHLORIDE FLUSH 0.9% 10 ML SYRINGE IVP PRN (05:49)
[2021-08-20 06:08] LABS: BASOPHILS % (AUTO) 0.5 %; EOSINOPHILS % (AUTO) 3.3 %; HGB - HEMOGLOBIN 11.6 g/dL (14.0-18.0); LYMPHOCYTES % (AUTO) 38.3 %; MEAN CORPUSCULAR HEMOGLOBIN 30.5 pg (27.0-31.0); MEAN CORPUSCULAR HGB CONC 34.1 g/dL (32.0-36.0); MEAN CORPUSCULAR VOLUME 89.5 fL (80.0-94.0); MEAN PLATELET VOLUME 10.3 fL (7.4-11.4); MONOCYTES % (AUTO) 6.1 %; NEUTROPHILS % (AUTO) 51.1 %; PLT - PLATELET COUNT 76 10^3/uL (130-450); RED CELL DISTRIBUTION WIDTH 13.4 % (12.0-15.0); WHITE BLOOD COUNT 5.8 x10^3/uL (4.8-10.8)
[2021-08-20 06:09] LABS: CALCIUM, IONIZED 1.2 mmol/L (1.15-1.33); VBG PH 7.415 (7.31-7.41)
[2021-08-20 06:10] LABS: ABNORMAL LYMPHS % (MANUAL) 0 %
[2021-08-20 06:22] LABS: CALCIUM 8.6 mg/dL (8.5-10.3); CREATININE 0.9 mg/dL (0.6-1.2); CRP - C-REACTIVE PROTEIN 5.9 mg/dL (0-1.0); MAGNESIUM 1.7 mg/dL (1.7-2.8); PHOSPHORUS 3.8 mg/dL (2.5-4.6); POTASSIUM 3.4 mmol/L (3.5-5.0)
[2021-08-20 06:27] LABS: BAND NEUTROPHILS % (MANUAL) 4 %; DIFFERENTIAL COMMENT MANUAL DIFFERENTIAL; EOSINOPHILS # (MANUAL) 0.2 10^3/uL (0-0.7); LYMPHOCYTES # (MANUAL) 2.1 10^3/uL (1.5-3.5); LYMPHOCYTES % (MANUAL) 36 %; METAMYELOCYTES % (MANUAL) 1 %; MONOCYTES # (MANUAL) 0.1 10^3/uL (0.0-1.0); NEUTROPHILS # (MANUAL) 3.4 10^3/uL (1.5-6.6); PLATELET ESTIMATE, MANUAL DECREASED (<130,000) (NORMAL); PLATELET MORPHOLOGY NORMAL APPEARANCE (NORMAL); RBC MORPHOLOGY (MULTIPLE) NORMAL APPEARANCE (NORMAL); WBC MORPHOLOGY (MULTIPLE) NORMAL APPEARANCE (NORMAL)
[2021-08-20] MEDS ORDERED: POTASSIUM CHLORIDE 20 MEQ TABLET PO SCH (08:00)
[2021-08-20] MEDS: POTASSIUM CHLOR 10 MEQ/100 ML 10 MEQ/100 ML BAG IV SCH ×4 (09:03→14:55)
[2021-08-20] MEDS: MAGNESIUM OXIDE 400 MG TABLET PO SCH ×2 (09:14→14:57)
[2021-08-20] MEDS: DULoxetine 30 MG CAPSULE PO SCH (09:15)
[2021-08-20] MEDS: hydrOXYzine PAMOATE 25 MG CAPSULE PO PRN ×2 (10:36→19:49)
--- NOTE | 2021-08-20 17:05 | PROVIDER PROGRESS NOTE ---
Assessment/Plan - Problem List (1) Septic shock Assessment/Plan: The concern still remains for septic shock given he had nearly 3% bands, thrombocytopenia, and "soft" BP, but vasopressors were able to be stopped yesterday evening. He has been on vancomycin and Zosyn. There has been no obvious source of infection. A repeat chest x-ray did not appear to have pneumonia. CRP has decreased from 8 to 5 today. The last Hospitalist spoke with infectious disease at [facility] in [place] yesterday, and they agree that he should be transferred for further work-up which may include a bone marrow biopsy and Echo/SANTOSH. They asked us to order the cryptococcal antigen which was done. The patient will remain on IV antibiotics. He can be transferred out of our ICU. Once a bed is available at [facility] then he will be transferred there. (2) Thrombocytopenia Impression: Ongoing but improved from 40 yesterday to 70 today. Suspect to be secondary to sepsis. We will continue to monitor and treat the underlying cause which is suspected to be infection. (3) Headache Impression: Improved but ongoing. LP was unremarkable. Head CT showed no evidence of sinusitis, done at admission, 08/16/2021. Suspect MCKINLEY is likely due to the underlying sepsis and infection. Continue with Tylenol as needed. (4) PTSD (post-traumatic stress disorder) Impression: Continue Cymbalta and hydroxyzine as needed. (5) KIM (acute kidney injury) Impression: This has resolved. Renal function is back to baseline. (6) Hyponatremia Impression: This was hypovolemic hyponatremia and has resolved. - Current Meds Current Meds: Current Medications Generic Name Dose Route Start Last Admin Trade Name Freq PRN Reason Stop Dose Admin Acetaminophen 650 mg 08/16/21 17:21 08/20/21 15:46 Acetaminophen 325 Mg Tablet PO 650 mg Q4HR PRN Administration Pain 1 to 4 Duloxetine HCl 30 mg 08/18/21 10:00 08/20/21 09:15 Duloxetine 30 Mg Capsule PO 30 mg DAILY RAD[facility] Administration Hydroxyzine Pamoate 25 mg 08/17/21 10:07 08/20/21 10:36 Hydroxyzine Pamoate 25 Mg Capsule PO 25 mg Q6HR PRN Administration Anxiety Piperacillin Sod/Tazobactam 100 mls @ 25 mls/hr 08/17/21 07:00 08/20/21 14:57 Sod 3.375 gm/ Sodium Chloride IV 25 mls/hr Q8H RAD[facility] Administration Sodium Chloride 500 mls @ 20 mls/hr 08/17/21 03:56 08/20/21 13:19 Normal Saline 0.9% IV 20 mls/hr Q24H PRN Infusion TKO RATE Vancomycin HCl 1 gm/ Sodium 250 mls @ 167 mls/hr 08/19/21 16:00 08/20/21 16: 42 Chloride IV 167 mls/hr Q8H RADHA Administration Oxycodone HCl 5 mg 08/16/21 17:21 08/20/21 15:46 Oxycodone 5 Mg Tablet PO 5 mg Q4HR PRN Administration Pain 5 to 7 Sodium Chloride 10 ml 08/16/21 17:21 08/20/21 05:49 Sodium Chloride Flush 0.9% 10 Ml Syringe IVP 30 ml PRN PRN Administration NEEDED PER PROVIDER ORDERS Sodium Chloride 10 ml 08/17/21 01:00 08/20/21 09:12 Sodium Chloride Flush 0.9% 10 Ml Syringe IVP 10 ml 0100,0900,1700 RADHA Administration Sodium Chloride 10 ml 08/17/21 01:00 08/20/21 09:15 Sodium Chloride Flush 0.9% 10 Ml Syringe IVP Not Given 0100,0900,1700 [facility] Sodium Chloride 2 sprays 08/19/21 06:55 08/19/21 11:09 Sodium Chloride 0.65% Nasal [place] ERVIN 2 sprays Q4HR PRN Administration Nasal Congestion Trazodone HCl 100 mg 08/18/21 09:33 08/19/21 23:06 Trazodone 50 Mg Tablet PO 100 mg QPM PRN Administration Insomnia - Lab Result Fish Bone Diagrams: 08/20/21 05:55 08/20/21 05:55 Subjective - Subjective Patient Reports: Feeling Better (Still has a mild headache, still feels weak but was able to walk today.) Nursing Reports: Other (Has been off vasopressors for 24 hours.) Objective Vital Signs: Vital Signs - 24 hr 08/19/21 08/19/21 08/19/21 18:00 19:00 20:00 Temperature 36.8 C Heart Rate [ 60 59 L 54 L Monitoring electrodes] Respiratory 16 12 10 L Rate Blood Pressure 96/59 L 91/61 96/64 [Left Brachial artery] Blood Pressure [Right Brachial artery] O2 Saturation 95 96 97 08/19/21 08/19/21 08/19/21 21:34 22:00 23:00 Temperature Heart Rate [ 47 L 55 L 65 Monitoring electrodes] Respiratory 13 14 14 Rate Blood Pressure 93/64 84/49 L 94/55 L [Left Brachial artery] Blood Pressure [Right Brachial artery] O2 Saturation 97 98 95 08/20/21 08/20/21 08/20/21 00:13 01:00 02:00 Temperature 37.0 C Heart Rate [ 49 L 53 L 53 L Monitoring electrodes] Respiratory 19 18 15 Rate Blood Pressure 92/60 81/46 L 98/60 [Left Brachial artery] Blood Pressure [Right Brachial artery] O2 Saturation 94 94 100 08/20/21 08/20/21 08/20/21 03:00 04:00 05:00 Temperature Heart Rate [ 52 L 55 L 67 Monitoring electrodes] Respiratory 11 L 10 L 17 Rate Blood Pressure 93/57 L 105/71 101/65 [Left Brachial artery] Blood Pressure [Right Brachial artery] O2 Saturation 93 97 94 08/20/21 08/20/21 08/20/21 06:00 07:00 08:00 Temperature 37.0 C Heart Rate [ 54 L 62 65 Monitoring electrodes] Respiratory 8 L 12 16 Rate Blood Pressure 106/73 94/54 L 109/67 [Left Brachial artery] Blood Pressure [Right Brachial artery] O2 Saturation 97 95 96 08/20/21 08/20/21 08/20/21 09:00 10:00 11:00 Temperature Heart Rate [ 64 49 L 62 Monitoring electrodes] Respiratory 13 9 L 16 Rate Blood Pressure 102/55 L 113/81 H 110/78 [Left Brachial artery] Blood Pressure [Right Brachial artery] O2 Saturation 94 96 97 08/20/21 08/20/21 08/20/21 12:00 13:00 14:00 Temperature 36.5 C Heart Rate [ 58 L 56 L 62 Monitoring electrodes] Respiratory 12 13 15 Rate Blood Pressure 115/73 115/60 [Left Brachial artery] Blood Pressure 96/76 [Right Brachial artery] O2 Saturation 97 65 L 97 08/20/21 08/20/21 15:00 16:00 Temperature 37.2 C Heart Rate [ 53 L 56 L Monitoring electrodes] Respiratory 14 11 L Rate Blood Pressure [Left Brachial artery] Blood Pressure 103/53 L 116/67 [Right Brachial artery] O2 Saturation 94 96 Oxygen O2 Source Room air I&O (Last 24 Hrs): Intake and Output Totals x24h 08/18/21 08/19/21 08/20/21 23:59 23:59 23:59 Intake Total 4811.812 3595.813 3633.333 Output Total 3100 1850 2525 Balance 4449.163 7434.813 1108.333 General: Alert, Oriented x3 HEENT: Mucous membr. moist/pink Neck: Supple, No JVD Neuro: Alert, Non Focal Cardiovascular: Regular rate Respiratory: No respiratory distress Abdomen: Normal bowel sounds, Soft Extremities: No clubbing, No edema - Results Results: Laboratory Results WBC 5.8 x10^3/uL (4.8-10.8) 08/20/21 05:55 RBC 3.80 10^6/uL (4.70-6.10) L 08/20/21 05:55 Hgb 11.6 g/dL (14.0-18.0) L 08/20/21 05:55 Hct 34.0 % (42.0-52.0) L 08/20/21 05:55 MCV 89.5 fL (80.0-94.0) 08/20/21 05:55 MCH 30.5 pg (27.0-31.0) 08/20/21 05:55 MCHC 34.1 g/dL (32.0-36.0) 08/20/21 05:55 RDW 13.4 % (12.0-15.0) 08/20/21 05:55 Plt Count 76 10^3/uL (130-450) L 08/20/21 05:55 MPV 10.3 fL (7.4-11.4) 08/20/21 05:55 Reticulocyte % (Auto) 0.73 % (0.5-2.3) 08/16/21 14:39 Neut # (Auto) Not Reportable 08/20/21 05:55 Lymph # (Auto) Not Reportable 08/20/21 05:55 [place] # (Auto) Not Reportable 08/20/21 05:55 Eos # (Auto) Not Reportable 08/20/21 05:55 Baso # (Auto) Not Reportable 08/20/21 05:55 Absolute Nucleated RBC Not Reportable 08/20/21 05:55 Total Counted 100 08/20/21 05:55 Band Neuts % (Manual) 4 % (0-10) 08/20/21 05:55 Reactive Lymphs % (Man) 2 % 08/16/21 22:30 Abnorm Lymph % (Manual) 0 % 08/20/21 05:55 Metamyelocytes % 1 % (-0) H 08/20/21 05:55 Nucleated RBC % Not Reportable 08/20/21 05:55 Neutrophils # (Manual) 3.4 10^3/uL (1.5-6.6) 08/20/21 05:55 Lymphocytes # (Manual) 2.1 10^3/uL (1.5-3.5) 08/20/21 05:55 Monocytes # (Manual) 0.1 10^3/uL (0.0-1.0) 08/20/21 05:55 Eosinophils # (Manual) 0.2 10^3/uL (0-0.7) 08/20/21 05:55 Basophils # (Manual) 0.0 10^3/uL (0-0.1) 08/20/21 05:55 Differential Comment MANUAL DIFFERENTIAL 08/20/21 05:55 Manual Slide Review Indicated 08/16/21 13:40 WBC Morphology NORMAL APPEARANCE (NORMAL) 08/20/21 05:55 Platelet Estimate DECREASED (<130,000) (NORMAL) 08/20/21 05:55 Platelet Morphology NORMAL APPEARANCE (NORMAL) 08/20/21 05:55 RBC Morph Micro Appear NORMAL APPEARANCE (NORMAL) 08/20/21 05:55 ESR 20 mm/Hr (0-20) 08/16/21 14:38 Absolute Retic 0.031 10^6/uL (0.020-0.110) 08/16/21 14:39 PT 13.7 secs (9.9-12.6) H 08/18/21 07:55 INR 1.2 (0.8-1.2) 08/18/21 07:55 APTT 28.6 secs (24.9-33.3) 08/16/21 14:39 Fibrinogen 510 mg/dL (220-496) H 08/16/21 14:39 D-Dimer 817.5 ng/mL (200.0-255.0) H 08/16/21 14:39 VBG pH 7.415 (7.31-7.41) H 08/20/21 05:55 VBG Total Hgb 12.9 g/dL (12.0-18.0) 08/18/21 12:32 VBG Oxyhemoglobin 78 % (94-100) L 08/18/21 12:32 VBG Carboxyhemoglobin 1.3 % (0-1.5) 08/18/21 12:32 VBG Methemoglobin 0.3 % (0-1.5) 08/18/21 12:32 Ionized Calcium 1.20 mmol/L (1.15-1.33) 08/20/21 05:55 Sodium 138 mmol/L (135-145) 08/20/21 05:55 Potassium 3.4 mmol/L (3.5-5.0) L 08/20/21 05:55 Chloride 105 mmol/L (101-111) 08/20/21 05:55 Carbon Dioxide 26 mmol/L (21-32) 08/20/21 05:55 Anion Gap 7.0 (6-13) 08/20/21 05:55 BUN 11 mg/dL (6-20) 08/20/21 05:55 Creatinine 0.9 mg/dL (0.6-1.2) 08/20/21 05:55 Estimated GFR (MDRD) 88 (>89) L 08/20/21 05:55 Glucose 99 mg/dL (70-100) 08/20/21 05:55 Lactic Acid 1.2 mmol/L (0.5-2.2) 08/16/21 22:30 Calcium 8.6 mg/dL (8.5-10.3) 08/20/21 05:55 Phosphorus 3.8 mg/dL (2.5-4.6) 08/20/21 05:55 Magnesium 1.7 mg/dL (1.7-2.8) 08/20/21 05:55 Iron 51 ug/dL (45-182) 08/18/21 04:45 TIBC 185 ug/dL (250-450) L 08/18/21 04:45 % Saturation 28 % (20-50) 08/18/21 04:45 Transferrin 132 mg/dL (180-329) L 08/18/21 04:45 Ferritin 1034.6 ng/mL (23.9-336.2) H 08/18/21 04:45 Total Bilirubin 1.3 mg/dL (0.2-1.0) H 08/18/21 04:45 Direct Bilirubin 0.5 mg/dL (0.1-0.5) 08/18/21 04:45 Indirect Bilirubin 1.6 mg/dL 08/16/21 14:39 GGT 79 IU/L (8-55) H 08/18/21 04:45 AST 63 IU/L (10-42) H 08/18/21 04:45 ALT 51 IU/L (10-60) 08/18/21 04:45 Alkaline Phosphatase 97 IU/L (42-121) 08/18/21 04:45 Lactate Dehydrogenase 174 IU/L (91-225) 08/18/21 04:45 Total Creatine Kinase 80 IU/L (22-269) 08/16/21 13:40 Troponin I High Sens 14.2 ng/L (2.3-19.7) 08/18/21 04:45 C-Reactive Protein 5.9 mg/dL (0-1.0) H 08/20/21 05:55 Total Protein 4.8 g/dL (6.7-8.2) L 08/18/21 04:45 Albumin 2.4 g/dL (3.2-5.5) L 08/18/21 04:45 Globulin 2.4 g/dL (2.1-4.2) 08/18/21 04:45 Albumin/Globulin Ratio 1.2 (1.0-2.2) 08/16/21 13:40 Triglycerides 212 mg/dL (-149) H 08/18/21 04:45 Cholesterol 134 mg/dL (-199) 08/18/21 04:45 LDL Cholesterol, Calc 83 mg/dL (-129) 08/18/21 04:45 VLDL Cholesterol 42 mg/dL 08/18/21 04:45 HDL Cholesterol 9 mg/dL (60-) L 08/18/21 04:45 LDL/HDL Ratio 9.2 (<3.6) 08/18/21 04:45 Cholesterol/HDL Ratio 14.9 (<5.0) 08/18/21 04:45 TSH 1.17 uIU/mL (0.34-5.60) 08/16/21 13:40 Free T4 1.68 ng/dL (0.58-1.64) H 08/18/21 04:45 Cortisol 28.1 ug/dL 08/16/21 13:40 Urine Color YELLOW 08/16/21 15:58 Urine Clarity HAZY (CLEAR) 08/16/21 15:58 Urine pH 6.0 PH (5.0-7.5) 08/16/21 15:58 Ur Specific [place] 1.020 (1.002-1.030) 08/16/21 15:58 Urine Protein 30 mg/dL (NEGATIVE) H 08/16/21 15:58 Urine Glucose (UA) NEGATIVE mg/dL (NEGATIVE) 08/16/21 15:58 Urine Ketones NEGATIVE mg/dL (NEGATIVE) 08/16/21 15:58 Urine Occult Blood MODERATE (NEGATIVE) H 08/16/21 15:58 Urine Nitrite NEGATIVE (NEGATIVE) 08/16/21 15:58 Urine Bilirubin NEGATIVE (NEGATIVE) 08/16/21 15:58 Urine Urobilinogen 2 E.U./dL (NORMAL) H 08/16/21 15:58 Ur Leukocyte Esterase NEGATIVE (NEGATIVE) 08/16/21 15:58 Urine RBC 6-10 /HPF (0-5) H 08/16/21 15:58 Urine WBC 0-3 /HPF (0-3) 08/16/21 15:58 Ur Squamous Epith Cells NONE SEEN (<= Few) 08/16/21 15:58 Urine Bacteria None Seen /HPF (None Seen) 08/16/21 15:58 Urine Culture Comments NOT INDICATED 08/16/21 15:58 CSF Color COLORLESS (COLORLESS) 08/16/21 16:07 CSF Clarity CLEAR (CLEAR) 08/16/21 16:07 Xanthrochromic ABSENT (ABSENT) 08/16/21 16:07 CSF WBC 1 /mm^3 (0-5) 08/16/21 16:07 CSF RBC 3 /mm^3 (0-1) H 08/16/21 16:07 CSF Cell Count Tube # CSF TUBE# 3 08/16/21 16:07 CSF Glucose 78 mg/dL (45-70) H 08/16/21 16:07 CSF Total Protein 40 mg/dL (15-45) 08/16/21 16:07 Nasal Adenovirus (PCR) NOT DETECTED 08/16/21 13:28 Nasal B. parapertussis DNA (PCR) NOT DETECTED 08/16/21 13:28 Nasal Coronavir 229E PCR NOT DETECTED 08/16/21 13:28 Nasal Coronavir HKU1 PCR NOT DETECTED 08/16/21 13:28 Nasal Coronavir NL63 PCR NOT DETECTED 08/16/21 13:28 Nasal Coronavir OC43 PCR NOT DETECTED 08/16/21 13:28 Nasal Enterovir/Rhinovir PCR NOT DETECTED 08/16/21 13:28 Nasal Influenza B PCR NOT DETECTED 08/16/21 13:28 Nasal Influenza A PCR NOT DETECTED 08/16/21 13:28 Nasal Parainfluen 1 PCR NOT DETECTED 08/16/21 13:28 Nasal Parainfluen 2 PCR NOT DETECTED 08/16/21 13:28 Nasal Parainfluen 3 PCR NOT DETECTED 08/16/21 13:28 Nasal Parainfluen 4 PCR NOT DETECTED 08/16/21 13:28 Nasal RSV (PCR) NOT DETECTED 08/16/21 13:28 Nasal Screen MRSA (PCR) NEGATIVE (NEGATIVE) 08/17/21 00:44 Nasal B.pertussis DNA PCR NOT DETECTED 08/16/21 13:28 Nasal C.pneumoniae (PCR) NOT DETECTED 08/16/21 13:28 Ervin Human Metapneumo PCR NOT DETECTED 08/16/21 13:28 Nasal M.pneumoniae (PCR) NOT DETECTED 08/16/21 13:28 Nasal SARS-CoV-2 (PCR) NOT DETECTED 08/16/21 13:28 Last Dose Date 08/1808/19/21 06:15 Last Dose Time 233808/19/21 06:15 Vancomycin Trough 11.2 ug/mL (10.0-20.0) 08/19/21 06:15 Urine Opiates Screen NEGATIVE (NEGATIVE) 08/16/21 15:58 Ur Oxycodone Screen NEGATIVE (NEGATIVE) 08/16/21 15:58 Urine Methadone Screen NEGATIVE (NEGATIVE) 08/16/21 15:58 Ur Propoxyphene Screen NEGATIVE (NEGATIVE) 08/16/21 15:58 Ur Barbiturates Screen NEGATIVE (NEGATIVE) 08/16/21 15:58 Ur Tricyclics Screen NEGATIVE (NEGATIVE) 08/16/21 15:58 Ur Phencyclidine Scrn NEGATIVE (NEGATIVE) 08/16/21 15:58 Ur Amphetamine Screen NEGATIVE (NEGATIVE) 08/16/21 15:58 U Methamphetamines Scrn NEGATIVE (NEGATIVE) 08/16/21 15:58 U Benzodiazepines Scrn NEGATIVE (NEGATIVE) 08/16/21 15:58 Urine Cocaine Screen NEGATIVE (NEGATIVE) 08/16/21 15:58 U Cannabinoids Screen NEGATIVE (NEGATIVE) 08/16/21 15:58 Ethyl Alcohol < 5.0 mg/dL 08/16/21 14:26 HIV 1&2 Antibody Rapid NEGATIVE (NEGATIVE) 08/18/21 04:45 Sepsis Event Note (H) - Evaluation Current Stage of Sepsis: Septic shock Possible source of Sepsis: positive: Unknown - Sepsis Criteria Sepsis Criteria: WBC count greater than 10% bands, SBP drop more than 40mHg, SBP less than 90 mmHg, Renal: urine output less than 0.5ml/kg/hr for 2 hours or cre atinine gr, Hematologic: platelets < 100,000; INR > 1.5, or a PTT>60 seconds
[2021-08-20 21:15] LABS: POTASSIUM 3.6 mmol/L (3.5-5.0)
[2021-08-21] MEDS: VANCOMYCIN INJ 1 GM in SODIUM CHLORIDE 0.9% 250 ML IV SCH ×3 (00:16→16:24)
[2021-08-21] MEDS: SODIUM CHLORIDE FLUSH 0.9% 10 ML SYRINGE IVP SCH ×5 (00:17→20:38)
[2021-08-21] MEDS: ACETAMINOPHEN 325 MG TABLET PO PRN ×5 (00:19→20:11)
[2021-08-21] MEDS: hydrOXYzine PAMOATE 25 MG CAPSULE PO PRN ×3 (00:20→20:11)
[2021-08-21] MEDS: oxyCODONE 5 MG TABLET PO PRN ×5 (00:20→20:11)
[2021-08-21] MEDS: traZODone 50 MG TABLET PO PRN (00:27)
[2021-08-21 05:13] LABS: BASOPHILS % (AUTO) 0.6 %; EOSINOPHILS % (AUTO) 3.1 %; HCT - HEMATOCRIT 34.1 % (42.0-52.0); HGB - HEMOGLOBIN 11.7 g/dL (14.0-18.0); LYMPHOCYTES % (AUTO) 39.4 %; MEAN CORPUSCULAR HEMOGLOBIN 30.7 pg (27.0-31.0); MEAN CORPUSCULAR HGB CONC 34.3 g/dL (32.0-36.0); MEAN CORPUSCULAR VOLUME 89.5 fL (80.0-94.0); MEAN PLATELET VOLUME 9.7 fL (7.4-11.4); NEUTROPHILS % (AUTO) 46.2 %; PLT - PLATELET COUNT 134 10^3/uL (130-450); RED BLOOD COUNT 3.81 10^6/uL (4.70-6.10); RED CELL DISTRIBUTION WIDTH 13.2 % (12.0-15.0); WHITE BLOOD COUNT 7.1 x10^3/uL (4.8-10.8)
[2021-08-21 05:24] LABS: ABNORMAL LYMPHS % (MANUAL) 0 %; BAND NEUTROPHILS % (MANUAL) 0 %; CALCIUM 8.7 mg/dL (8.5-10.3); CREATININE 0.9 mg/dL (0.6-1.2); MAGNESIUM 1.9 mg/dL (1.7-2.8); PHOSPHORUS 2.9 mg/dL (2.5-4.6); POTASSIUM 3.8 mmol/L (3.5-5.0)
[2021-08-21] MEDS: PIPERACILLIN/TAZOBACTAM 3.375 GM in SODIUM CHLORIDE 0.9% MINIBAG 100 ML IV SCH ×3 (06:15→22:16)
[2021-08-21 06:38] LABS: DIFFERENTIAL COMMENT MANUAL DIFFERENTIAL; EOSINOPHILS # (MANUAL) 0.1 10^3/uL (0-0.7); LYMPHOCYTES # (MANUAL) 3.7 10^3/uL (1.5-3.5); LYMPHOCYTES % (MANUAL) 52 %; MONOCYTES # (MANUAL) 0.4 10^3/uL (0.0-1.0); NEUTROPHILS # (MANUAL) 2.9 10^3/uL (1.5-6.6); PLATELET ESTIMATE, MANUAL NORMAL (130-450,000) (NORMAL); RBC MORPHOLOGY (MULTIPLE) NORMAL APPEARANCE (NORMAL)
[2021-08-21] MEDS: DULoxetine 30 MG CAPSULE PO SCH (08:06)
[2021-08-21 16:19] LABS: VANCOMYCIN,TROUGH 14.6 ug/mL (10.0-20.0)
--- NOTE | 2021-08-21 17:38 | PROVIDER PROGRESS NOTE ---
Assessment/Plan - Problem List (1) Sepsis Assessment/Plan: The concern still remains for sepsis given he had nearly 3% bands, thrombocytopenia, and "soft" BP, but vasopressors were able to be stopped 2 days ago evening. He has been on vancomycin and Zosyn. There has been no obvious source of infection. A repeat chest x-ray did not appear to have pneumonia. He described his remote Strep infections to me, source was also unknown. CRP has decreased from 8 to 5 to 2 today. The last Hospitalist spoke with infectious disease at [facility] in [place], and they agree that he should be transferred for further work-up which may include a bone marrow biopsy and Echo/SANTOSH. They asked us to order the cryptococcal antigen which was done. The patient will remain on IV antibiotics. He is transferred out of our ICU. Once a bed is available at [facility] then he will be transferred there or will contact ID again for further recommendations for management here. (2) L Arm pain The inner forarm is tender to touch, no palpable cord. Will eval for a DVT (3) Headache Impression: Improved but ongoing. LP was unremarkable. Head CT showed no evidence of sinusitis, done at admission, 08/16/2021. Suspect MCKINLEY is likely due to the u nderlying sepsis and infection. Continue with Tylenol as needed. (4) PTSD (post-traumatic stress disorder) Impression: Continue Cymbalta and hydroxyzine as needed. (5) Thrombocytopenia Impression: Resolved, his plts improved from 40 to 70 to 134 today. Suspect it was secondary to sepsis. (6) KIM (acute kidney injury) Impression: This has resolved. Renal function is back to baseline. (7) Hyponatremia Impression: This was hypovolemic hyponatremia and has resolved. (8) Septic shock Shock has resolved 2 days ago - Current Meds Current Meds: Current Medications Generic Name Dose Route Start Last Admin Trade Name Freq PRN Reason Stop Dose Admin Acetaminophen 650 mg 08/16/21 17:21 08/21/21 16:13 Acetaminophen 325 Mg Tablet PO 650 mg Q4HR PRN Administration Pain 1 to 4 Duloxetine HCl 30 mg 08/18/21 10:00 08/21/21 08:06 Duloxetine 30 Mg Capsule PO 30 mg DAILY RADHA Administration Hydroxyzine Pamoate 25 mg 08/17/21 10:07 08/21/21 08:05 Hydroxyzine Pamoate 25 Mg Capsule PO 25 mg Q6HR PRN Administration Anxiety Piperacillin Sod/Tazobactam 100 mls @ 25 mls/hr 08/17/21 07:00 08/21/21 16:13 Sod 3.375 gm/ Sodium Chloride IV 25 mls/hr Q8H RADHA Administration Sodium Chloride 500 mls @ 20 mls/hr 08/17/21 03:56 08/21/21 16:58 Normal Saline 0.9% IV Infused Q24H PRN Infusion TKO RATE Vancomycin HCl 1 gm/ Sodium 250 mls @ 167 mls/hr 08/19/21 16:00 08/21/21 16:24 Chloride IV 167 mls/hr Q8H RADHA Administration Oxycodone HCl 5 mg 08/16/21 17:21 08/21/21 16:13 Oxycodone 5 Mg Tablet PO 5 mg Q4HR PRN Administration Pain 5 to 7 Sodium Chloride 10 ml 08/16/21 17:21 08/20/21 05:49 Sodium Chloride Flush 0.9% 10 Ml Syringe IVP 30 ml PRN PRN Administration NEEDED PER PROVIDER ORDERS Sodium Chloride 10 ml 08/17/21 01:00 08/21/21 12:08 Sodium Chloride Flush 0.9% 10 Ml Syringe IVP 10 ml 0100,0900,1700 RADHA Administration Sodium Chloride 2 sprays 08/19/21 06:55 08/19/21 11:09 Sodium Chloride 0.65% Nasal [place]oli ERVIN 2 sprays Q4HR PRN Administration Nasal Congestion Trazodone HCl 100 mg 08/18/21 09:33 08/21/21 00:27 Trazodone 50 Mg Tablet PO 100 mg QPM PRN Administration Insomnia - Lab Result Fish Bone Diagrams: 08/21/21 04:50 08/21/21 04:50 - Additional Planning My Orders: My Active Orders 08/21/21 17:37 Duplex Ext Veins Left [US] Stat 08/22/21 05:00 CRP - C-REACTIVE PROTEIN [CHEM] DAILYLAB Subjective - Subjective Patient Reports: Feeling Better (was able to take a walk in hallway, is less fatigued, has lessened bitemporal headache.) Objective Vital Signs: Vital Signs - 24 hr 08/20/21 08/20/21 08/21/21 19:00 21:00 05:20 Temperature 36.9 C Heart Rate [ 57 L 57 L Monitoring electrodes] Respiratory 14 13 17 Rate Blood Pressure 117/73 130/77 [Right Brachial artery] O2 Saturation 98 96 95 08/21/21 08/21/21 08:03 14:27 Temperature 37 C 36.9 C Heart Rate [ 66 54 L Monitoring electrodes] Respiratory 18 13 Rate Blood Pressure 109/74 120/74 [Right Brachial artery] O2 Saturation 92 95 Oxygen O2 Source Room air I&O (Last 24 Hrs): Intake and Output Totals x24h 08/19/21 08/20/21 08/21/21 23:59 23:59 23:59 Intake Total 3595.813 4723.333 1906.667 Output Total 1850 3325 2150 Balance 5715.217 3262.333 -243.333 General: Alert, Oriented x3 HEENT: EOMI, Mucous membr. moist/pink Neck: Supple, No JVD Neuro: Alert, Non Focal Cardiovascular: Regular rate, No murmurs Respiratory: No respiratory distress, Breath sounds nml Abdomen: Normal bowel sounds, Soft Extremities: No edema, Other (mild tenderness along L inner forearm, no palpable chord, has ecchymosis in antcubital fosssa which is not tender) - Results Results: Laboratory Results WBC 7.1 x10^3/uL (4.8-10.8) 08/21/21 04:50 RBC 3.81 10^6/uL (4.70-6.10) L 08/21/21 04:50 Hgb 11.7 g/dL (14.0-18.0) L 08/21/21 04:50 Hct 34.1 % (42.0-52.0) L 08/21/21 04:50 MCV 89.5 fL (80.0-94.0) 08/21/21 04:50 MCH 30.7 pg (27.0-31.0) 08/21/21 04:50 MCHC 34.3 g/dL (32.0-36.0) 08/21/21 04:50 RDW 13.2 % (12.0-15.0) 08/21/21 04:50 Plt Count 134 10^3/uL (130-450) 08/21/21 04:50 MPV 9.7 fL (7.4-11.4) 08/21/21 04:50 Reticulocyte % (Auto) 0.73 % (0.5-2.3) 08/16/21 14:39 Neut # (Auto) Not Reportable 08/21/21 04:50 Lymph # (Auto) Not Reportable 08/21/21 04:50 [place] # (Auto) Not Reportable 08/21/21 04:50 Eos # (Auto) Not Reportable 08/21/21 04:50 Baso # (Auto) Not Reportable 08/21/21 04:50 Absolute Nucleated RBC Not Reportable 08/21/21 04:50 Total Counted 100 08/21/21 04:50 Band Neuts % (Manual) 0 % (0-10) 08/21/21 04:50 Reactive Lymphs % (Man) 2 % 08/16/21 22:30 Abnorm Lymph % (Manual) 0 % 08/21/21 04:50 Metamyelocytes % 1 % (-0) H 08/20/21 05:55 Nucleated RBC % Not Reportable 08/21/21 04:50 Neutrophils # (Manual) 2.9 10^3/uL (1.5-6.6) 08/21/21 04:50 Lymphocytes # (Manual) 3.7 10^3/uL (1.5-3.5) H 08/21/21 04:50 Monocytes # (Manual) 0.4 10^3/uL (0.0-1.0) 08/21/21 04:50 Eosinophils # (Manual) 0.1 10^3/uL (0-0.7) 08/21/21 04:50 Basophils # (Manual) 0.0 10^3/uL (0-0.1) 08/21/21 04:50 Differential Comment MANUAL DIFFERENTIAL 08/21/21 04:50 Manual Slide Review Indicated 08/16/21 13:40 WBC Morphology NORMAL APPEARANCE (NORMAL) 08/20/21 05:55 Platelet Estimate NORMAL (130-450,000) (NORMAL) 08/21/21 04:50 Platelet Morphology NORMAL APPEARANCE (NORMAL) 08/20/21 05:55 RBC Morph Micro Appear NORMAL APPEARANCE (NORMAL) 08/21/21 04:50 ESR 20 mm/Hr (0-20) 08/16/21 14:38 Absolute Retic 0.031 10^6/uL (0.020-0.110) 08/16/21 14:39 PT 13.7 secs (9.9-12.6) H 08/18/21 07:55 INR 1.2 (0.8-1.2) 08/18/21 07:55 APTT 28.6 secs (24.9-33.3) 08/16/21 14:39 Fibrinogen 510 mg/dL (220-496) H 08/16/21 14:39 D-Dimer 817.5 ng/mL (200.0-255.0) H 08/16/21 14:39 VBG pH 7.415 (7.31-7.41) H 08/20/21 05:55 VBG Total Hgb 12.9 g/dL (12.0-18.0) 08/18/21 12:32 VBG Oxyhemoglobin 78 % (94-100) L 08/18/21 12:32 VBG Carboxyhemoglobin 1.3 % (0-1.5) 08/18/21 12:32 VBG Methemoglobin 0.3 % (0-1.5) 08/18/21 12:32 Ionized Calcium 1.20 mmol/L (1.15-1.33) 08/20/21 05:55 Sodium 142 mmol/L (135-145) 08/21/21 04:50 Potassium 3.8 mmol/L (3.5-5.0) 08/21/21 04:50 Chloride 108 mmol/L (101-111) 08/21/21 04:50 Carbon Dioxide 26 mmol/L (21-32) 08/21/21 04:50 Anion Gap 8.0 (6-13) 08/21/21 04:50 BUN 13 mg/dL (6-20) 08/21/21 04:50 Creatinine 0.9 mg/dL (0.6-1.2) 08/21/21 04:50 Estimated GFR (MDRD) 88 (>89) L 08/21/21 04:50 Glucose 92 mg/dL (70-100) 08/21/21 04:50 Lactic Acid 1.2 mmol/L (0.5-2.2) 08/16/21 22:30 Calcium 8.7 mg/dL (8.5-10.3) 08/21/21 04:50 Phosphorus 2.9 mg/dL (2.5-4.6) 08/21/21 04:50 Magnesium 1.9 mg/dL (1.7-2.8) 08/21/21 04:50 Iron 51 ug/dL (45-182) 08/18/21 04:45 TIBC 185 ug/dL (250-450) L 08/18/21 04:45 % Saturation 28 % (20-50) 08/18/21 04:45 Transferrin 132 mg/dL (180-329) L 08/18/21 04:45 Ferritin 1034.6 ng/mL (23.9-336.2) H 08/18/21 04:45 Total Bilirubin 1.3 mg/dL (0.2-1.0) H 08/18/21 04:45 Direct Bilirubin 0.5 mg/dL (0.1-0.5) 08/18/21 04:45 Indirect Bilirubin 1.6 mg/dL 08/16/21 14:39 GGT 79 IU/L (8-55) H 08/18/21 04:45 AST 63 IU/L (10-42) H 08/18/21 04:45 ALT 51 IU/L (10-60) 08/18/21 04:45 Alkaline Phosphatase 97 IU/L (42-121) 08/18/21 04:45 Lactate Dehydrogenase 174 IU/L (91-225) 08/18/21 04:45 Total Creatine Kinase 80 IU/L (22-269) 08/16/21 13:40 Troponin I High Sens 14.2 ng/L (2.3-19.7) 08/18/21 04:45 C-Reactive Protein 2.8 mg/dL (0-1.0) H 08/21/21 04:50 Total Protein 4.8 g/dL (6.7-8.2) L 08/18/21 04:45 Albumin 2.4 g/dL (3.2-5.5) L 08/18/21 04:45 Globulin 2.4 g/dL (2.1-4.2) 08/18/21 04:45 Albumin/Globulin Ratio 1.2 (1.0-2.2) 08/16/21 13:40 Triglycerides 212 mg/dL (-149) H 08/18/21 04:45 Cholesterol 134 mg/dL (-199) 08/18/21 04:45 LDL Cholesterol, Calc 83 mg/dL (-129) 08/18/21 04:45 VLDL Cholesterol 42 mg/dL 08/18/21 04:45 HDL Cholesterol 9 mg/dL (60-) L 08/18/21 04:45 LDL/HDL Ratio 9.2 (<3.6) 08/18/21 04:45 Cholesterol/HDL Ratio 14.9 (<5.0) 08/18/21 04:45 TSH 1.17 uIU/mL (0.34-5.60) 08/16/21 13:40 Free T4 1.68 ng/dL (0.58-1.64) H 08/18/21 04:45 Cortisol 28.1 ug/dL 08/16/21 13:40 Urine Color YELLOW 08/16/21 15:58 Urine Clarity HAZY (CLEAR) 08/16/21 15:58 Urine pH 6.0 PH (5.0-7.5) 08/16/21 15:58 Ur Specific [place] 1.020 (1.002-1.030) 08/16/21 15:58 Urine Protein 30 mg/dL (NEGATIVE) H 08/16/21 15:58 Urine Glucose (UA) NEGATIVE mg/dL (NEGATIVE) 08/16/21 15:58 Urine Ketones NEGATIVE mg/dL (NEGATIVE) 08/16/21 15:58 Urine Occult Blood MODERATE (NEGATIVE) H 08/16/21 15:58 Urine Nitrite NEGATIVE (NEGATIVE) 08/16/21 15:58 Urine Bilirubin NEGATIVE (NEGATIVE) 08/16/21 15:58 Urine Urobilinogen 2 E.U./dL (NORMAL) H 08/16/21 15:58 Ur Leukocyte Esterase NEGATIVE (NEGATIVE) 08/16/21 15:58 Urine RBC 6-10 /HPF (0-5) H 08/16/21 15:58 Urine WBC 0-3 /HPF (0-3) 08/16/21 15:58 Ur Squamous Epith Cells NONE SEEN (<= Few) 08/16/21 15:58 Urine Bacteria None Seen /HPF (None Seen) 08/16/21 15:58 Urine Culture Comments NOT INDICATED 08/16/21 15:58 CSF Color COLORLESS (COLORLESS) 08/16/21 16:07 CSF Clarity CLEAR (CLEAR) 08/16/21 16:07 Xanthrochromic ABSENT (ABSENT) 08/16/21 16:07 CSF WBC 1 /mm^3 (0-5) 08/16/21 16:07 CSF RBC 3 /mm^3 (0-1) H 08/16/21 16:07 CSF Cell Count Tube # CSF TUBE# 3 08/16/21 16:07 CSF Glucose 78 mg/dL (45-70) H 08/16/21 16:07 CSF Total Protein 40 mg/dL (15-45) 08/16/21 16:07 Nasal Adenovirus (PCR) NOT DETECTED 08/16/21 13:28 Nasal B. parapertussis DNA (PCR) NOT DETECTED 08/16/21 13:28 Nasal Coronavir 229E PCR NOT DETECTED 08/16/21 13:28 Nasal Coronavir HKU1 PCR NOT DETECTED 08/16/21 13:28 Nasal Coronavir NL63 PCR NOT DETECTED 08/16/21 13:28 Nasal Coronavir OC43 PCR NOT DETECTED 08/16/21 13:28 Nasal Enterovir/Rhinovir PCR NOT DETECTED 08/16/21 13:28 Nasal Influenza B PCR NOT DETECTED 08/16/21 13:28 Nasal Influenza A PCR NOT DETECTED 08/16/21 13:28 Nasal Parainfluen 1 PCR NOT DETECTED 08/16/21 13:28 Nasal Parainfluen 2 PCR NOT DETECTED 08/16/21 13:28 Nasal Parainfluen 3 PCR NOT DETECTED 08/16/21 13:28 Nasal Parainfluen 4 PCR NOT DETECTED 08/16/21 13:28 Nasal RSV (PCR) NOT DETECTED 08/16/21 13:28 Nasal Screen MRSA (PCR) NEGATIVE (NEGATIVE) 08/17/21 00:44 Nasal B.pertussis DNA PCR NOT DETECTED 08/16/21 13:28 Nasal C.pneumoniae (PCR) NOT DETECTED 08/16/21 13:28 Ervin Human Metapneumo PCR NOT DETECTED 08/16/21 13:28 Nasal M.pneumoniae (PCR) NOT DETECTED 08/16/21 13:28 Nasal SARS-CoV-2 (PCR) NOT DETECTED 08/16/21 13:28 Last Dose Date Not Reportable 08/21/21 16:06 Last Dose Time Not Reportable 08/21/21 16:06 Vancomycin Trough 14.6 ug/mL (10.0-20.0) 08/21/21 16:06 Urine Opiates Screen NEGATIVE (NEGATIVE) 08/16/21 15:58 Ur Oxycodone Screen NEGATIVE (NEGATIVE) 08/16/21 15:58 Urine Methadone Screen NEGATIVE (NEGATIVE) 08/16/21 15:58 Ur Propoxyphene Screen NEGATIVE (NEGATIVE) 08/16/21 15:58 Ur Barbiturates Screen NEGATIVE (NEGATIVE) 08/16/21 15:58 Ur Tricyclics Screen NEGATIVE (NEGATIVE) 08/16/21 15:58 Ur Phencyclidine Scrn NEGATIVE (NEGATIVE) 08/16/21 15:58 Ur Amphetamine Screen NEGATIVE (NEGATIVE) 08/16/21 15:58 U Methamphetamines Scrn NEGATIVE (NEGATIVE) 08/16/21 15:58 U Benzodiazepines Scrn NEGATIVE (NEGATIVE) 08/16/21 15:58 Urine Cocaine Screen NEGATIVE (NEGATIVE) 08/16/21 15:58 U Cannabinoids Screen NEGATIVE (NEGATIVE) 08/16/21 15:58 Ethyl Alcohol < 5.0 mg/dL 08/16/21 14:26 HIV 1&2 Antibody Rapid NEGATIVE (NEGATIVE) 08/18/21 04:45 Sepsis Event Note (H) - Evaluation Current Stage of Sepsis: Septic shock Possible source of Sepsis: positive: Unknown - Sepsis Criteria Sepsis Criteria: WBC count greater than 10% bands, SBP drop more than 40mHg, SBP less than 90 mmHg, Renal: urine output less than 0.5ml/kg/hr for 2 hours or creatinine gr, Hematologic: platelets < 100,000; INR > 1.5, or a PTT>60 seconds
--- NOTE | 2021-08-21 19:49 | Ultrasound Report ---
PROCEDURE: Duplex Ext Veins Left INDICATIONS: Left arm pain, evaluate for DVT TECHNIQUE: Real-time imaging, as well as color and pulse Doppler interrogation, were performed of the left upper extremity deep veins from the internal jugular to the cephalic vein COMPARISON: None. FINDINGS: The deep veins are normally compressible, and free of intraluminal thrombus. Color and pu lse Doppler demonstrate normal phasic intraluminal flow. There is normal augmentation response to di stal compression maneuver. IMPRESSION: No sonographic evidence of DVT. Reviewed by: Gabriele Starks MD on 08/21/2021 7:48 PM PST Approved by: Gabriele Starks MD on 08/21/2021 7:48 PM PST Station ID: [id number]
[2021-08-21] MEDS: SODIUM CHLORIDE FLUSH 0.9% 10 ML SYRINGE IVP PRN (20:38)
[2021-08-22] MEDS: traZODone 50 MG TABLET PO PRN (00:46)
[2021-08-22] MEDS: ACETAMINOPHEN 325 MG TABLET PO PRN ×5 (00:46→19:45)
[2021-08-22] MEDS: VANCOMYCIN INJ 1 GM in SODIUM CHLORIDE 0.9% 250 ML IV SCH ×3 (00:46→17:45)
[2021-08-22] MEDS: SODIUM CHLORIDE FLUSH 0.9% 10 ML SYRINGE IVP SCH ×3 (00:47→18:20)
[2021-08-22] MEDS: oxyCODONE 5 MG TABLET PO PRN ×5 (00:47→19:45)
[2021-08-22] MEDS: PIPERACILLIN/TAZOBACTAM 3.375 GM in SODIUM CHLORIDE 0.9% MINIBAG 100 ML IV SCH ×3 (06:27→22:10)
[2021-08-22] MEDS: SODIUM CHLORIDE FLUSH 0.9% 10 ML SYRINGE IVP PRN (06:28)
[2021-08-22] MEDS: DULoxetine 30 MG CAPSULE PO SCH (08:46)
[2021-08-22] MEDS: hydrOXYzine PAMOATE 25 MG CAPSULE PO PRN ×2 (08:54→19:45)
--- NOTE | 2021-08-22 17:39 | PROVIDER PROGRESS NOTE ---
Assessment/Plan - Problem List (1) Sepsis Assessment/Plan: Septic shock has resolved. We are treating him for presumed sepsis since he had fever, elevated WBC, nearly 30% bands, thrombocytopenia, and hypotension, needed vasopressors. His signs of infection have improved significantly: Mo more fever, White blood count has normalized, bands have resolved, CRP is normal. The last Hospitalist spoke with infectious disease at [facility] in [place], cryptoccal Ag was sent off and is still pending. HIV was sent off and is negative. We did not have Echo here to eval for endocarditis, over this holiday week. Today I personally spoke to Dr. Caols Turner, infectious disease (he is also a personal friend of the patient and his ). Dr. Turner and I went over the entire chart and all results. Dr. Turner feels that the patient had septic shock of unknown cause with DIC (given the thrombocytopenia, high fibrinogen and high D-dimer). Dr. Turner recommends that the patient be given a 7-day course of empiric antibiotics and then can be discharged home, no transfer is needed. He recommends that the patient be seen by his PCP and then an Infectious Disease specialist in the next week. There are openings at the [facility] at [place] in [place]. This information was giv en to our manager loss prevention and she made him an appointment for August 30, 2021 at 10 AM at the [facility]. [phone]. I then went over all the above with the patient at bedside We will plan his discharge after the completion of a 7-day course of treatment; his last IV dose will be started tomorrow at 4 PM. (2) Headache Impression: Improved but intermittentlyongoing. LP was unremarkable. Head CT showed no evidence of sinusitis, done at admission, 08/16/2021. Suspect MCKINLEY is likely due to the underlying sepsis and infection and Hx of migraines. Continue with Tylenol as needed. (3) PTSD (post-traumatic stress disorder) Impression: Continue Cymbalta and hydroxyzine as needed. (4) Thrombocytopenia Impression: Resolved, his plts improved from 40 to 70 to 134 today. Suspect it was secondary to sepsis. (5) KIM (acute kidney injury) Impression: This has resolved. Renal function is back to baseline. (6) Hyponatremia Impression: This was hypovolemic hyponatremia and has resolved. (7) Septic shock Shock has resolved 2 days ago (8) L Arm pain The inner forarm was tender to touch yesterday, there was no palpable cord. US eval for a DVT was done and showed no DVT. - Current Meds Current Meds: Current Medications Generic Name Dose Route Start Last Admin Trade Name Freq PRN Reason Stop Dose Admin Acetaminophen 650 mg 08/16/21 17:21 08/22/21 15:05 Acetaminophen 325 Mg Tablet PO 650 mg Q4HR PRN Administration Pain 1 to 4 Duloxetine HCl 30 mg 08/18/21 10:00 08/22/21 08:46 Duloxetine 30 Mg Capsule PO 30 mg DAILY RADHA Administration Hydroxyzine Pamoate 25 mg 08/17/21 10:07 08/22/21 08:54 Hydroxyzine Pamoate 25 Mg Capsule PO 25 mg Q6HR PRN Administration Anxiety Piperacillin Sod/Tazobactam 100 mls @ 25 mls/hr 08/17/21 07:00 08/22/21 15:06 Sod 3.375 gm/ Sodium Chloride IV 08/23/21 18:00 25 mls/hr Q8H RADHA Administration Sodium Chloride 500 mls @ 20 mls/hr 08/17/21 03:56 08/21/21 16:58 Normal Saline 0.9% IV Infused Q24H PRN Infusion TKO RATE Vancomycin HCl 1 gm/ Sodium 250 mls @ 167 mls/hr 08/19/21 16:00 08/22/21 10:20 Chloride IV 08/23/21 18:00 Infused Q8H RADHA Infusion Oxycodone HCl 5 mg 08/16/21 17:21 08/22/21 15:05 Oxycodone 5 Mg Tablet PO 5 mg Q4HR PRN Administration Pain 5 to 7 Sodium Chloride 10 ml 08/16/21 17:21 08/22/21 06:28 Sodium Chloride Flush 0.9% 10 Ml Syringe IVP 10 ml PRN PRN Administration NEEDED PER PROVIDER ORDERS Sodium Chloride 10 ml 08/17/21 01:00 08/22/21 06:28 Sodium Chloride Flush 0.9% 10 Ml Syringe IVP 10 ml 0100,0900,1700 RADHA Administration Sodium Chloride 10 ml 08/16/21 22:35 08/21/21 20:38 Sodium Chloride Flush 0.9% 10 Ml Syringe IVP 10 ml PRN PRN Administration NEEDED PER PROVIDER ORDERS Sodium Chloride 2 sprays 08/19/21 06:55 08/19/21 11:09 Sodium Chloride 0.65% Nasal Alma ERVIN 2 sprays Q4HR PRN Administration Nasal Congestion Trazodone HCl 100 mg 08/18/21 09:33 08/22/21 00:46 Trazodone 50 Mg Tablet PO 100 mg QPM PRN Administration Insomnia - Lab Result Fish Bone Diagrams: 08/21/21 04:50 08/21/21 04:50 - Additional Planning My Orders: My Active Orders 08/21/21 22:02 Heparin Flush [Heparin Sodium] 30 - 50 unit IVP PRN PRN Subjective - Subjective Patient Reports: Feeling Better, Resting Comfortably, No Complaints Objective Vital Signs: Vital Signs - 24 hr 08/21/21 08/22/21 08/22/21 23:23 06:00 16:34 Temperature 37.0 C 37.0 C 36.9 C Heart Rate [ 51 L 51 L 55 L Monitoring electrodes] Respiratory 20 20 18 Rate Blood Pressure 117/68 114/64 112/66 [Right Brachial artery] O2 Saturation 94 94 96 Oxygen O2 Source Room air I&O (Last 24 Hrs): Intake and Output Totals x24h 08/20/21 08/21/21 08/22/21 23:59 23:59 23:59 Intake Total 4723.333 2776.667 1610 Output Total 3325 2375 1200 Balance 1398.333 401.667 410 General: Alert, Oriented x3 HEENT: Mucous membr. moist/pink Neck: Supple Neuro: Alert, Non Focal Cardiovascular: Regular rate Respiratory: No respiratory distress, Breath sounds nml Abdomen: Soft Extremities: No edema - Results Results: Laboratory Results WBC 7.1 x10^3/uL (4.8-10.8) 08/21/21 04:50 RBC 3.81 10^6/uL (4.70-6.10) L 08/21/21 04:50 Hgb 11.7 g/dL (14.0-18.0) L 08/21/21 04:50 Hct 34.1 % (42.0-52.0) L 08/21/21 04:50 MCV 89.5 fL (80.0-94.0) 08/21/21 04:50 MCH 30.7 pg (27.0-31.0) 08/21/21 04:50 MCHC 34.3 g/dL (32.0-36.0) 08/21/21 04:50 RDW 13.2 % (12.0-15.0) 08/21/21 04:50 Plt Count 134 10^3/uL (130-450) 08/21/21 04:50 MPV 9.7 fL (7.4-11.4) 08/21/21 04:50 Reticulocyte % (Auto) 0.73 % (0.5-2.3) 08/16/21 14:39 Neut # (Auto) Not Reportable 08/21/21 04:50 Lymph # (Auto) Not Reportable 08/21/21 04:50 Saline # (Auto) Not Reportable 08/21/21 04:50 Eos # (Auto) Not Reportable 08/21/21 04:50 Baso # (Auto) Not Reportable 08/21/21 04:50 Absolute Nucleated RBC Not Reportable 08/21/21 04:50 Total Counted 100 08/21/21 04:50 Band Neuts % (Manual) 0 % (0-10) 08/21/21 04:50 Reactive Lymphs % (Man) 2 % 08/16/21 22:30 Abnorm Lymph % (Manual) 0 % 08/21/21 04:50 Metamyelocytes % 1 % (-0) H 08/20/21 05:55 Nucleated RBC % Not Reportable 08/21/21 04:50 Neutrophils # (Manual) 2.9 10^3/uL (1.5-6.6) 08/21/21 04:50 Lymphocytes # (Manual) 3.7 10^3/uL (1.5-3.5) H 08/21/21 04:50 Monocytes # (Manual) 0.4 10^3/uL (0.0-1.0) 08/21/21 04:50 Eosinophils # (Manual) 0.1 10^3/uL (0-0.7) 08/21/21 04:50 Basophils # (Manual) 0.0 10^3/uL (0-0.1) 08/21/21 04:50 Differential Comment MANUAL DIFFERENTIAL 08/21/21 04:50 Manual Slide Review Indicated 08/16/21 13:40 WBC Morphology NORMAL APPEARANCE (NORMAL) 08/20/21 05:55 Platelet Estimate NORMAL (130-450,000) (NORMAL) 08/21/21 04:50 Platelet Morphology NORMAL APPEARANCE (NORMAL) 08/20/21 05:55 RBC Morph Micro Appear NORMAL APPEARANCE (NORMAL) 08/21/21 04:50 ESR 20 mm/Hr (0-20) 08/16/21 14:38 Absolute Retic 0.031 10^6/uL (0.020-0.110) 08/16/21 14:39 PT 13.7 secs (9.9-12.6) H 08/18/21 07:55 INR 1.2 (0.8-1.2) 08/18/21 07:55 APTT 28.6 secs (24.9-33.3) 08/16/21 14:39 Fibrinogen 510 mg/dL (220-496) H 08/16/21 14:39 D-Dimer 817.5 ng/mL (200.0-255.0) H 08/16/21 14:39 VBG pH 7.415 (7.31-7.41) H 08/20/21 05:55 VBG Total Hgb 12.9 g/dL (12.0-18.0) 08/18/21 12:32 VBG Oxyhemoglobin 78 % (94-100) L 08/18/21 12:32 VBG Carboxyhemoglobin 1.3 % (0-1.5) 08/18/21 12:32 VBG Methemoglobin 0.3 % (0-1.5) 08/18/21 12:32 Ionized Calcium 1.20 mmol/L (1.15-1.33) 08/20/21 05:55 Sodium 142 mmol/L (135-145) 08/21/21 04:50 Potassium 3.8 mmol/L (3.5-5.0) 08/21/21 04:50 Chloride 108 mmol/L (101-111) 08/21/21 04:50 Carbon Dioxide 26 mmol/L (21-32) 08/21/21 04:50 Anion Gap 8.0 (6-13) 08/21/21 04:50 BUN 13 mg/dL (6-20) 08/21/21 04:50 Creatinine 0.9 mg/dL (0.6-1.2) 08/21/21 04:50 Estimated GFR (MDRD) 88 (>89) L 08/21/21 04:50 Glucose 92 mg/dL (70-100) 08/21/21 04:50 Lactic Acid 1.2 mmol/L (0.5-2.2) 08/16/21 22:30 Calcium 8.7 mg/dL (8.5-10.3) 08/21/21 04:50 Phosphorus 2.9 mg/dL (2.5-4.6) 08/21/21 04:50 Magnesium 1.9 mg/dL (1.7-2.8) 08/21/21 04:50 Iron 51 ug/dL (45-182) 08/18/21 04:45 TIBC 185 ug/dL (250-450) L 08/18/21 04:45 % Saturation 28 % (20-50) 08/18/21 04:45 Transferrin 132 mg/dL (180-329) L 08/18/21 04:45 Ferritin 1034.6 ng/mL (23.9-336.2) H 08/18/21 04:45 Total Bilirubin 1.3 mg/dL (0.2-1.0) H 08/18/21 04:45 Direct Bilirubin 0.5 mg/dL (0.1-0.5) 08/18/21 04:45 Indirect Bilirubin 1.6 mg/dL 08/16/21 14:39 GGT 79 IU/L (8-55) H 08/18/21 04:45 AST 63 IU/L (10-42) H 08/18/21 04:45 ALT 51 IU/L (10-60) 08/18/21 04:45 Alkaline Phosphatase 97 IU/L (42-121) 08/18/21 04:45 Lactate Dehydrogenase 174 IU/L (91-225) 08/18/21 04:45 Total Creatine Kinase 80 IU/L (22-269) 08/16/21 13:40 Troponin I High Sens 14.2 ng/L (2.3-19.7) 08/18/21 04:45 C-Reactive Protein 1.6 mg/dL (0-1.0) H 08/22/21 06:20 Total Protein 4.8 g/dL (6.7-8.2) L 08/18/21 04:45 Albumin 2.4 g/dL (3.2-5.5) L 08/18/21 04:45 Globulin 2.4 g/dL (2.1-4.2) 08/18/21 04:45 Albumin/Globulin Ratio 1.2 (1.0-2.2) 08/16/21 13:40 Triglycerides 212 mg/dL (-149) H 08/18/21 04:45 Cholesterol 134 mg/dL (-199) 08/18/21 04:45 LDL Cholesterol, Calc 83 mg/dL (-129) 08/18/21 04:45 VLDL Cholesterol 42 mg/dL 08/18/21 04:45 HDL Cholesterol 9 mg/dL (60-) L 08/18/21 04:45 LDL/HDL Ratio 9.2 (<3.6) 08/18/21 04:45 Cholesterol/HDL Ratio 14.9 (<5.0) 08/18/21 04:45 TSH 1.17 uIU/mL (0.34-5.60) 08/16/21 13:40 Free T4 1.68 ng/dL (0.58-1.64) H 08/18/21 04:45 Cortisol 28.1 ug/dL 08/16/21 13:40 Urine Color YELLOW 08/16/21 15:58 Urine Clarity HAZY (CLEAR) 08/16/21 15:58 Urine pH 6.0 PH (5.0-7.5) 08/16/21 15:58 Ur Specific Lorimor 1.020 (1.002-1.030) 08/16/21 15:58 Urine Protein 30 mg/dL (NEGATIVE) H 08/16/21 15:58 Urine Glucose (UA) NEGATIVE mg/dL (NEGATIVE) 08/16/21 15:58 Urine Ketones NEGATIVE mg/dL (NEGATIVE) 08/16/21 15:58 Urine Occult Blood MODERATE (NEGATIVE) H 08/16/21 15:58 Urine Nitrite NEGATIVE (NEGATIVE) 08/16/21 15:58 Urine Bilirubin NEGATIVE (NEGATIVE) 08/16/21 15:58 Urine Urobilinogen 2 E.U./dL (NORMAL) H 08/16/21 15:58 Ur Leukocyte Esterase NEGATIVE (NEGATIVE) 12/24/21 15:58 Urine RBC 6-10 /HPF (0-5) H 08/16/21 15:58 Urine WBC 0-3 /HPF (0-3) 08/16/21 15:58 Ur Squamous Epith Cells NONE SEEN (<= Few) 08/16/21 15:58 Urine Bacteria None Seen /HPF (None Seen) 08/16/21 15:58 Urine Culture Comments NOT INDICATED 08/16/21 15:58 CSF Color COLORLESS (COLORLESS) 08/16/21 16:07 CSF Clarity CLEAR (CLEAR) 08/16/21 16:07 Xanthrochromic ABSENT (ABSENT) 08/16/21 16:07 CSF WBC 1 /mm^3 (0-5) 08/16/21 16:07 CSF RBC 3 /mm^3 (0-1) H 08/16/21 16:07 CSF Cell Count Tube # CSF TUBE# 3 08/16/21 16:07 CSF Glucose 78 mg/dL (45-70) H 08/16/21 16:07 CSF Total Protein 40 mg/dL (15-45) 08/16/21 16:07 Nasal Adenovirus (PCR) NOT DETECTED 08/16/21 13:28 Nasal B. parapertussis DNA (PCR) NOT DETECTED 08/16/21 13:28 Nasal Coronavir 229E PCR NOT DETECTED 08/16/21 13:28 Nasal Coronavir HKU1 PCR NOT DETECTED 08/16/21 13:28 Nasal Coronavir NL63 PCR NOT DETECTED 08/16/21 13:28 Nasal Coronavir OC43 PCR NOT DETECTED 08/16/21 13:28 Nasal Enterovir/Rhinovir PCR NOT DETECTED 08/16/21 13:28 Nasal Influenza B PCR NOT DETECTED 08/16/21 13:28 Nasal Influenza A PCR NOT DETECTED 08/16/21 13:28 Nasal Parainfluen 1 PCR NOT DETECTED 08/16/21 13:28 Nasal Parainfluen 2 PCR NOT DETECTED 08/16/21 13:28 Nasal Parainfluen 3 PCR NOT DETECTED 08/16/21 13:28 Nasal Parainfluen 4 PCR NOT DETECTED 08/16/21 13:28 Nasal RSV (PCR) NOT DETECTED 08/16/21 13:28 Nasal Screen MRSA (PCR) NEGATIVE (NEGATIVE) 08/17/21 00:44 Nasal B.pertussis DNA PCR NOT DETECTED 08/16/21 13:28 Nasal C.pneumoniae (PCR) NOT DETECTED 08/16/21 13:28 Ervin Human Metapneumo PCR NOT DETECTED 08/16/21 13:28 Nasal M.pneumoniae (PCR) NOT DETECTED 08/16/21 13:28 Nasal SARS-CoV-2 (PCR) NOT DETECTED 08/16/21 13:28 Last Dose Date Not Reportable 08/21/21 16:06 Last Dose Time Not Reportable 08/21/21 16:06 Vancomycin Trough 14.6 ug/mL (10.0-20.0) 08/21/21 16:06 Urine Opiates Screen NEGATIVE (NEGATIVE) 08/16/21 15:58 Ur Oxycodone Screen NEGATIVE (NEGATIVE) 08/16/21 15:58 Urine Methadone Screen NEGATIVE (NEGATIVE) 08/16/21 15:58 Ur Propoxyphene Screen NEGATIVE (NEGATIVE) 08/16/21 15:58 Ur Barbiturates Screen NEGATIVE (NEGATIVE) 08/16/21 15:58 Ur Tricyclics Screen NEGATIVE (NEGATIVE) 08/16/21 15:58 Ur Phencyclidine Scrn NEGATIVE (NEGATIVE) 08/16/21 15:58 Ur Amphetamine Screen NEGATIVE (NEGATIVE) 08/16/21 15:58 U Methamphetamines Scrn NEGATIVE (NEGATIVE) 08/16/21 15:58 U Benzodiazepines Scrn NEGATIVE (NEGATIVE) 08/16/21 15:58 Urine Cocaine Screen NEGATIVE (NEGATIVE) 08/16/21 15:58 U Cannabinoids Screen NEGATIVE (NEGATIVE) 08/16/21 15:58 Ethyl Alcohol < 5.0 mg/dL 08/16/21 14:26 HIV 1&2 Antibody Rapid NEGATIVE (NEGATIVE) 08/18/21 04:45 Sepsis Event Note (H) - Evaluation Current Stage of Sepsis: Septic shock Possible source of Sepsis: positive: Unknown - Sepsis Criteria Sepsis Criteria: WBC count greater than 10% bands, SBP drop more than 40mHg, SBP less than 90 mmHg, Renal: urine output less than 0.5ml/kg/hr for 2 hours or creatinine gr, Hematologic: platelets < 100,000; INR > 1.5, or a PTT>60 seconds
[2021-08-23] MEDS: oxyCODONE 5 MG TABLET PO PRN ×4 (00:29→16:12)
[2021-08-23] MEDS: ACETAMINOPHEN 325 MG TABLET PO PRN ×4 (00:29→16:12)
[2021-08-23] MEDS: traZODone 50 MG TABLET PO PRN (00:29)
[2021-08-23] MEDS: SODIUM CHLORIDE FLUSH 0.9% 10 ML SYRINGE IVP SCH ×3 (00:30→17:59)
[2021-08-23] MEDS: VANCOMYCIN INJ 1 GM in SODIUM CHLORIDE 0.9% 250 ML IV SCH ×3 (00:30→16:18)
[2021-08-23] MEDS: PIPERACILLIN/TAZOBACTAM 3.375 GM in SODIUM CHLORIDE 0.9% MINIBAG 100 ML IV SCH ×2 (05:46→13:02)
[2021-08-23] MEDS: DULoxetine 30 MG CAPSULE PO SCH (08:09)
[2021-08-23] MEDS: hydrOXYzine PAMOATE 25 MG CAPSULE PO PRN ×2 (08:09→16:12)
[2021-08-23 08:46] LABS: BASOPHILS # (AUTO) 0.1 10^3/uL (0.0-0.1); BASOPHILS % (AUTO) 0.9 %; EOSINOPHILS # (AUTO) 0.2 10^3/uL (0.0-0.7); EOSINOPHILS % (AUTO) 2.6 %; HCT - HEMATOCRIT 37.1 % (42.0-52.0); HGB - HEMOGLOBIN 12.5 g/dL (14.0-18.0); LYMPHOCYTES # (AUTO) 2.1 10^3/uL (1.5-3.5); LYMPHOCYTES % (AUTO) 24.5 %; MEAN CORPUSCULAR HEMOGLOBIN 30.4 pg (27.0-31.0); MEAN CORPUSCULAR HGB CONC 33.7 g/dL (32.0-36.0); MEAN CORPUSCULAR VOLUME 90.3 fL (80.0-94.0); MEAN PLATELET VOLUME 9.2 fL (7.4-11.4); MONOCYTES # (AUTO) 0.6 10^3/uL (0.0-1.0); MONOCYTES % (AUTO) 7.5 %; NEUTROPHILS # (AUTO) 4.6 10^3/uL (1.5-6.6); NEUTROPHILS % (AUTO) 53.9 %; PLT - PLATELET COUNT 242 10^3/uL (130-450); RED BLOOD COUNT 4.11 10^6/uL (4.70-6.10); RED CELL DISTRIBUTION WIDTH 13.5 % (12.0-15.0); WHITE BLOOD COUNT 8.5 x10^3/uL (4.8-10.8)
--- NOTE | 2021-08-23 09:16 | Discharge Plan ---
Discharge Plan Problem Reviewed?: Yes Disposition: Home, Self Care Condition: Stable Prescriptions: oxyCODONE [Roxicodone] 5 mg PO Q4-6H PRN #5 tablet PRN Reason: Severe Pain hydrOXYzine PAMOATE [Vistaril] 25 mg PO Q6H PRN #7 cap PRN Reason: Anxiety Diet: Regular Activity Restrictions: Activity as Tolerated Shower Restrictions: No Driving Restrictions: No Health Concerns: You were hospitalized, critically ill in the ICU, being treated for a presumed bacterial infection and the source was unknown. You have completed a full 7-day course of very strong IV antibiotics. After discussion and recommendations from Infectious Disease specialist, Dr. Calos Turner, the plan is to have you be seen by a new Primary Care Provider on August 30, 2021, in the [facility] at [facility] in [place], [place] and following that, to have a referral to their Infectious Disease department. We were able to complete the Echocardiogram while you were here, but a bone marrow biopsy, if still planned, would have to be done at a specialized, higher level of care center such as [facility]. A discharge summary is being provided for you to take to the providers on your August 30 and other medical appointments. Please resume all your usual pre-hospital medications, stay well hydrated and follow standard current precautions. Plan of Treatment: As above. Care Goals: Improvement in symptoms and stabilization are the goals. Assessment: The patient understands and is agreeable with the plan. Additional Instructions or Follow Up instructions: At your request, several tablets of Vistaril to take if you have severe anxiety, and Oxycodone to take if you have severe pain, have been electronically prescribed for you and sent to your [facility] in [place]. No Smoking: If you smoke, Please STOP! Call for help.
--- NOTE | 2021-08-23 13:07 | DISCHARGE SUMMARY ---
Discharge Summary Admit Date: 08/16/21 Discharge Date: 08/23/21 Discharging Provider: Dr Venice Estarda Primary Care Provider: Dr Calos Turner and [facility] Code Status: Attempt Resuscitation Condition at Discharge: Fair Discharge Disposition: 01 Home, Self Care - DIAGNOSES Admission Diagnoses: Septic shock with DIC PTSD Migraine headaches - HPI History of Present Illness: From the admission H&P of Ciro Chaney NP: This is a 55-year-old gentleman with a medical history significant of anxiety, PTSD, panicky symptoms, prior alcohol abuse and quit alcohol one year ago who present ER complain of headache, neck pain, whole body ache and feeling of malaise. He report he had fever at 100.6 with chill at home. He has poor appetite, did not drink enough fluid and over the last 3 days he had body aches, headache behind bilateral eyes, light sensitivity, neck pain, joint aches, nausea, vomiting, malaise. He reports he has hx of sepsis without known infectious source. He usually runs low blood pressure at home, about 100/60. His PCP tried medication for him for his low blood pressure, but he could not tolerate the medication, and he does not remember the medication name. He reports he had no sick contacts, no travel out of the country. He has been immunized against Covid. Pt denies chest pain, shortness of breath or N/V/D. In ER pt was found to have low blood pressure and was afebrile. Initially his BP was 80/40, after IVF, his BP blood lilly to 94/53. WBC and lactic acid were in normal range. Plts low at 84, CRP high at 21. Because he complained of headache and neck pain, he underwent Lumbar puncture and CSF staining and culture. The csf fluid had WBC of 1, and glucose is 78. CSF preliminary culture showed no organisms. CTA of chest, CT of head and abdomen and CXR all are negative for acute process. ER started him on empiric antibiotics using iv Rocephin and Vancomycin and started with intravenous fluids of 2 liters. Given above medical conditions, Hospitalist team was consulted for admission. I discussed the care goal with the patient, patient hopes to be Full Code. - HOSPITAL COURSE Hospital Course: (1) Septic shock On his first evening, his blood pressure dropped into the 80s and he appeared toxic and complained of a generalized malaise, joint aches and diarrhea. He had a temperature of 39.2 C and heart rate of 113 and low urine output. He was moved to the ICU, and aggressive iv fluids and Levophed were started. He was put on Zosyn and iv Vanco q8h. He required 3 days of vasopressors in the ICU. On his 2nd day, his labs worsened and showed WBC 11.5, plts 60, fibrinogen 510, D-dimer 817, CRP still 21 and WBC was still normal but his Bands lilly to 28%. He never had schistocytes. There remained no obvious source of infection: there was no rash or further diarrhea, all cultures were neg, a repeat CXR was unremarkable. The Hospitalist spoke with Infectious Disease, Dr Calos Turner, at [facility] in [place] who agreed that he should be transferred for further work-up which would include Echo or [facility] and a bone marrow biopsy. They recommended a cryptococcal antigen be sent off, which was done and results are still pending at the time of discharge. An open bed never became available at [facility], and he slowly improved, started ambulating for activity. His CRP 18>> 9>> 5>> 2>> 1.6, Bands dropped, WBC normal by Day #3, plts recovered 42>> 76>> 134>> 242. An Echo was done here that showed no sign of endocarditis. His HIV test was neg. The respiratory PCR test was all neg. MRSA swab was neg. The Hospitalist spoke to ID, Dr Turner, again who recommended that the patient complete a 7-day course of antibiotics and be discharged, with F/U at the [facility] and then the ID clinic. Dr Turner was made aware that the patient has a dog, a cat and a horse. The patient received an appointment with a new PCP at [facility] for Aug 30, 2021. (2) DIC He had DIC, as shown in sequential labs above, which resolved. (3) KIM (acute kidney injury) Admission creat of 1.4 was back to normal by Day #2, after getting iv fluids. (4) Hyponatremia This was hypovolemic hyponatremia. His admission Na of 126 improved daily with iv fluids >> 130>> 135 and remained normal. (5) Headache The patient has a Hx of migraines. He had a different mild, pressure headache that he described every day. He got Tylenol and Oxycodone as needed. He requested some Oxycodone for discharge. (6) PTSD (post-traumatic stress disorder) We continued his Cymbalta and Trazadone and ordered Vistaril prn anxiety/panic feelings while here. He requested some Vistaril for discharge. - ALLERGIES Allergies/Adverse Reactions: Allergies Allergy/AdvReac Type Severity Reaction Status Date / Time No Known Drug Allergies Allergy Verified 08/07/21 13:58 - MEDICATIONS Home Medications: Ambulatory Orders Medication Instructions Recorded Confirmed DULoxetine [Cymbalta] 30 mg PO DAILY 08/17/21 08/17/21 Ondansetron Odt [Zofran Odt] 4 mg TL Q6H PRN 08/17/21 08/17/21 Sumatriptan Succinate [Imitrex] 100 mg PO DAILY PRN 08/17/21 08/17/21 Trazodone HCl 100 mg PO QPM PRN 08/17/21 08/17/21 hydrOXYzine PAMOATE [Vistaril] 25 mg PO Q6H PRN #7 cap 08/23/21 oxyCODONE [Roxicodone] 5 mg PO Q4-6H PRN #5 tablet 08/23/21 - PHYSICAL EXAM AT DISCHARGE General Appearance: positive: No acute distress, Alert Eyes Bilateral: positive: Normal inspection, EOMI ENT: positive: ENT inspection nml, No signs of dehydration Neck: positive: Nml inspection, No JVD Respiratory: positive: No respiratory distress, Breath sounds nml Cardiovascular: positive: Regular rate & rhythm, No murmur Abdomen: positive: Non-tender, No organomegaly, Nml bowel sounds, No distention Skin: positive: No rash, Warm, Dry Extremities: positive: Non-tender, No pedal edema, Other Neurologic/Psychiatric: positive: Oriented x3, Motor nml, Sensation nml - LABS Result Diagrams: 08/23/21 08:23 08/21/21 04:50 - DIAGNOSTIC IMAGING Diagnostic Imaging Results: Final report reviewed - SEPSIS Current Stage of Sepsis: Septic shock Possible source of Sepsis: Unknown Sepsis Criteria: Recorded Temperature greater than 38.3C or Less than 36C, Recorded Heart Rate greater than 90 bpm, WBC count greater than 10% bands, SBP drop more than 40mHg, SBP less than 90 mmHg, Renal: urine output less than 0.5ml/kg/hr for 2 hours or creatinine gr, Hematologic: platelets < 100,000; INR > 1.5, or a PTT>60 seconds - FOLLOW UP Follow Up: See new PCP at [facility] on 08/30/2021. Then needs referral to Infectious Disease clinic. - TIME SPENT Time Spent in Discharge (Minutes): 45
[2021-08-23 16:55] VITALS: BP 108/58
== END 2021-08-23 18:45 | disposition home or self-care (01) | DRG 871 ==
LOC: ED 13:14 → MS2 17:21 → ICU 22:44 → OBSVTOIN 08-17 07:17 → MS3 08-21 16:58
PROVIDERS: ADMIT Nurse Practitioner Gerontology; ATTEND Internal Medicine
PROC: 009U3ZX Drainage of Spinal Canal, Percutaneous Approach, Diagnostic (ICD-10-PCS; principal; 2021-08-16)
PROC: 02HV33Z Insertion of Infusion Device into Superior Vena Cava, Percutaneous Approach (ICD-10-PCS; 2021-08-16)
PROC: 3E043XZ Introduction of Vasopressor into Central Vein, Percutaneous Approach (ICD-10-PCS; 2021-08-17)
DX: A41.9 Sepsis, unspecified organism (principal); R65.21 Severe sepsis with septic shock; D65 Disseminated intravascular coagulation [defibrination syndrome]; N17.9 Acute kidney failure, unspecified; E87.1 Hypo-osmolality and hyponatremia; G43.909 Migraine, unspecified, not intractable, without status migrainosus; F41.9 Anxiety disorder, unspecified; F43.10 Post-traumatic stress disorder, unspecified; E86.1 Hypovolemia; I95.9 Hypotension, unspecified; M79.632 Pain in left forearm; R11.2 Nausea with vomiting, unspecified; R19.7 Diarrhea, unspecified; Z11.4 Encounter for screening for human immunodeficiency virus [HIV]; Z20.822 Contact with and (suspected) exposure to COVID-19; Z79.899 Other long term (current) drug therapy
CPT/HCPCS: 0202U; 36415; 62270; 70450; 71045; 71275; 74177; 80048; 80053; 80061; 80076; 80202; 80306; 80320; 81001; 81599; 82247; 82248; 82330; 82375; 82533; 82550; 82728; 82945; 82977; 83540; 83605; 83615; 83735; 84100; 84132; 84157; 84295; 84439; 84443; 84466; 84484; 85025; 85045; 85379; 85384; 85610; 85651; 85730; 86140; 86703; 87040; 87070; 87150; 87205; 89051; 93005; 93306; 93971; 96361; 96365; 96366; 96367; 96375; 99285; 99291; A9270; J1170; J2060; J3370; J7120; Q9967; 83721; 87086

== ENCOUNTER 2022-06-18 14:41 | Emergency (ER) | payer OTHER ==
[2022-06-18] MEDS ORDERED: LORazepam 2 MG/ML VIAL IVP STA (15:02)
[2022-06-18] MEDS ORDERED: SODIUM CHLORIDE 0.9% 1,000 ML IV STA (15:02)
--- NOTE | 2022-06-18 15:15 | ED Physician Documentation ---
PD HPI MHE - Stated complaint Stated Complaint: PANIC ATTACK, VOMITING - Chief complaint Chief Complaint: MHE - History obtained from History obtained from: Patient - Additional information Additional information: 56-year-old gentleman with longstanding anxiety has been having a panic attack for the last 3 or 4 days. He was sent in by his mental health practitioner for evaluation of same. Because of his anxiety he has been unable to eat or drink and vomiting. He does not actually have abdominal pain though. He denies SI or HI. His current medications include duloxetine, hydroxyzine, and trazodone but he he is out of his hydroxyzine. He has a history of alcohol abuse but his last drink was several years ago after successful treatment for same. Review of Systems Constitutional: denies: Fever, Chills Throat: denies: Dental pain / toothache, Sore throat Cardiac: denies: Chest pain / pressure, Palpitations Respiratory: denies: Dyspnea, Cough PD PAST MEDICAL HISTORY - Past Medical History Psych: Anxiety - Present Medications Home Medications: Ambulatory Orders Medication Instructions Recorded Confirmed DULoxetine [Cymbalta] 30 mg PO DAILY 08/17/21 06/18/22 Sumatriptan Succinate [Imitrex] 100 mg PO DAILY PRN 08/17/21 08/17/21 Trazodone HCl 100 mg PO QPM PRN 08/17/21 06/18/22 clonazePAM [Clonazepam] 1 mg PO BID PRN #15 tab 06/18/22 hydrOXYzine HCL [Hydroxyzine HCl] 25 mg PO TID PRN #30 tablet 06/18/22 - Allergies Allergies/Adverse Reactions: Allergies Allergy/AdvReac Type Severity Reaction Status Date / Time No Known Drug Allergies Allergy Verified 08/07/21 13:58 - Social History Does the pt smoke?: No Smoking Status: Never smoker Does the pt drink ETOH?: Yes - Immunizations Immunizations are current?: No - POLST Patient has POLST: No PD ED PE NORMAL - Vitals Vital signs reviewed: Yes - General General: Alert and oriented X 3, Other (Very shaky and tremulous and retching.) - HEENT HEENT: PERRL, EOMI - Neck Neck: Supple, no meningeal sign, No bony TTP - Abdomen Abdomen: Non tender - Neuro Neuro: Alert and oriented X 3, Normal speech Results - Vitals Vitals: Vital Signs - 24 hr 06/18/22 06/18/22 14:45 16:52 Temperature 36.2 C L 36.5 C Heart Rate 101 H 79 Respiratory 24 16 Rate Blood Pressure 147/92 H 103/53 L O2 Saturation 99 100 Oxygen O2 Source Room air PD MEDICAL DECISION MAKING - ED course ED course: 56-year-old gentleman presents with anxiety. Had very modest relief if any afte r milligram of Ativan IM but after 5 mg of IV Haldol was doing very well. His supportive who is a social problems specialist is at the bedside. The patient and family were counseled as to the diagnosis and need for follow- up. I counseled the patient with regard to signs and symptoms that would necessitate an urgent reevaluation in the emergency department. They understand they are welcome to return at any time if worse or if not improving as expected. This document was made in part using voice recognition software. While efforts are made to proofread this documents, sound alike and grammatical errors may occur. Departure - Departure Disposition: 01 Home, Self Care Clinical Impression: Anxiety attack Condition: Good Record reviewed to determine appropriate education?: Yes Instructions: ED Stress React Prescriptions: clonazePAM [Clonazepam] 1 mg PO BID PRN #15 tab PRN Reason: Anxiety hydrOXYzine HCL [Hydroxyzine HCl] 25 mg PO TID PRN #30 tablet PRN Reason: Anxiety Comments: I sent your prescription electronically to [facility] in [place]. Do not drink or drive with either medication. Follow-up with your psychiatrist tomorrow for further evaluation and treatment. Return for new or worsening symptoms. Discharge Date/Time: 06/18/22 17:02
[2022-06-18] MEDS ORDERED: ONDANSETRON 4 MG/2 ML VIAL IVP STA (15:47)
[2022-06-18] MEDS ORDERED: HALOPERIDOL 5 MG/ML VIAL IVP STA (16:06)
[2022-06-18 16:53] VITALS: BP 103/53
== END 2022-06-18 17:02 | disposition home or self-care (01) ==
LOC: ED 14:41
DX: F41.0 Panic disorder [episodic paroxysmal anxiety] (principal)
CPT/HCPCS: 96374; 96375; 99283; J2060